=== PATIENT | female | born 1950 | race Caucasian/White ===

== ENCOUNTER 2019-02-08 20:22 | Inpatient (IN) | payer OTHER, BC ==
[2019-02-08 21:29] LABS: Arterial Blood Carboxyhemoglob 0.8 % (0-1.5); Blood Gas Oxyhemoglobin 87.7 % (94-97); Blood O2 Saturation 88.9 % (92-98.5)
[2019-02-08 22:23] LABS: Absolute Lymphocytes (CBC) 2.5 K/uL (0.7-4.9); Hematocrit 43.8 % (36.0-45.0); Lymphocytes % 19.1 % (15.3-44.8); MPV 7.4 fL (7.6-11.3)
[2019-02-08 22:38] LABS: Protime INR 1.08
[2019-02-08 22:41] LABS: Magnesium 1.8 mg/dL (1.8-2.4); Potassium 3.8 mmol/L (3.5-5.1); Troponin (Emerg Dept Use Only) 0.29 ng/mL (0.0-0.045)
[2019-02-08] MEDS ORDERED: ASPIRIN 81 MG CHEWABLE TABLET ONE (23:02)
[2019-02-08] MEDS ORDERED: ENOXAPARIN 100 MG/ML SYR SQ ONE (23:03)
--- NOTE | 2019-02-08 23:17 | EDPHYS ---
Physician Documentation [facility] Name: Selene Oneal Age: 68 yrs Sex: Female : 1950 Arrival Date: 02/08/2019 Time: 20:26 Bed 26 Private MD: ALIREZA Physician Ryan Pemberton HPI: 02/08 21:59 This 68 yrs old Female presents to ER via Ambulatory with complaints of snw Shortness Of Breath, Asthma Exacerbation. 21:59 The patient has shortness of breath at rest. Onset: The symptoms/episode began/occurred snw gradually, 4 month(s) ago, and became persistent. Duration: The symptoms are continuous, and are steadily getting worse. The patient's shortness of breath is aggravated by supine position. Associated signs and symptoms: Pertinent positives: shortness of breath. Severity of symptoms: At their worst the symptoms were moderate. The patient has experienced similar episodes in the past, chronically. sees Brand Sales Consultant, no home O2. Historical: - Allergies: 20:43 Clarithromycin; aj1 20:43 PENICILLINS; aj1 20:43 mycins; aj1 20:43 Doxycycline (stomach pain); aj1 - Home Meds: 20:43 Albuterol Inhl [Active]; Albuterol Nebulizer [Active]; aspirin 81 mg Oral chew 1 tab aj1 once daily [Active]; atenolol 25 mg Oral tab 1 tab once daily [Active]; Betamethasone Valerate Topical as needed [Active]; CoQ10 daily [Active]; duloxetine 30 mg oral cpDR 1 cap 2 times per day [Active]; famotidine 20 mg Oral tab 1 tab every 12 hours [Active]; fluticasone-salmeterol inhalation inhalation 2 times per day [Active]; gabapentin 100 mg oral cap twice daily [Active]; montelukast 10 mg oral tab 1 tab once daily [Active]; omalizumab subcutaneous subcutaneous every 4 wks [Active]; prednisone 20 mg Oral tab once daily [Active]; simvastatin 20 mg Oral tab 1 tab at bedtime [Active]; tizanidine 4 mg oral cap 1 cap as needed [Active]; Vitamin D3 oral oral daily [Active]; Zyrtec 10 mg Oral tab 1 tab once daily [Active]; - PMHx: 20:43 Bronchitis; fibrobyalgia; Hypertension; Sleep Apnea; Asthma; Osteoporosis; aj1 - Immunization history:: Flu vaccine is not up to date. - Social history:: Smoking status: Patient/guardian denies using tobacco, the patient reports quitting approximately 40 years ago. - Ebola Screening: : Patient denies travel to an Ebola-affected area in the 21 days before illness onset. ROS: 21:45 Constitutional: Negative for fever, chills, and weight loss, Eyes: Negative for injury, snw pain, redness, and discharge, ENT: Negative for injury, pain, and discharge, Neck: Negative for injury, pain, and swelling, Cardiovascular: Negative for chest pain, palpitations, and edema, Abdomen/GI: Negative for abdominal pain, nausea, vomiting, diarrhea, and constipation, Back: Negative for injury and pain, : Negative for injury, bleeding, discharge, and swelling, MS/Extremity: Negative for injury and deformity, Skin: Negative for injury, rash, and discoloration, Neuro: Negative for headache, weakness, numbness, tingling, and seizure, Psych: Negative for depression, anxiety, suicide ideation, homicidal ideation, and hallucinations. 21:45 Respiratory: Positive for shortness of breath, at rest. Exam: 21:45 Constitutional: This is a well developed, well nourished patient who is awake, alert, snw and in no acute distress. Head/Face: Normocephalic, atraumatic. Eyes: Pupils equal round and reactive to light, extra-ocular motions intact. Lids and lashes normal. Conjunctiva and sclera are non-icteric and not injected. Cornea within normal limits. Periorbital areas with no swelling, redness, or edema. ENT: Nares patent. No nasal discharge, no septal abnormalities noted. Tympanic membranes are normal and external auditory canals are clear. Oropharynx with no redness, swelling, or masses, exudates, or evidence of obstruction, uvula midline. Mucous membranes moist. Neck: Trachea midline, no thyromegaly or masses palpated, and no cervical lymphadenopathy. Supple, full range of motion without nuchal rigidity, or vertebral point tenderness. No Meningismus. Chest/axilla: Normal chest wall appearance and motion. Nontender with no deformity. No lesions are appreciated. Cardiovascular: Regular rate and rhythm with a normal S1 and S2. No gallops, murmurs, or rubs. Normal PMI, no JVD. No pulse deficits. Respiratory: Lungs have equal breath sounds bilaterally, clear to auscultation and percussion. No rales, rhonchi or wheezes noted. No increased work of breathing, no retractions or nasal flaring. Abdomen/GI: Soft, non-tender, with normal bowel sounds. No distension or tympany. No guarding or rebound. No evidence of tenderness throughout. Back: No spinal tenderness. No costovertebral tenderness. Full range of motion. Skin: Warm, dry with normal turgor. Normal color with no rashes, no lesions, and no evidence of cellulitis. MS/ Extremity: Pulses equal, no cyanosis. Neurovascular intact. Full, normal range of motion. Neuro: Awake and alert, GCS 15, oriented to person, place, time, and situation. Cranial nerves II-XII grossly intact. Motor strength 5/5 in all extremities. Sensory grossly intact. Cerebellar exam normal. Normal gait. Psych: Awake, alert, with orientation to person, place and time. Behavior, mood, and affect are within normal limits. Vital Signs: 20:43 BP 122 / 81; Pulse 85; Resp 20; Temp 97.5(TE); Pulse Ox 96% on R/A; Weight 86.18 kg aj1 (R); Height 5 ft. 5 in. (165.10 cm) (R); Pain 0/10; 21:30 BP 120 / 79; Pulse 85; Resp 19; Pulse Ox 97% on R/A; rv 22:30 BP 96 / 71; Pulse 85; Resp 18; Pulse Ox 95% on R/A; rv 23:00 BP 112 / 82; Pulse 84; Resp 16; Pulse Ox 97% on R/A; rv 23:45 BP 139 / 102; Pulse 82; Resp 15; Pulse Ox 99% on 2 lpm NC; rv 20:43 Body Mass Index 31.62 (86.18 kg, 165.10 cm) aj MDM: 21:09 Patient medically screened. snw 23:12 Data reviewed: vital signs, nurses notes. Data interpreted: Pulse oximetry: on room air snw is 96 %. Interpretation: normal. Counseling: I had a detailed discussion with the patient and/or guardian regarding: the historical points, exam findings, and any diagnostic results supporting the discharge/admit diagnosis, the presence of at least one elevated blood pressure reading (>120/80) during this emergency department visit, lab results, radiology results, the need for further work-up and treatment in the hospital. Physician consultation: Doug Hernandez DO was called at 23:14, was contacted at 23:14, regarding admission, to the telemetry unit. 02/08 21:04 Order name: ABG snw 02/08 21:33 Order name: Basic Metabolic Panel; Complete Time: 22:48 snw 02/08 21:33 Order name: CBC with Diff; Complete Time: 22:26 snw 02/08 21:33 Order name: Magnesium; Complete Time: 22:48 snw 02/08 21:33 Order name: NT PRO-BNP; Complete Time: 22:48 snw 02/08 21:33 Order name: PT-INR; Complete Time: 22:55 snw 02/08 20:47 Order name: Chest Pa And Lat (2 Views) XRAY aj1 02/08 21:33 Order name: Troponin (emerg Dept Use Only); Complete Time: 22:48 snw 02/08 21:33 Order name: EKG; Complete Time: 21:34 snw 02/08 21:33 Order name: Cardiac monitoring; Complete Time: 22:58 snw 02/08 21:33 Order name: EKG - Nurse/Tech; Complete Time: 22:58 w 02/08 21:33 Order name: DD; Complete Time: 22:55 snw 02/08 21:33 Order name: IV Saline Lock; Complete Time: 22:08 w 02/08 21:33 Order name: Labs collected and sent; Complete Time: 22:08 snw 02/08 21:33 Order name: O2 Per Protocol; Complete Time: 22:58 snw 02/08 21:33 Order name: O2 Sat Monitoring; Complete Time: 22:58 snw Administered Medications: 23:12 Drug: Lovenox 1 mg/kg Route: Sub-Q; Site: right lower abdomen; rv 23:55 Follow up: Response: No adverse reaction rv 23:13 Drug: Aspirin Chewable Tablet 324 mg Route: PO; rv 23:55 Follow up: Response: No adverse reaction rv Disposition: 02/08/19 23:16 Hospitalization ordered by Doug Hernandez for Inpatient Admission. Preliminary diagnosis are Hypoxemia, renal insufficiency. - Bed requested for Telemetry/MedSurg (Inpatient). - Status is Inpatient Admission. rv - Condition is Stable. - Problem is an acute exacerbation. - Symptoms have worsened. UTI on Admission? No Addendum: 02/11/2019 07:41 Co-signature as Attending Physician, Ryan Pemberton MD I agree with the assessment and c montero plan of care. Signatures: Dispatcher [employer] Isis Reed RN RN aj1 Emma Shabazz RN Ryan Wilson MD MD cha Therrien, Shelly, CMO & PRESIDENT-C CMO & PRESIDENT-Csnw Moody Adams, RN RN rv Corrections: (The following items were deleted from the chart) 02/08 23:37 23:16 Hospitalization Ordered by Doug Hernandez DO for Inpatient Admission. Preliminary diagnosis is Hypoxemia; renal insufficiency. Bed requested for Telemetry/MedSurg (Inpatient). Status is Inpatient Admission. Condition is Stable. Problem is an acute exacerbation. Symptoms have worsened. UTI on Admission? No. snw 23:58 23:37 02/08/2019 23:16 Hospitalization Ordered by Doug Hernandez DO for Inpatient rv Admission. Preliminary diagnosis is Hypoxemia; renal insufficiency. Bed requested for Telemetry/MedSurg (Inpatient). Status is Inpatient Admission. Condition is Stable. Problem is an acute exacerbation. Symptoms have worsened. UTI on Admission? No. mw
--- NOTE | 2019-02-08 23:17 | ER ---
Nurse's Notes [facility] Name: Selene Oneal Age: 68 yrs Sex: Female : 1950 Arrival Date: 02/08/2019 Time: 20:26 Bed 26 Private MD: Diagnosis: Hypoxemia;renal insufficiency Presentation: 02/08 20:30 Presenting complaint: Patient states: Cough, shortness of breath for the past 2 months. aj1 States that she checked her oxygen this morning and her O2 sat was 84%. O2 sat is currently 97% on room air. Denies fever. Transition of care: patient was not received from another setting of care. Onset of symptoms was 2018. Risk Assessment: Do you want to hurt yourself or someone else? Patient reports no desire to harm self or others. Initial Sepsis Screen: Does the patient meet any 2 criteria? No. Patient's initial sepsis screen is negative. Does the patient have a suspected source of infection? No. Patient's initial sepsis screen is negative. Care prior to arrival: None. 20:30 Method Of Arrival: Ambulatory aj1 20:30 Acuity: RUT 3 aj1 Triage Assessment: 20:43 General: Appears in no apparent distress. comfortable, Behavior is calm, cooperative, aj1 appropriate for age. Pain: Denies pain. Neuro: Level of Consciousness is awake, alert, obeys commands, Oriented to person, place, time, situation. Cardiovascular: Patient's skin is warm and dry. Respiratory: Reports shortness of breath Airway is patent Respiratory effort is even, unlabored, Respiratory pattern is regular, symmetrical, Onset: The symptoms/episode began/occurred 2 months ago, the patient has mild shortness of breath. Historical: - Allergies: 20:43 Clarithromycin; aj1 20:43 PENICILLINS; aj1 20:43 mycins; aj1 20:43 Doxycycline (stomach pain); aj1 - Home Meds: 20:43 Albuterol Inhl [Active]; Albuterol Nebulizer [Active]; aspirin 81 mg Oral chew 1 tab aj1 once daily [Active]; atenolol 25 mg Oral tab 1 tab once daily [Active]; Betamethasone Valerate Topical as needed [Active]; CoQ10 daily [Active]; duloxetine 30 mg oral cpDR 1 cap 2 times per day [Active]; famotidine 20 mg Oral tab 1 tab every 12 hours [Active]; fluticasone-salmeterol inhalation inhalation 2 times per day [Active]; gabapentin 100 mg oral cap twice daily [Active]; montelukast 10 mg oral tab 1 tab once daily [Active]; omalizumab subcutaneous subcutaneous every 4 wks [Active]; prednisone 20 mg Oral tab once daily [Active]; simvastatin 20 mg Oral tab 1 tab at bedtime [Active]; tizanidine 4 mg oral cap 1 cap as needed [Active]; Vitamin D3 oral oral daily [Active]; Zyrtec 10 mg Oral tab 1 tab once daily [Active]; - PMHx: 20:43 Bronchitis; fibrobyalgia; Hypertension; Sleep Apnea; Asthma; Osteoporosis; aj1 - Immunization history:: Flu vaccine is not up to date. - Social history:: Smoking status: Patient/guardian denies using tobacco, the patient reports quitting approximately 40 years ago. - Ebola Screening: : Patient denies travel to an Ebola-affected area in the 21 days before illness onset. Screenin:38 Abuse screen: Denies threats or abuse. Denies injuries from another. Nutritional rv screening: No deficits noted. Tuberculosis screening: No symptoms or risk factors identified. Fall Risk None identified. Assessment: 21:24 General: Appears in no apparent distress. comfortable, Behavior is calm, cooperative. rv Pain: Denies pain. Neuro: Level of Consciousness is awake, alert, obeys commands, Oriented to person, place, time, situation. 22:37 Cardiovascular: Rhythm is regular. Respiratory: Airway is patent Breath sounds are rv coarse in left posterior upper lobe and left posterior lower lobe. GI: No signs and/or symptoms were reported involving the gastrointestinal system. : No signs and/or symptoms were reported regarding the genitourinary system. EENT: No signs and/or symptoms were reported regarding the EENT system. Derm: Skin is intact. Musculoskeletal: No signs and/or symptoms reported regarding the musculoskeletal system. 22:54 Reassessment: Laboratory staff Lui called and relayed critical result of D-Dimer cc3 which is 4330, SURFACE GRINDING MACHINE HAND Simona informed. Vital Signs: 20:43 BP 122 / 81; Pulse 85; Resp 20; Temp 97.5(TE); Pulse Ox 96% on R/A; Weight 86.18 kg aj1 (R); Height 5 ft. 5 in. (165.10 cm) (R); Pain 0/10; 21:30 BP 120 / 79; Pulse 85; Resp 19; Pulse Ox 97% on R/A; rv 22:30 BP 96 / 71; Pulse 85; Resp 18; Pulse Ox 95% on R/A; rv 23:00 BP 112 / 82; Pulse 84; Resp 16; Pulse Ox 97% on R/A; rv 23:45 BP 139 / 102; Pulse 82; Resp 15; Pulse Ox 99% on 2 lpm NC; rv 20:43 Body Mass Index 31.62 (86.18 kg, 165.10 cm) aj1 ED Course: 20:26 Patient arrived in ED. ds1 20:37 Triage completed. aj1 20:43 Arm band placed on Patient placed in waiting room, Patient notified of wait time. aj1 20:58 Moody Adams RN is Primary Nurse. rv 21:04 Simoan Limon FNP-C is PHCP. snw 21:04 Ryan Pemberton MD is Attending Physician. snw 21:12 Chest Pa And Lat (2 Views) XRAY In Process Unspecified. EDMS 22:07 Missed attempt(s): 22 gauge in right antecubital area. lt1 22:07 Inserted saline lock: 22 gauge in left antecubital area, using aseptic technique. lt1 22:37 Patient has correct armband on for positive identification. Call light in reach. Side rv rails up X 1. Adult w/ patient. court recording monitor on. Pulse ox on. NIBP on. 23:15 Doug Hernandez DO is Hospitalizing Provider. snw 23:55 No provider procedures requiring assistance completed. Patient admitted, IV remains in rv place. Administered Medications: 23:12 Drug: Lovenox 1 mg/kg Route: Sub-Q; Site: right lower abdomen; rv 23:55 Follow up: Response: No adverse reaction rv 23:13 Drug: Aspirin Chewable Tablet 324 mg Route: PO; rv 23:55 Follow up: Response: No adverse reaction rv Outcome: 23:16 Decision to Hospitalize by Provider. snw 23:57 Admitted to Med/surg accompanied by nurse, via wheelchair, room 215, with oxygen, with rv chart, Report called to dave yu 23:57 Condition: stable 23:57 Discharge instructions given to patient, Instructed on the need for admit, Demonstrated understanding of instructions. 23:58 Patient left the ED. rv Signatures: Dispatcher [employer] Isis Reed RN RN aj1 Simona Limon, LEAD PROGRAMMER ANALYST-C LEAD PROGRAMMER ANALYST-Csnw Janet Mcnulty ds1 Moody Adams RN RN rv Niru Reynolds cc3 Kylee Conroy 1
--- NOTE | 2019-02-08 23:48 | P.HP ---
Certification for Inpatient Patient admitted to: Inpatient With expected LOS: >2 Midnights Patient will require the following post-hospital care: Home Health Services Practitioner: I am a practitioner with admitting privileges, knowledge of patient current condition, hospital course, and medical plan of care. Services: Services provided to patient in accordance with Admission requirements found in Title 42 Section 412.3 of the Code of Federal Regulations Patient History Date of Service: 02/08/19 Primary Care Provider: Dr. Segura([facility]); Cardiology-Dr. Acuña; Pulm- Dr. Joel Reason for admission: Shortness of breath History of Present Illness: 68-year-old female presented to the emergency room with shortness of breath. Patient with history of asthma, obstructive sleep apnea, hypertension, prior tobacco use, fibromyalgia, hyperlipidemia and seasonal allergies. Patient has been reporting shortness of breath for the past several weeks. This is been getting worse. Apparently had seen her gravity prospecting supervisor about a week ago. She was given doxycycline for bronchitis. She has taking prednisone often on over the past several weeks. Her shortness of breath has not improved. She has reported shortness of breath with exertion with mild chest pain. She reports a cough and wheezing. She denies any fever, chills. Today she noted that her oxygen saturations were in the low 80 percentile. She was able to use her 's saturation monitored to evaluate. Patient came to the ER for further evaluation. In the ER patient appeared stable. On lab ABG showed a pH of 7.47 with a pCO2 of 30 and a PO2 of 56. Vital signs were stable. White count 13.1, hemoglobin 14.2. Sodium 144, potassium 3.8. BUN of 25, creatinine 1.9 with a GFR of 26. Glucose 143. Troponin was elevated at 0.24 BNP elevated at 7800, D-dimer was elevated at 4330. Chest x-ray unremarkable. Patient was given oxygen with improvement. Patient admitted for further evaluation and treatment. When I saw the patient ER, she appeared stable. She did not appear in any respiratory distress. Patient sees pulmonology and Cardiology at [facility] in [place]. Patient may have underlying chronic kidney disease but she is no suree. She has had no prior cardiac evaluation or poor heart attack. She was told that she may have underlying pulmonary hypertension. Allergies clarithromycin Allergy (Unverified 05/24/17 17:17) Unknown Penicillins Allergy (Unverified 05/24/17 17:17) Unknown mycins Allergy (Uncoded 05/24/17 17:17) Unknown Home medications list reviewed: Yes - Past Medical/Surgical History Diabetic: No -: Hypertension -: Asthma -: Fibromyalgia -: Prior tobacco use -: Seasonal allergies -: Hyperlipidemia -: Foot surgery Psychosocial/ Personal History: Patient is . Lives at home. - Family History Father -: Lung disease (COPD) - Social History Smoking Status: Former smoker Counseled patient to stop smoking for: less than 10 minutes Smoking therapy provided: Yes Patient receptive to therapy: Yes Alcohol use: No CD- Drugs: No Caffeine use: Yes Place of Residence: Home Review of Systems General: As per HPI Eyes: Unremarkable ENT: Nose Congestion, As per HPI Respiratory: Shortness of Breath, SOB with Excertion, As per HPI Cardiovascular: Chest Pain, As per HPI Gastrointestinal: Unremarkable Genitourinary: Unremarkable Musculoskeletal: Unremarkable Integumentary: Unremarkable Neurological: Unremarkable Lymphatics: Unremarkable Physical Examination - Physical Exam General: Alert, In no apparent distress, Oriented x3, Cooperative HEENT: Atraumatic, Normocephalic, PERRLA, Mucous membr. moist/pink Neck: Supple, No Thyromegaly Respiratory: Clear to auscultation bilaterally, Normal air movement Cardiovascular: Normal pulses, Regular rate/rhythm Gastrointestinal: Normal bowel sounds, Soft and benign, Non-distended, No ascites, No tenderness, No masses, No rebound, No guarding Musculoskeletal: No contractures, No erythema, No tenderness, No warmth Integumentary: No tenderness/swelling, No erythema, No warmth, No cyanosis Neurological: Normal speech, Normal strength at 5/5 x4 extr, Normal tone, Normal affect - Studies Laboratory Data (last 24 hrs) 02/08/19 22:05: PT 12.7 H, INR 1.08 02/08/19 22:05: WBC 13.1 H, Hgb 14.7, Hct 43.8, Plt Count 271 02/08/19 22:05: Sodium 144, Potassium 3.8, BUN 25 H, Creatinine 1.90 H, Glucose 143 H, Magnesium 1.8 Assessment and Plan - Plan Impression: Shortness of breath with chest pain likely related to asthma exacerbation with hypoxia Elevated troponin suspect underlying CAD Hypertension Hyperlipidemia Chronic kidney disease, stage IV Fibromyalgia Obstructive sleep apnea Obesity Plan: Shortness of breath with chest pain likely related to asthma exacerbation with hypoxia: Patient be admitted for further evaluation and treatment. Shortness of breath and chest pain may be related to asthma exacerbation versus cardiac etiology. Will provide oxygen to maintain sats above 93%. Will provide asthma medication as well. Continue prednisone 20 mg 1 pill twice daily. Will consult pulmonology to further evaluate. Will need to consider V/Q scan to evaluate for possible underlying embolism. Will obtain venous Doppler of the lower extremities to rule out DVT. Patient with elevated troponin. Cardiac workup will follow. Cardiology consulted. Will obtain echocardiogram to further assess. Patient will be kept NPO after midnight in the event that the patient will require cardiac evaluation. Patient will likely require oxygen at discharge. Will obtain procalcitonin to rule out infectious cause. Will also obtain blood and sputum culture. Daytime hospitalist team will continue her care. Anticipate discharge in the next 48-72 hr pending workup in improvement. Elevated troponin suspect underlying CAD: Cardiology to further assess. Continue to monitor cardiac enzymes and telemetry. Will continue aspirin. Patient given Lovenox in the emergency room. Will continue with DVT prophylaxis for now all. Await further recommendation from Cardiology. Will keep the patient NPO for possible cardiac evaluation. Hypertension: Patient normally takes atenolol. Will provide metoprolol instead. Hyperlipidemia: Will continue with Lipitor. Chronic kidney disease, stage IV: Patient likely has underlying chronic renal disease. She reports that her PCP had mentioned that she has stage IV disease. Will obtain renal ultrasound to further assess. Nephrology consulted for further recommendation. Fibromyalgia: Will obtain and restart home medication. Obstructive sleep apnea: Will continue CPAP at night. Obesity: Will measure BMI. Address lifestyle modification education. Discharge Plan: Home Plan to discharge in: 72 Hours - Advance Directives Does patient have a Living Will: No Does patient have a Durable POA for Healthcare: No - Code Status/Comfort Care Code Status Assessed: Yes (Patient is full code) Time Spent Managing Pts Care (In Minutes): 55
[2019-02-09] MEDS ORDERED: GABAPENTIN 100 MG CAP PO PRN (00:18)
[2019-02-09] MEDS ORDERED: ONDANSETRON 4 MG/2 ML VIAL IV PRN (00:18)
[2019-02-09] MEDS ORDERED: ACETAMINOPHEN 500 MG TAB PO PRN (00:18)
[2019-02-09 01:59] LABS: Urine Appearance CLEAR; Urine Bilirubin NEGATIVE (NEG); Urine Blood NEGATIVE (NEG); Urine Color YELLOW; Urine Glucose NEGATIVE (NEG); Urine Protein NEGATIVE (NEG); Urine Specific Gravity 1.025 (1.005-1.030); Urine Urobilinogen 0.2 mg/dL (0.2-1.0); Urine pH 5.5 (5.0-7.0)
[2019-02-09 02:02] LABS: Urine Microscopic Reflex ORDER UMIC
[2019-02-09 03:33] LABS: Calcium Oxalate Crystals- Ur MANY (NONE SEEN); Urine Bacteria <20 /HPF (<20); Urine Culture Reflex Order REFLEXED; Urine RBC NONE SEEN /HPF (NONE SEEN)
[2019-02-09] MEDS: PANTOPRAZOLE 40MG TABLET PO SCH (05:15)
[2019-02-09] MEDS: METOPROLOL TAR 25 MG TAB PO SCH ×2 (05:15→18:42)
[2019-02-09 06:06] LABS: Absolute Lymphocytes (CBC) 1.3 K/uL (0.7-4.9); Basophils % 0.8 % (0-1.3); Hematocrit 41.1 % (36.0-45.0); Lymphocytes % 14.8 % (15.3-44.8); MPV 7.6 fL (7.6-11.3); RBC Red Blood Cell Count 4.62 M/uL (3.86-4.86)
[2019-02-09] MEDS: IPRATROPIUM BROM 0.5MG/2.5ML NEB PRN (06:20)
[2019-02-09] MEDS: ARFORMOTEROL TARTRATE 15 MCG/2 ML VIAL.NEB NEB SCH ×2 (06:20→19:09)
[2019-02-09] MEDS: ALBUTEROL 2.5 MG/3 ML NEB SOL NEB PRN (06:20)
[2019-02-09 06:32] LABS: CKMB Creatine Kinase MB 2.2 ng/mL (0.3-3.6); Magnesium 1.9 mg/dL (1.8-2.4); Potassium 4.3 mmol/L (3.5-5.1); Thyroid Stimulating Hormone 0.45 uIU/mL (0.360-3.740); Troponin I 0.19 ng/mL (0.0-0.045)
--- NOTE | 2019-02-09 06:44 | RAD REPORT ---
EXAM DESCRIPTION: RAD - Chest Pa And Lat (2 Views) - 02/08/2019 9:14 pm CLINICAL HISTORY: SOB COMPARISON: March 2015 TECHNIQUE: PA and lateral views of the chest were obtained. FINDINGS: The lungs are clear. Interstitial pattern matches the comparison. Heart size is normal an d central vasculature is within normal limits. No pleural effusion or pneumothorax seen. No acute b bruce finding noted. No aortic abnormality. IMPRESSION: No acute cardiopulmonary process. No significant interval change.
--- NOTE | 2019-02-09 07:24 | EKG ---
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
--- NOTE | 2019-02-09 08:21 | RAD REPORT ---
EXAM DESCRIPTION: US - Extrem Venous W Compress David - 02/09/2019 8:08 am CLINICAL HISTORY: Leg pain and swelling, abnormal D-dimer COMPARISON: None. TECHNIQUE: Real-time sonographic evaluation of the bilateral lower extremity common femoral, superfi cial femoral, popliteal and posterior tibial veins was performed. FINDINGS: Normal compressibility, flow augmentation, phasic flow and spontaneous flow are identified in the left and right lower extremity common femoral, superficial femoral, popliteal and posterior t ibial veins. No intraluminal filling defects seen. IMPRESSION: No DVT in either lower extremity.
--- NOTE | 2019-02-09 08:22 | RAD REPORT ---
EXAM DESCRIPTION: US - Renal Ultrasound-Complete - 02/09/2019 8:08 am CLINICAL HISTORY: Abnormal renal function COMPARISON: None. FINDINGS: The right kidney measures 9.4 x 4.4 x 5.6 cm. The left kidney measures 10.2 x 4.9 x 4.6 c m. Renal cortical thickness and echogenicity are normal. No hydronephrosis or suspicious renal mass. Contracted urinary bladder shows no suspicious finding. IMPRESSION: No hydronephrosis or suspicious renal mass. No other significant findings.
[2019-02-09] MEDS ORDERED: predniSONE 20 MG TAB PO SCH (09:00)
[2019-02-09] MEDS ORDERED: ENOXAPARIN 40 MG/0.4 ML SQ SCH (09:00)
[2019-02-09] MEDS ORDERED: ASPIRIN 81 MG CHEWABLE TABLET PO SCH (09:00)
[2019-02-09] MEDS ORDERED: ENOXAPARIN 60 MG/0.6 ML SQ ONE (11:30)
[2019-02-09] MEDS ORDERED: NA CHLORIDE 0.9% 250 ML IV ONE (11:41)
[2019-02-09] MEDS ORDERED: NA CHLORIDE 0.9% 1,000 ML IV SCH (12:00)
--- NOTE | 2019-02-09 12:01 | P.CNS ---
Date of Consult: 02/09/19 Primary Care Provider: Dr. Segura([facility]); Cardiology-Dr. Acuña; Pulm- Dr. Joel Chief Complaint: Respiratory failure History of Present Illness: Patient is a pleasant 68-year-old lady who was obstructive airways disease presumed asthma has never smoked compliant with her inhalers having problems for the past year she used to mobile lawn using a tractor past 2 months patient has become worse having more shortness of breath cough congestion and describes it as a bronchitis compliant with it inhalers no relief admitted with hypoxemia chest x-rays clear apparently she also fell 2 weeks ago also has some pleuritic chest pain no prior history of coronary artery disease denies any chest pain on exertion patient is compliant with her Advair all her primary care doctor was at our [facility] patient also states that her condition became acutely worse on Friday apparently she had a transient blacked out and appeared in the emergency Allergies clarithromycin Allergy (Verified 02/09/19 00:16) Unknown doxycycline Allergy (Verified 02/09/19 01:07) Nausea/Vomiting Penicillins Allergy (Verified 02/09/19 00:16) Unknown mycins Allergy (Uncoded 02/09/19 00:16) Unknown Home Medications: Albuterol Neb [Proventil 0.083% Neb Soln] 2.5 mg NEB QID PRN 02/09/19 Albuterol Sulfate [Albuterol Sulfate Hfa] 2 puff IN TID PRN 02/09/19 Aspirin 81 mg PO DAILY 02/09/19 Atenolol [Tenormin*] 25 mg PO DAILY 02/09/19 Betamethasone Dipropionate 1 zina TOP BID PRN 02/09/19 Cetirizine HCl [Zyrtec] 10 mg PO DAILY 02/09/19 Cholecalciferol (Vitamin D3) [Vitamin D3] 2,000 unit PO DAILY 02/09/19 Duloxetine HCl 20 mg PO DAILY 02/09/19 Epinephrine [Epipen] 0.3 ml IM PRN 02/09/19 Famotidine 20 mg PO BID 02/09/19 Fluticasone/Salmeterol [Advair Hfa 230-21 Mcg Inhaler] 2 puff IH BID 02/09/19 Gabapentin 100 mg PO BID 02/09/19 Montelukast [Singulair] 10 mg PO DAILY 02/09/19 Omalizumab [Xolair] 300 mg SQ SEECOM 02/09/19 Simvastatin 20 mg PO BEDTIME 02/09/19 Tizanidine [Zanaflex*] 4 mg PO Q8HP PRN 02/09/19 Ubidecarenone [Co Q-10] 100 mg PO DAILY 02/09/19 predniSONE [Prednisone] 20 mg PO DAILY 02/09/19 - Past Medical/Surgical History Diabetic: No -: Hypertension -: Asthma -: Fibromyalgia -: Prior tobacco use -: Seasonal allergies -: Hyperlipidemia -: Foot surgery Psychosocial/ Personal History: Patient is . Lives at home. - Family History Father Medical History: Lung disease (COPD) - Social History Alcohol use: No CD- Drugs: No Caffeine use: Yes Place of Residence: Home Review of Systems 10-point ROS is otherwise unremarkable Physical Examination Temp Pulse Resp BP Pulse Ox 97 F 83 20 126/78 94 02/09/19 08:00 02/09/19 08:00 02/09/19 08:00 02/09/19 08:00 02/09/19 08:00 General: Alert, In no apparent distress, Oriented x3 HEENT: Atraumatic Neck: Supple Respiratory: Clear to auscultation bilaterally, Diminished Cardiovascular: No edema, Regular rate/rhythm, Normal S1 S2 Gastrointestinal: Normal bowel sounds, Soft and benign Musculoskeletal: No clubbing, No swelling Laboratory Data (last 24 hrs) 02/08/19 22:05: PT 12.7 H, INR 1.08 02/08/19 22:05: WBC 13.1 H, Hgb 14.7, Hct 43.8, Plt Count 271 02/08/19 22:05: Sodium 144, Potassium 3.8, BUN 25 H, Creatinine 1.90 H, Glucose 143 H, Magnesium 1.8 - Problems (1) Asthma exacerbation Current Visit: Yes Status: Acute Plan: Patient is 68 years of age with poorly controlled asthma on Advair admitted with worsening asthma no clinical evidence of sepsis she was in respiratory failure hypoxemia respiratory alkalosis chest x-ray hyperinflated apparently she had an acute deterioration since Friday patient's D-dimer is significantly elevated she is hypoxic agree with CT pulmonary angiogram if negative then the patient can be discharged home on Advair and prednisone 2D echocardiogram Qualifiers: Asthma severity: severe
--- NOTE | 2019-02-09 12:16 | ECHO ---
HEIGHT: 5 ft 5 in WEIGHT: 191 lb 14.4 oz DATE OF STUDY: 02/09/[address]: Doug Hernandez DO 2-DIMENSIONAL: YES M.MODE: YES DOPPLER: YES COLOR FLOW: YES TDS: NO PORTABLE: NO DEFINITY: NO BUBBLE STUDY: NO DIAGNOSIS: SHORTNESS OF BREATH, ELEVATED TROPONIN, PULMONARY HYPERTENSION CARDIAC HISTORY: CATHERIZATION: NO SURGERY: NO PROSTHETIC VALVE: NO PACEMAKER: NO MEASUREMENTS (cm) DIASTOLIC (NORMALS) SYSTOLIC (NORMALS) IVSd 1.1 (0.6-1.2) LA Diam (1.9-4.0) LVEF 73% LVIDd 3.5 (3.5-5.7) LVIDs 2.1 (2.0-3.5) %FS 41% LVPWd 1.0 (0.6-1.2) Ao Diam 2.9 (2.0-3.7) 2 DIMENSIONAL ASSESSMENT: RIGHT ATRIUM: DILATED LEFT ATRIUM: NORMAL RIGHT VENTRICLE: DILATED LEFT VENTRICLE: NORMAL TRICUSPID VALVE: NORMAL MITRAL VALVE: NORMAL PULMONIC VALVE: NORMAL AORTIC VALVE: NORMAL PERICARDIAL EFFUSION: NONE AORTIC ROOT: NORMAL LEFT VENTRICULAR WALL MOTION: PARADOXICAL SEPTAL MOTION SEEN IN RIGHT VENTRICLE PRESSURE OVERLOAD. DOPPLER/COLOR FLOW: MODERATE TRICUSPID REGURGITATION. SEVERE PULMONARY HYPERTENSION ESTIMATED RIGHT VENTRICULAR SYSTOLIC PRESSURE 64mmHg. COMMENTS: NORMAL LEFT VENTRICULAR EJECTION FRACTION WITH PARADOXICAL SEPTAL MOTION. DILATED RIGHT ATRIUM AND VENTRICLE. SEVERE PULMONARY HYPERTENSION. TECHNOLOGIST: FILIPE LARIOS
--- NOTE | 2019-02-09 12:44 | CON ---
Identification: Mrs. Fragoso is 68. Chief Complaint: Shortness of breath, near syncope. History Of Present Illness: Mrs. Fragoso has been having a lot of trouble with shortness of breath. She has attributed to asthma. Seen a lung specialist who knows her. They have tried some antibiot ics that did not seem to help. One of them may have made it worse making her throw up. Sometime she describes her shortness of breath as an elephant sitting on her chest. She describes it various way s. She does admit to having dyspnea on exertion, and some tightness and pressure and elephant feelin gs. Since she has been here in the hospital, her troponins are abnormal and I have recommended a car diac catheterization to her. 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 Her EKG shows a septal MT. She has underlying lung condition. She has d yslipidemia. She does not have diabetes. She takes blood pressure medicines. Outpatient Medications: Tizanidine, simvastatin, prednisone, omalizumab, montelukast, gabapentin, fl uticasone with salmeterol, famotidine, EpiPen p.r.n., duloxetine, betamethasone, atenolol, aspirin, a lbuterol, cetirizine. Allergies: SHE REPORTS DRUG ALLERGIES TO CLARITHROMYCIN, DOXYCYCLINE, PENICILLIN, AND ALL OF THE MYC IN DRUGS. Physical Examination: Vital Signs: She is 5 feet 5 inches tall, 191 pounds, body mass index 31. General: Obese, alert, oriented, pleasant, not in distress. Not having chest pain or shortness of b reath during the exam. Lungs: Do not reveal crackles or wheeze. Heart: Within normal limits. Abdomen: Soft. Extremities: Mild edema. Distal pulses palpable. Diagnostic Data: Her EKG shows a septal MT and her troponins are abnormal. Recommendations: So again I have recommended cardiac cath and the plan right now is to find an accep table place for her to do a cardiac cath with her usual screen printing press operator. MARLO/JAYSHREE Voice ID: [id number] Report ID: [id number]
--- NOTE | 2019-02-09 12:45 | RAD REPORT ---
EXAM DESCRIPTION: CT - Chest For Pe Angio - 02/09/2019 12:32 pm CLINICAL HISTORY: SOB, elevated D dimer, r/out PEtwo-view chest February 08 COMPARISON: Chest Pa And Lat (2 Views) dated 02/08/2019 TECHNIQUE: Dynamically enhanced 3 mm thick images of the chest were obtained during administration o f approximately 150mL Isovue 370 IV contrast. Coronal and oblique MIP reconstruction images were gene rated and reviewed. Exam utilizes a protocol to evaluate the pulmonary arterial tree. All CT scans are performed using dose optimization technique as appropriate and may include automated exposure control or mA/KV adjustment according to patient size. FINDINGS: Large pulmonary embolus is present at the branch point of the left pulmonary artery into t he left upper and left lower lobe pulmonary arteries. Embolic disease extends into the left upper lob e are branches and into multiple segmental branches in the left lower lobe. Large pulmonary embolus fills the branch point of the right pulmonary artery into the right upper lob e, right middle lobe and right lower lobe branches. Segmental and subsegmental branch emboli present in the right lower lobe. There is a saddle embolus present with a bridging thrombus across the midlin e. No pulmonary hemorrhage is present. Atelectasis changes are present. Right atrial enlargement is present. Right ventricle is within normal range. No pericardial thickenin g or effusion. The aorta as imaged shows no acute or suspicious finding. No infiltrate or mass in the lung parenchyma. No pleural effusion or pleural thickening. No mediastinal or hilar suspicious masses. No chest wall masses or abnormal axillary lymphadenopathy. Ordering physician was notified by telephone approximately 12:35 p.m.. IMPRESSION: Large pulmonary emboli are present at the branch points of the right and left pulmonary arteries into the lobar branches. There are additional segmental and subsegmental branch emboli. Saddle embolus is present as well. No pulmonary hemorrhage.
[2019-02-09 13:49] LABS: CKMB Creatine Kinase MB 1.8 ng/mL (0.3-3.6); Troponin I 0.14 ng/mL (0.0-0.045)
--- NOTE | 2019-02-09 15:58 | CON ---
Date of Consultation: 02/09/2019 Reason For Consultation: Elevated BUN and creatinine, fluid management. History Of Present Illness: This is a pleasant 68-year-old female with significant past medical history of bronchial asthma, GERD, hyperlipidemia, polymyalgia rheumatica. Patient according to her, has been documented for chronic kidney disease, even though reviewing the record from her primary care showing creatinine back in September with creatinine of 1, GFR of 58 to 60. Patient denied taking any nonsteroidal. She has urine hesitancy. No abdominal pain. The patient came to the hospital complaining from nausea and vomiting with shortness of breath and chest tightness. Primary workup showed elevation in BUN and creatinine. For that reason, we have been consulted. Creatinine upon admission was 1.9. GFR down to 26. The patient was started on IV hydration. Creatinine down to 1.2. GFR of 44. Past Medical History: 1. Bronchial asthma. 2. GERD. 3. Hyperlipidemia. 4. Polymyalgia rheumatica. 5. Hypertension. Social History: Ex-smoker. Denied alcohol. Denied drug abuse. Allergies: CLARITHROMYCIN, DOXYCYCLINE AND PENICILLIN. Past Surgical History: Noncontributory. Family History: Positive for hypertension. Review of Systems: Head and Neck: No red eye. No ear pain. GI: No nausea. No vomiting. : Has nocturia. Lens Hardener: No vaginal discharge. Respiratory: Has shortness of breath, has cough. Cardiovascular: No joint pain. Endocrine: No polydipsia. Skin: No rash. Neuro: Has neuropathy, has polymyalgia rheumatica. Musculoskeletal: Has occasional joint pain. No swelling. Physical Examination: Vital Signs: When I saw the patient, blood pressure 126/78, pulse of 83, afebrile. Patient had good urine output. Chest: Clear to auscultation. Heart: S1, S2. Regular. Abdomen: Soft, nontender. No renal bruit. Extremities: No edema. Neurological: Alert and oriented x3. Nonfocal. Reviewing the record back in September 2018 creatinine 0.8 to 1, GFR 63 to 58. Upon admission, sodium 144, potassium 3.8, bicarb 24, BUN 25, creatinine 1.9, GFR 26 , magnesium 1.8, calcium 9.4. BNP 7812. Troponin 0.2. WBC 8.8, H and H 13.9/ 41.1, platelets of 234. Urinalysis; specific gravity of 1.025. +1 leuko esterase, negative for protein. Renal ultrasound 9.4/10.8, no hydronephrosis. Chest x-ray, no cardiomegaly. Physical Examination: Vital Signs: Blood pressure 126/78, pulse of 83, afebrile. Chest: Clear to auscultation. Heart: S1, S2 regular. Abdomen: Soft, nontender. No renal bruit. Extremities: No edema. Neurological: Alert and oriented. Nonfocal. No tremor. Current Medications: The patient on include Tylenol breathing treatment, atorvastatin, Lovenox, gabapentin, metoprolol, pantoprazole. Home Medications: Includes vitamin D, simvastatin, Zanaflex, gabapentin, Pepcid, atenolol breathing treatment. Assessment And Plan: 1. Acute kidney injury secondary to cardiorenal/prerenal poor perfusion, acute tubular necrosis, on the recovery, normal sized kidney, nonproteinuric. I am going to go ahead and continue current treatment. Hold IV fluid for the time being and we will follow up. 2. Hypertension, controlled, optimal, keep avoiding any ROMAINE inhibitor or ARB for the time being. 3. Chronic obstructive pulmonary disease exacerbation/bronchial asthma exacerbation as by primary. 4. Elevation in troponin as by Cardiology. ROSE/JAYSHREE Voice ID: [id number] Report ID: [id number] MTDD
--- NOTE | 2019-02-09 17:11 | P.PN ---
Date of Service: 02/09/19 Patient has massive pulmonary embolism although her vital signs are stable hypoxic blood pressure is also stable of discuss with the patient she is a candidate for thrombolytics therapy discussed with the patient regarding the side effect of bleeding intercranial versus GI patient fully understand the risk and willing to proceed with thrombolytics therapy plan to give her t-PA around 10:00 p.m. today
[2019-02-09 17:42] VITALS: BMI 32.3
[2019-02-09 18:11] LABS: Urine Protein/Creatinine Ratio 0.1 ratio (<0.15)
[2019-02-09] MEDS ORDERED: ALTEPLASE 100 MG/100 ML VIAL IV SCH ×2 (19:00→22:00)
--- NOTE | 2019-02-09 20:05 | PN ---
Date of Progress Note: 02/09/2019 Subjective: Patient seen and examined, chart reviewed, and case discussed with RN, Dr. Contreras, Dr. Watkins, and the patient's primary subassembler, Dr. Cheung with [facility]. Patient does report some shortness of breath and chest tightness. Medications: List reviewed. Code Status: Full. Physical Examination: Vital Signs: Temperature 97, heart rate 83, blood pressure 126/78, respirations 20, O2 94% on BiPAP 30% FiO2. General: Awake, alert, oriented x3. Elderly female, in some mild respiratory distress, obese, ill-appearing. CV: S1 and S2. Regular rate and rhythm. Peripheral pulses present. Respiratory: Moving air well bilaterally. No wheezing. Gastrointestinal: Abdomen is soft, nontender, nondistended. Positive bowel sounds. No guarding or rigidity. Extremities: No clubbing, cyanosis, or edema. Neurologic: Cranial nerves 2 through 12 intact grossly. No focal neurological deficit. Speech is normal. Skin: No rashes. Normal skin turgor. Laboratory Data: Sodium 143, potassium 4.3, chloride 113, CO2 24, BUN 23, creatinine 1.22, glucose 164, calcium 8.7, magnesium 1.9. Troponin 0.29, 0.19, 0.14. Triglycerides 123, cholesterol 139, LDL 62, HDL 52. Procalcitonin less than 0.05. TSH 0.45. WBC 8.8, H and H of 13.9 and 41.1, platelets 234, neutrophils 81%. Blood cultures and sputum cultures pending. Imaging Studies: CT angio chest shows large pulmonary emboli at the branch points of the right and left pulmonary arteries into the lobar branches. Additional segmental and subsegmental branch emboli. Saddle embolus is present as well. No pulmonary hemorrhage. Echocardiogram shows EF of 73%, paradoxical septal motion, dilated right atrium and ventricle, severe pulmonary hypertension. Paradoxical septal motion in the right ventricle. Extremity venous ultrasound shows no DVT. Renal ultrasound shows no hydronephrosis or suspicious renal mass. Assessment And Plan: A 68-year-old female with: 1. Acute respiratory distress. Patient was requiring supplemental secondary to acute pulmonary embolism and asthma exacerbation. Appreciate Pulmonology input. Patient uses CPAP at night for sleep apnea. 2. Acute pulmonary embolism. Patient has saddle embolism. We will switch over to therapeutic Lovenox. We will discuss with Pulmonology for need for thrombolytics and transfer to ICU. 3. Elevated troponin level, possible non-ST segment elevation myocardial infarction or acute coronary syndrome, likely related to pulmonary embolism. Continue with chest pain guidelines and therapeutic Lovenox. Case discussed with Dr. Contreras. Her EKG does show new septal infarct compared to EKG from May at [facility]. Previous records reviewed. 4. Acute asthma exacerbation. We will continue with nebulizer treatments and steroids. Patient will need adjustments to her inhalers upon discharge. 5. Essential hypertension, stable. 6. Hyperlipidemia. Continue Lipitor. 7. Chronic kidney disease stage 3. Patient is unaware of previous history of chronic kidney disease. Previous records indicate normal kidney function. Nephrology has been consulted. Currently, creatinine is normalized. We will continue with IV fluids, as the patient has received contrast. 8. Fibromyalgia, stable. 9. Obstructive sleep apnea. Continue CPAP at night. 10. Obesity, BMI of 31. DVT prophylaxis addressed. /JAYSHREE Voice ID: [id number] Report ID: [id number] [id number]
[2019-02-09 20:08] LABS: Protime INR 1.03
[2019-02-09] MEDS: ATORVASTATIN 10 MG TAB PO SCH (20:09)
[2019-02-09] MEDS: MONTELUKAST 10 MG TAB PO SCH (20:09)
[2019-02-09] MEDS: DULOXETINE 30 MG CAP PO SCH (20:09)
[2019-02-09] MEDS ORDERED: ENOXAPARIN 100 MG/ML SYR SQ SCH (21:00)
[2019-02-09] MEDS ORDERED: NA CHLORIDE 0.9% 100 ML ONE (21:47)
[2019-02-10 05:13] LABS: Absolute Lymphocytes (CBC) 3.7 K/uL (0.7-4.9); Basophils % 0.6 % (0-1.3); Hematocrit 40.2 % (36.0-45.0); Lymphocytes % 28.1 % (15.3-44.8); MPV 7.7 fL (7.6-11.3); RBC Red Blood Cell Count 4.47 M/uL (3.86-4.86)
[2019-02-10 05:29] LABS: Magnesium 1.8 mg/dL (1.8-2.4); Potassium 3.6 mmol/L (3.5-5.1)
[2019-02-10] MEDS ORDERED: POTASSIUM CL SA 10 MEQ TAB PO ONE (05:36)
[2019-02-10] MEDS ORDERED: MAGNESIUM SULFATE 1 gm IVPB 1 GM/100 ML BAG IV ONE ×2 (05:36→17:04)
[2019-02-10] MEDS: METOPROLOL TAR 25 MG TAB PO SCH ×2 (06:00→16:42)
[2019-02-10] MEDS: PANTOPRAZOLE 40MG TABLET PO SCH (06:34)
[2019-02-10] MEDS: ARFORMOTEROL TARTRATE 15 MCG/2 ML VIAL.NEB NEB SCH ×2 (08:00→20:25)
--- NOTE | 2019-02-10 08:11 | P.PN ---
Subjective Date of Service: 02/10/19 Primary Care Provider[facility] Cardiology-Dr. Acuña; Pulm- Dr. Joel Chief Complaint: Pulmonary embolism Subjective: Improving (Patient is doing well no new complaints status post t-PA) Review of Systems Unremarkable Physical Examination - Vital Signs Temperature: 97.5 F Blood Pressure: 134/86 Pulse: 55 Respirations: 16 Pulse Ox (%): 100 - Physical Exam General: Alert, Oriented x3 Neck: Supple Respiratory: Clear to auscultation bilaterally Cardiovascular: No edema, Regular rate/rhythm Assessment & Plan - Problems (Diagnosis) (1) Asthma exacerbation Current Visit: Yes Status: Acute Plan: Patient is 68 years of age with poorly controlled asthma on Advair admitted with worsening asthma no clinical evidence of sepsis she was in respiratory failure hypoxemia respiratory alkalosis chest x-ray hyperinflated apparently she had an acute deterioration since Friday patient's D-dimer is significantly elevated she is hypoxic agree with CT pulmonary angiogram if negative then the patient can be discharged home on Advair and prednisone 2D echocardiogram Qualifiers: Asthma severity: severe (2) Pulmonary embolism Current Visit: Yes Status: Acute Plan: Patient admitted with massive PE with right ventricular dilatation status post t -PA doing well [facility] discharge tomorrow on Xarelto or Eliquis as per recommendations follow up with 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
[2019-02-10] MEDS: ENOXAPARIN 100 MG/ML SYR SQ SCH ×2 (08:34→20:51)
--- NOTE | 2019-02-10 12:48 | PN ---
Date of Progress Note: 02/10/2019 Subjective: Patient is seen and examined. Chart reviewed and case discussed with RN and Dr. Ruben hanson. Patient states her breathing is better. Patient was given tPA last night for saddle embolism. Medications: List reviewed. Physical Examination: Vital Signs: Temperature 97.5, heart rate 55, blood pressure 134/86, respirations 16, O2 at 100% on 2 L via nasal cannula. General: Awake, alert and oriented x3. Elderly female, obese, not in any acute distress. CV: S1 and S2. Regular rate and rhythm. Peripheral pulses present. Respiratory: Moving air well bilaterally. No wheezing or stridor. No use of accessory muscles. Gas trointestinal: Abdomen is soft, nontender, nondistended. Positive bowel sounds. No guarding or rig idity. Extremities: No clubbing, cyanosis, or edema. Neurologic: Nonfocal. Cranial nerves 2 through 12 intact grossly. Speech is normal. Laboratory Data: Sodium 147, potassium 3.6, chloride 104, CO2 of 24, BUN 23, creatinine 1.09, glucos e 103, calcium 8.2, magnesium 1.8. WBC 13.2, H and H 13.5 and 40.2, platelets 213. Blood culture sh owed no growth to date. Urine culture, mixed benny. Sputum culture showing normal upper respiratory benny. Assessment And Plan: This 68-year-old female with: 1.Acute respiratory distress. The patient is still on 2 L via nasal cannula, likely secondary to PE and asthma exacerbation. The patient uses CPAP at night. 2.Acute pulmonary embolism with saddle embolism, status post tPA last night or transfer out of ICU. We will continue with Lovenox. We will switch to oral anticoagulant and discharge in a.m. 3.Elevated troponin level, possible acute coronary syndrome, likely related to pulmonary embolism. Appreciate Cardiology input. The patient did have some EKG changes from previous. No acute chest pa in. 4.Acute asthma exacerbation. We will continue with nebulizer treatments and steroids. 5.Essential hypertension, stable. 6.Mixed hyperlipidemia. Continue Lipitor. 7.Chronic kidney disease stage 3. Kidney function is normal. We will continue to monitor. Continu e IV fluids. Nephrology on board. 8.Fibromyalgia, stable. 9.Obstructive sleep apnea. Continue CPAP at night. 10.Obesity, BMI 31. Plan: Likely discharge in a.m. for lifelong anticoagulation. /JAYSHREE Voice ID: [id number] Report ID: [id number]
[2019-02-10] MEDS: CETIRIZINE HCL 5 MG TABLET PO SCH (15:11)
[2019-02-10] MEDS: IPRATROPIUM BROM 0.5MG/2.5ML NEB PRN (20:25)
[2019-02-10] MEDS: ALBUTEROL 2.5 MG/3 ML NEB SOL NEB PRN (20:25)
[2019-02-10] MEDS: MONTELUKAST 10 MG TAB PO SCH (20:52)
[2019-02-10] MEDS: DULOXETINE 30 MG CAP PO SCH (20:53)
[2019-02-10] MEDS: ATORVASTATIN 10 MG TAB PO SCH (20:53)
--- NOTE | 2019-02-10 22:57 | PN ---
Date of Progress Note: 02/10/2019 Subjective: The patient was admitted with acute kidney injury. The patient is feeling much better. The patient developed PE status post tPA, status post contrast yesterday. Physical Examination: Vital Signs: Blood pressure 139/69, pulse of 75. Chest: Clear to auscultation. Heart: S1, S2, regular. Abdomen: Soft, nontender. Extremities: No edema. Laboratory Data: H and H 13.5/40.2. Sodium 147, potassium 3.6, bicarb 24, BUN 23, creatinine 1, GFR of 50, calcium 8.2, magnesium 1.8. Current Medications: Include: Atorvastatin, Lovenox, gabapentin, Zofran, pantoprazole, IV fluid. Assessment And Plan: 1.Acute kidney injury secondary to prerenal, recovered, resolved. Patient just received contrast ye sterday. We will follow up kidney function in the next 24 hours for post contrast of 48 hours, and w e will follow up. 2.Hypokalemia, hypomagnesemia; we will supplement. 3.Hypertension, controlled, optimal. 4.Pulmonary embolism as by primary. ROSE/JAYSHREE Voice ID: [id number] Report ID: [id number]
[2019-02-11 04:28] LABS: Absolute Lymphocytes (CBC) 3.5 K/uL (0.7-4.9); MPV 7.6 fL (7.6-11.3); RBC Red Blood Cell Count 4.39 M/uL (3.86-4.86)
[2019-02-11 04:39] LABS: Magnesium 1.8 mg/dL (1.8-2.4); Potassium 4.3 mmol/L (3.5-5.1)
[2019-02-11] MEDS: PANTOPRAZOLE 40MG TABLET PO SCH (05:58)
[2019-02-11] MEDS ORDERED: MAGNESIUM SULFATE 1 gm IVPB 1 GM/100 ML BAG IV ONE (06:00)
[2019-02-11] MEDS: METOPROLOL TAR 25 MG TAB PO SCH (06:05)
[2019-02-11] MEDS: CETIRIZINE HCL 5 MG TABLET PO SCH (07:53)
[2019-02-11] MEDS: ENOXAPARIN 100 MG/ML SYR SQ SCH (07:53)
[2019-02-11] MEDS: IPRATROPIUM BROM 0.5MG/2.5ML NEB PRN (08:13)
[2019-02-11] MEDS: ALBUTEROL 2.5 MG/3 ML NEB SOL NEB PRN (08:13)
[2019-02-11] MEDS: ARFORMOTEROL TARTRATE 15 MCG/2 ML VIAL.NEB NEB SCH (08:13)
[2019-02-11 08:56] VITALS: BP 142/79; TEMP 97.6
[2019-02-11 09:00] VITALS: O2SAT 98
[2019-02-11] MEDS ORDERED: HOME MED 1 EA UNK (Cetirizine Hcl [Zyrtec] 10 MG) PO SCH (09:00)
--- NOTE | 2019-02-11 12:17 | P.PN ---
Subjective Date of Service: 02/11/19 Primary Care Provider: Dr. Segura([facility]); Cardiology-Dr. Acuña; Pulm- Dr. Joel Chief Complaint: Pulmonary embolism Subjective: Improving (Patient is doing well no new complaints) Review of Systems Unremarkable Physical Examination - Vital Signs Temperature: 97.6 F Blood Pressure: 142/79 Pulse: 53 Respirations: 15 Pulse Ox (%): 98 - Physical Exam General: Alert, Oriented x3 Respiratory: Clear to auscultation bilaterally Cardiovascular: No edema, Normal pulses Assessment & Plan - Problems (Diagnosis) (1) Asthma exacerbation Current Visit: Yes Status: Acute Plan: Continue with Advair Qualifiers: Asthma severity: severe (2) Pulmonary embolism Current Visit: Yes Status: Acute Plan: Patient admitted with massive pulmonary embolism status post t-PA discharge on Xarelto 15 mg twice a day for 3 weeks then 20 mg once a day patient will need lifelong anticoagulation therapy as informed patient to follow up with the torch straightener consider angulation workup and about 3 months vital signs stable oxygenation satisfactory Qualifiers: Acute cor pulmonale presence: with acute cor pulmonale
--- NOTE | 2019-02-12 19:01 | DS ---
Date of Discharge: 02/11/2019 Consultants: 1. Dr. Watkins with Pulmonology. 2. Dr. Contreras with Cardiology. 3. Dr. Millard. Procedures: TPA therapy. Admitting Diagnoses: 1. Shortness of breath. 2. Acute asthma exacerbation. 3. Hypoxia. 4. Elevated troponin level. 5. Essential hypertension. 6. Mixed hyperlipidemia. 7. Chronic kidney disease stage 4. 8. Pleuritic chest pain. 9. Fibromyalgia. 10. Obstructive sleep apnea, on CPAP. 11. Obesity, BMI 32. Discharge Diagnoses: 1. Acute respiratory distress with hypoxia, improved, secondary to pulmonary embolus. 2. Acute kidney injury, resolved. 3. Acute pulmonary embolism with saddle embolism, status post tPA. 4. Elevated troponin level likely due to pulmonary embolus. 5. Pleuritic chest pain secondary to pulmonary embolus. 6. Acute asthma exacerbation, resolved. 7. Essential hypertension, stable. 8. Mixed hyperlipidemia, on statin. 9. Per patient, no history of chronic kidney disease despite previous records. 10. Fibromyalgia, stable. 11. Obstructive sleep apnea, on CPAP. 12. Obesity, BMI 31. Hospital Course: The patient is a 68-year-old female with past medical history of asthma, sleep apnea, hypertension, history of tobacco use, hyperlipidemia, comes in with shortness of breath for several weeks. The patient was on doxycycline for bronchitis and prednisone. No improvement. Upon workup, she was found to have elevated D-dimer and elevated troponin level. The patient was admitted for further workup. She was seen by Cardiology and Pulmonology. Her blood cultures remained negative as did her urine and sputum cultures. Her kidney function was also elevated, however, improved with IV fluids. There was questionable history of chronic kidney disease from the records, however, per the patient, this was news to her. Doppler sonogram was done, which was negative for any DVT. Renal ultrasound was also done, which showed no hydronephrosis or renal mass. CT angio was done, which showed saddle embolus and significant pulmonary emboli. The patient was started on therapeutic Lovenox. She was transferred to the ICU and Dr. Watkins with Pulmonology administered tPA. Echocardiogram showed severe pulmonary hypertension with right ventricular systolic pressure of 64 mmHg. The patient's primary electronics technician apprentice, Dr. Acuña was contacted. EKG from previous was also reviewed from her previous records. Cardiology did not recommend any further intervention at this time. The patient to follow up with her primary electronics technician apprentice at [facility] including Hematology for hypercoagulable workup. The patient likely has some genetic disorder predisposing her to clots. The patient's sister also has DVTs in the lower extremity, and per the patient, her sister did not respond to Coumadin. The patient was counseled regarding Xarelto , monitor for signs of bleeding. The patient will be on 15 mg twice a day for 3 weeks, then switch over to 20 mg daily for life. The patient was also seen by Nephrology. Kidney function had corrected. The patient was then cleared for discharge from it architecture consultant's standpoint. She was saturating well on room air. She was no longer requiring supplemental oxygen. She was then cleared for discharge, sent home in a stable condition. Followup: Follow up with primary care physician in 2 to 3 days; follow up with pre sales technical consultant, Dr. Watkins in 2 weeks; return to ER for worsening condition; follow up with primary electronics technician apprentice and forensic sergeant at [facility] in 2 weeks. Diet: Heart healthy. Activity: As tolerated. Physical Examination: General: Awake, alert, oriented, elderly female, obese. CV: S1, S2. Respiratory: Moving air well bilaterally. Abdomen: Soft, nontender, nondistended. Positive bowel sounds. Extremities: No clubbing, cyanosis, edema. Neurologic: Nonfocal. Total time spent discharging patient was 32 minutes. IDRIS Voice ID: [id number] Report ID: [id number] JOSELYN
--- NOTE | 2019-02-12 19:03 | PN ---
Date of Progress Note: 02/11/2019 Subjective: Patient was admitted with acute kidney injury, found to have PE. Patient started on ant icoagulation after thrombolysis. Physical Examination: Vital Signs: When I saw the patient, blood pressure 142/79, pulse of 53, afebrile. Chest: Clear to auscultation. Heart: S1, S2. Regular. Abdomen: Soft, nontender. Extremities: No edema. Current Medications: Include atorvastatin, Lovenox, gabapentin, Zofran, pantoprazole. Laboratory Data: H and H 13.6/39. Sodium of 145, potassium 4.3, bicarb 24, BUN 16, creatinine 0.9, magnesium 1.8, calcium 8.3. Renal ultrasound; normal size kidney 9.4 x 10.2. Assessment And Plan: 1.Acute kidney injury secondary to prerenal, recovered, resolved. 2.Hypertension, controlled optimal. Continue current medication. 3.Hypomagnesemia. We will supplement. 4.Pulmonary embolism. Continue current treatment. Follow up with the primary. Patient cleared from the Renal standpoint for discharge planning. Follow up in the office in 2 to 3 weeks. GARDENIA Voice ID: [id number] Report ID: [id number]
== END 2019-02-11 12:24 | disposition home health service (06) | DRG 176 ==
LOC: ER 20:22 → ERHOLD 23:31 → 2ND 23:53 → 3RD-ICU 02-09 17:00 → 4TH 02-10 12:35
PROVIDERS: ADMIT Family Medicine; ATTEND Family Medicine
PROC: 5A09357 Assistance with Respiratory Ventilation, Less than 24 Consecutive Hours, Continuous Positive Airway Pressure (ICD-10-PCS; principal; 2019-02-09)
DX: I26.92 Saddle embolus of pulmonary artery without acute cor pulmonale (principal); J45.901 Unspecified asthma with (acute) exacerbation; N17.9 Acute kidney failure, unspecified; R06.03 Acute respiratory distress; R09.02 Hypoxemia; M79.7 Fibromyalgia; G47.33 Obstructive sleep apnea (adult) (pediatric); E66.9 Obesity, unspecified; Z68.32 Body mass index [BMI] 32.0-32.9, adult; E78.2 Mixed hyperlipidemia; Z87.891 Personal history of nicotine dependence; E87.6 Hypokalemia; R79.89 Other specified abnormal findings of blood chemistry; Z88.0 Allergy status to penicillin
CPT/HCPCS: 36415; 71046; 71275; 76770; 80048; 80061; 81003; 81015; 82550; 82553; 82570; 82805; 83735; 83880; 84145; 84156; 84439; 84443; 84484; 85025; 85379; 85610; 85730; 87040; 87070; 87086; 87088; 87205; 93005; 93306; 93970; 94640; 94660; 96372; 99285; J1650; J2997; J3475; J7030; J7512; J7605; Q9967

== ENCOUNTER 2021-01-17 17:23 | Emergency (ER) | payer OTHER, BC ==
--- OUTSIDE RECORDS SUMMARY | 2021-01-17 17:25 | XMS REPORT | Continuity of Care Document ---
:1950 Author Organization [facility] t Address [address] [place] [address] Care Team Providers Name Role Phone INJ Attending Clinician Unavailable ABIMAEL, E Attending Clinician Unavailable Payers Payer Name Policy Type Policy Number Effective Date Expiration Date S juwan MEDICARE-PART B 5 [id number] 2014 00:00:00 BCBS 2 [id number] 2017 00:00:00 Problems This patient has no known problems. Allergies, Adverse Reactions, Alerts This patient has no known allergies or adverse reactions. Medications This patient has no known medications. Procedures This patient has no known procedures. Encounters Start End Encounter Admission Attending Care Care Encounter Source Date/Time Date/Time Type Type Clinicians Facility Department ID 2021-02-08 2021-02-08 Outpatient INJOSCAR [id number] Oscar 13:45:00 13:45:00 HERNESTO healy 2021-01-22 2021-01-22 Outpatient ABIMAELOSCAR [id number] Oscar 14:40:00 14:40:00 EKTA gil 2021-01-11 2021-01-11 Outpatient INJOSCAR [id number] Oscar 14:30:00 14:30:00 HERNESTO healy 2020-12-14 2020-12-14 Outpatient INJOSCAR [id number] Oscar 13:30:00 13:30:00 HERNESTO healy 2020-11-28 2020-11-28 Outpatient ABIMAELOSCAR [id number] Oscar 00:00:00 00:00:00 EKTA gil 2020-11-16 2020-11-16 Outpatient INJ, OSCAR MOORE [id number] Oscar 14:15:00 14:15:00 HERNESTO healy Results This patient has no known results.
--- NOTE | 2021-01-17 19:47 | RAD REPORT ---
EXAM DESCRIPTION: RAD - Wrist Right 3 View - 01/17/2021 7:25 pm CLINICAL HISTORY: PAIN COMPARISON: <Comparisons> FINDINGS: Impacted distal radial fracture involving the metaphysis. No definite intra-articular exte nsion. No other fractures seen. Slight dorsal tilt of the distal radius. There is a longitudinal comp onent with displaced fragment posteriorly. IMPRESSION: Impacted distal radial fracture.
--- NOTE | 2021-01-17 20:44 | ER ---
Nurse's Notes [facility] Name: Selene Oneal Age: 70 yrs Sex: Female : 1950 Arrival Date: 01/17/2021 Time: 17:24 Bed DX3 Private MD: Tiffani Tabor Diagnosis: Fracture of shaft of radius-Impacted distal radius fracture Presentation: 01/17 17:35 Chief complaint: Patient states: i was walking in the back yard and of course the grass tw2 was real high. so of course i stepped in a hole and fell. i landed on my RIGHT wrist about 45 minutes ago. i hit my left knee but it doesn't bother me. i felt my RIGHT wrist make a cracking noise. Coronavirus screen: At this time, the client does not indicate any symptoms associated with coronavirus-19. Ebola Screen: Patient denies travel to an Ebola-affected area in the 21 days before illness onset. Initial Sepsis Screen: Does the patient meet any 2 criteria? No. Patient's initial sepsis screen is negative. Does the patient have a suspected source of infection? No. Patient's initial sepsis screen is negative. Risk Assessment: Do you want to hurt yourself or someone else? Patient reports no desire to harm self or others. Onset of symptoms was January 17, 2021. 17:35 Method Of Arrival: Ambulatory tw2 17:41 Acuity: RUT 4 tw2 Triage Assessment: 17:41 General: Appears in no apparent distress. Behavior is calm, cooperative, appropriate tw2 for age. Pain: Complains of pain in RIGHT wrist. Musculoskeletal: Swelling present in right wrist. Injury Description: from fall. Historical: - Allergies: 17:37 Doxycycline (stomach pain); tw2 17:37 mycins; tw2 17:37 PENICILLINS; tw2 17:37 Clarithromycin; tw2 - Home Meds: 17:37 Zyrtec 10 mg Oral tab 1 tab once daily [Active]; Vitamin D3 Oral daily [Active]; tw2 tizanidine 4 mg Oral cap 1 cap as needed [Active]; simvastatin 20 mg Oral tab 1 tab at bedtime [Active]; prednisone 20 mg Oral tab once daily [Active]; omalizumab subcutaneous every 4 wks [Active]; montelukast 10 mg Oral tab 1 tab once daily [Active]; gabapentin 100 mg Oral cap 1 cap as needed [Active]; fluticasone-salmeterol inhalation 2 times per day [Active]; famotidine 20 mg Oral tab 1 tab every 12 hours [Active]; duloxetine 30 mg Oral cpDR 1 cap 2 times per day [Active]; coq10 daily [Active]; Betamethasone Valerate Topical as needed [Active]; valsartan 40 mg oral tab 2 tabs once daily [Active]; Albuterol Inhl [Active]; Lovenox Sub-Q [Active]; - PMHx: 17:37 Asthma; Bronchitis; fibrobyalgia; Hypertension; Osteoporosis; Sleep Apnea; tw2 - Immunization history:: Client reports receiving the 2nd dose of the Covid vaccine. - Social history:: Smoking status: Patient denies any tobacco usage or history of. Smoking status: Patient/guardian denies using tobacco, the patient reports quitting approximately 30 years ago. - Family history:: not pertinent. - Hospitalizations: : No recent hospitalization is reported. Screenin:22 Abuse screen: Denies threats or abuse. Denies injuries from another. Nutritional kg screening: No deficits noted. Tuberculosis screening: No symptoms or risk factors identified. Fall Risk Fall in past 12 months (25 points). No IV (0 pts). Ambulatory Aid- None/Bed Rest/Nurse Assist (0 pts). Gait- Normal/Bed Rest/Wheelchair (0 pts) Mental Status- Oriented to own ability (0 pts). Total Gruber Fall Scale indicates No Risk (0-24 pts). Assessment: 21:22 Pain: Complains of pain in right arm. Musculoskeletal: Swelling. kg Vital Signs: 17:41 BP 107 / 62; Pulse 78; Resp 17; Temp 98(TE); Pulse Ox 99% on R/A; tw2 21:22 BP 142 / 73; Pulse 69; Resp 20; Pulse Ox 97% on R/A; kg ED Course: 17:24 Patient arrived in ED. as 17:24 Tiffani Tabor MD is Private Physician. as 17:34 Arm band placed on. tw2 17:42 Triage completed. tw2 19:25 Wrist Right 3 View XRAY In Process Unspecified. EDMS 19:35 Chris Gonzalez MD is Attending Physician. rn 20:18 Tootie Jo, RN is Primary Nurse. kg 20:42 Byron Oakes MD is Referral Physician. rn 20:57 Orthoglass splint: Sugar tong splint applied on right arm. Sling applied to right arm. oe 21:23 Patient has correct armband on for positive identification. kg 21:23 No provider procedures requiring assistance completed. Patient did not have IV access kg during this emergency room visit. Administered Medications: No medications were administered Outcome: 20:43 Discharge ordered by MD. rn 21:23 Discharged to home ambulatory. kg 21:23 Condition: good 21:23 Discharge instructions given to patient, Instructed on discharge instructions, follow up and referral plans. Demonstrated understanding of instructions, follow-up care, splint care. 21:23 Patient left the ED. kg Signatures: Dispatcher [employer] EDMS Juanita Stevens Roman, MD MD rn Wise, Tara, RN RN tw2 Stevo Kramer oe Tootie Jo, RN RN kg
--- NOTE | 2021-01-17 20:44 | EDPHYS ---
Physician Documentation [facility] Name: Selene Oneal Age: 70 yrs Sex: Female : 1950 Arrival Date: 01/17/2021 Time: 17:24 Bed DX3 Private MD: Tiffani Tabor ED Physician Chris Gonzalez HPI: 01/17 20:09 This 70 yrs old Female presents to ER via Ambulatory with complaints of Wrist rn Injury. 20:09 The patient or guardian reports injury, pain. The complaints affect the right wrist rn diffusely. Context: The problem was sustained at home, resulted from a fall. Onset: The symptoms/episode began/occurred just prior to arrival. Modifying factors: The symptoms are alleviated by nothing, the symptoms are aggravated by movement. Associated signs and symptoms: Pertinent negatives: cyanosis distally, decreased sensation distally, numbness distally, tingling distally. The patient has not experienced similar symptoms in the past. The patient has not recently seen a physician. Patient reports accidental fall and backyard, fell and injured right wrist. No other injuries.. Historical: - Allergies: 17:37 Doxycycline (stomach pain); tw2 17:37 mycins; tw2 17:37 PENICILLINS; tw2 17:37 Clarithromycin; tw2 - Home Meds: 17:37 Zyrtec 10 mg Oral tab 1 tab once daily [Active]; Vitamin D3 Oral daily [Active]; tw2 tizanidine 4 mg Oral cap 1 cap as needed [Active]; simvastatin 20 mg Oral tab 1 tab at bedtime [Active]; prednisone 20 mg Oral tab once daily [Active]; omalizumab subcutaneous every 4 wks [Active]; montelukast 10 mg Oral tab 1 tab once daily [Active]; gabapentin 100 mg Oral cap 1 cap as needed [Active]; fluticasone-salmeterol inhalation 2 times per day [Active]; famotidine 20 mg Oral tab 1 tab every 12 hours [Active]; duloxetine 30 mg Oral cpDR 1 cap 2 times per day [Active]; coq10 daily [Active]; Betamethasone Valerate Topical as needed [Active]; valsartan 40 mg oral tab 2 tabs once daily [Active]; Albuterol Inhl [Active]; Lovenox Sub-Q [Active]; - PMHx: 17:37 Asthma; Bronchitis; fibrobyalgia; Hypertension; Osteoporosis; Sleep Apnea; tw2 - Immunization history:: Client reports receiving the 2nd dose of the Covid vaccine. - Social history:: Smoking status: Patient denies any tobacco usage or history of. Smoking status: Patient/guardian denies using tobacco, the patient reports quitting approximately 30 years ago. - Family history:: not pertinent. - Hospitalizations: : No recent hospitalization is reported. ROS: 20:09 Constitutional: Negative for fever, chills, and weight loss, MS/Extremity: Positive for rn injury and pain to right wrist Skin: Negative for injury, rash, and discoloration, Neuro: Negative for weakness, numbness, tingling Exam: 20:09 Constitutional: This is a well developed, well nourished patient who is awake, alert, rn and in no acute distress. Skin: Warm, dry with normal turgor. Normal color with no rashes, no lesions, and no evidence of cellulitis. MS/ Extremity: Pulses equal, no cyanosis. Neurovascular intact. Mild swelling over distal radius, no open wounds or punctures. Decent range of motion with minimal pain. No cyanosis. Forearm compartments nice and soft. Vital Signs: 17:41 BP 107 / 62; Pulse 78; Resp 17; Temp 98(TE); Pulse Ox 99% on R/A; tw2 21:22 BP 142 / 73; Pulse 69; Resp 20; Pulse Ox 97% on R/A; kg Procedures: 20:41 Splinting: Splint applied to right arm using Orthoglass splint, applied by myself. rn Examined by me, post splint application: neurovascular intact, 2+ distal pulses palpable, brisk capillary refill noted, Patient tolerated well. MDM: 19:35 Patient medically screened. rn 20:41 Differential diagnosis: closed fracture, contusion. Data reviewed: vital signs, nurses rn notes, radiologic studies, plain films, and as a result, I will discharge patient. Test interpretation: by ED physician or midlevel provider: plain radiologic studies, X-ray right wrist shows impacted distal radius fracture. Counseling: I had a detailed discussion with the patient and/or guardian regarding: the historical points, exam findings, and any diagnostic results supporting the discharge/admit diagnosis, radiology results, the need for outpatient follow up, to return to the emergency department if symptoms worsen or persist or if there are any questions or concerns that arise at home. Response to treatment: the patient's symptoms have mildly improved after treatment, and as a result, I will discharge patient. Special discussion: I discussed with the patient/guardian in detail that at this point there is no indication for admission to the hospital. It is understood, however, that if the symptoms persist or worsen the patient needs to return immediately for re-evaluation. Based on the history and exam findings, there is no indication for further emergent testing or inpatient evaluation. I discussed with the patient/guardian the need to see the orthopedic surgeon for further evaluation of the symptoms. 01/17 18:24 Order name: Wrist Right 3 View XRAY; Complete Time: 19:53 em1 01/17 19:54 Order name: Splint - Sugar Tong - Forearm: right wrist; Complete Time: 21:22 rn Administered Medications: No medications were administered Disposition Summary: 01/17/21 20:43 Discharge Ordered Location: Home rn Problem: new rn Symptoms: have improved rn Condition: Stable rn Diagnosis - Fracture of shaft of radius - Impacted distal radius fracture rn Followup: rn - With: Byron Oakes MD - When: 5 - 6 days - Reason: Recheck today's complaints, Re-evaluation by your physician Discharge Instructions: - Discharge Summary Sheet rn - Wrist Fracture Treated With Immobilization rn - Wrist Splint, Adult rn Forms: - Medication Reconciliation Form rn - Thank You Letter rn - Antibiotic international broadcast music librarian - Prescription Opioid Use rn Signatures: Dispatcher [employer] Chris Lay MD MD rn Wise, Tara, RN RN tw2
[2021-01-17 21:34] VITALS: TEMP 98
[2021-01-17 21:35] VITALS: BP 142/73; O2SAT 97
== END 2021-01-17 21:23 | disposition home or self-care (01) ==
LOC: ER 17:23
PROC: 0PSHXZZ Reposition Right Radius, External Approach (ICD-10-PCS; principal; 2021-01-17)
DX: S52.301A Unspecified fracture of shaft of right radius, initial encounter for closed fracture (principal); S52.501A Unspecified fracture of the lower end of right radius, initial encounter for closed fracture; W01.0XXA Fall on same level from slipping, tripping and stumbling without subsequent striking against object, initial encounter; Y93.89 Activity, other specified; Y92.017 Garden or yard in single-family (private) house as the place of occurrence of the external cause; Z88.0 Allergy status to penicillin; Z88.3 Allergy status to other anti-infective agents; I10 Essential (primary) hypertension; J45.909 Unspecified asthma, uncomplicated; J40 Bronchitis, not specified as acute or chronic; M81.0 Age-related osteoporosis without current pathological fracture; G47.30 Sleep apnea, unspecified
CPT/HCPCS: 99283

== ENCOUNTER 2024-05-29 11:04 | Emergency (ER) | payer OTHER, BC ==
--- OUTSIDE RECORDS SUMMARY | 2024-05-29 11:10 | XMS REPORT | Continuity of Care Document ---
Author Name Unknown Address [address] [facility] [address] [place] [address] [facility] Address [address] [facility] [address] [place] [address] Care Team Providers Care Family Practice Nurse Practitioner Name Role Phone iSlvia Kaminski Primary Care Physician [phone] SILVIA TORRE Attending Clinician Unavailable Tiffani Tabor Attending Clinician Unavailable JENNY AMADOR Attending Clinician Unavailable MD VICKY Attending Clinician UnavailMarissa Fragoso Attending Clinician [phone] KONG SIDDIQUI Attending Clinician Unavail able KONG SIDDIQUI Attending Clinician Unavail Kong Lane MD Attending Clinician [phone] BENITEZ NEWTON Attending Clinician Unavailable LAMONTE REYNA Attending Clinician Unavailable ANJEL SHELTON Attending Clinician Unava ilHERNESTO Vásquez Attending Clinician Unavailable BENITEZ SHETH Attending Clinician Unav keren RAMIREZ Attending Clinician Unavailable NIKITA JACOBO Attending Clinician UnavailNikita Valle MD Attending Clinician [phone] Edson Poe MD Attending Clinician [phone] EDSON POE Attending Clinician Unavailable FLOOR, LAB HEM-ONC 2ND Attending Clinician Unava ilLamonte Senior MD R Attending Clinician LAB47 Attending Clinician Unavailable EKTA VARGHESE Attending Clinician Unavailable HERNESTO OLSON Attending Clinic tricia Unavailable Payers Payer Name Policy Type Policy Number Effective Date Expirati on Date Source MEDICARE-PART B 5 [id number] 2014 00:00:00 BCBS 2 [id number] 2017 00:00:00 Problems Condition Name Condition Details Condition Category Status Onset Date Resolution Date Last Treatment Date Treating Clinician Comments Source Screen for colon cancer Screen for colon cancer Disease Active 01-11 00:00: 00 Lavonne John Acute respirator y failure with hypoxia Acute respirator y failure with hypoxia Disease Active 2018-05 00:00: 00 Lavonne John Obesity (BMI 30-39.9) Obesity (BMI 30-39.9) Disease Active 01-28 00:00: 00 Lavonne John Polycythem ia Polycythem ia Disease Active 07-02 00:00: 00 Lavonne John Stage 3 chronic kidney disease Stage 3 chronic kidney disease Disease Active 2017-05 00:00: 00 Lavonne John Prediabete s Prediabete s Disease Active 2017-05 00:00: 00 Lavonne John Diverticul osis of large intestine without hemorrhage Diverticul osis of large intestine without hemorrhage Disease Active 2017-05 00:00: 00 Lavonne John Multiple thyroid nodules Multiple thyroid nodules Disease Active 2017-05 00:00: 00 Lavonne John DDD (degenerat reynaldo disc disease), cervical DDD (degenerat reynaldo disc disease), cervical Disease Active 2017-05 00:00: 00 Lavonne John Chronic pansinusit is Chronic pansinusit is Disease Active 2017-05 00:00: 00 Lavonne John Pulmonary arterial hypertensi on Pulmonary arterial hypertensi on Disease Active 12-30 00:00: 00 Lavonne John Essential hypertensi on, benign Essential hypertensi on, benign Disease Active 2010-05 00:00: 00 Lavonne John Mixed hyperlipid emia Mixed hyperlipid emia Disease Active 2010-05 00:00: 00 Lavonne John JOHNNIE (obstructi ve sleep apnea) JOHNNIE (obstructi ve sleep apnea) Disease Active 07-09 00:00: 00 Overview: Formattin g of this note might be different from the original. HMSD Wt. 192 lbs. AHI 4.0 RDI 7.6 REM AHI 18.3 REM RDI 20 O2 78% CPAP 6 cm. AHI 0 RDI 0.6 O2 94%. TXC 2016 - Wt. 193 lbs. AHI 18.8 O2 79%. Lavonne Guadarramabreannasalty Fibromyalg ia Fibromyalg ia Disease Active 2009-05 0 00:00: 00 Lavonne Dora Rheumatism , unspecifie d and fibrositis Rheumatism , unspecifie d and fibrositis Disease Active 2008-05 00:00: 00 Overview: Formattin g of this note might be different from the original. ICD-10 Lavonne Guadarramaeric GERD (gastroeso phageal reflux disease) GERD (gastroeso phageal reflux disease) Disease Active 12-19 00:00: 00 Lavonne John Osteoporos is Osteoporos is Disease Active Lavonne John Seasonal allergies Seasonal allergies Disease Active Lavonne John Ex-cigaret te smoker Ex-cigaret te smoker Disease Active Overview: Formattin g of this note might be different from the original. 20 pack yr smoking. Lavonne John Asthma Asthma Disease Active Lavonne John Allergies, Adverse Reactions, Alerts Allergy Name Allergy Type Status Severity Reaction(s) Onset Date Inactive Date Treating Clinician Comments Source Doxycycl ine Propensi ty to adverse reaction s to drug Active 05-26 00:00: 00 Abdominal painAsthm a Lavonne John Doxycycl ine Propensi ty to adverse reaction s Active Nausea and/or Vomiting 05-26 00:00: 00 Abdominal pain Asthma [facility] DOXYCYCL INE DRUG INGREDI Active N/V 05-26 00:00: 00 [facility] Clindamy xochitl Propensi ty to adverse reaction s Active Other - See comments 09-07 00:00: 00 GI issues [facility] CLINDAMY XOCHITL DRUG INGREDI Active Other-Cmnt 09-07 00:00: 00 [facility] Erythrom ycin Propensi ty to adverse reaction s Active Rash 10-29 00:00: 00 [facility] ERYTHROM YCIN DRUG Active Rash 10-29 00:00: 00 [facility] Penicill ins Drug Allergy Active Rash 08-25 00:00: 00 Lavonne John Penicill ins Drug Allergy Active Rash 08-25 00:00: 00 [facility] PENICILL INS Drug Class Active High Rash 08-25 00:00: 00 [facility] Social History Social Habit Start Date Stop Date Quantity Comments Source History of tobacco use Cigarette Smoker [facility] Sexual orientation General acute hospital History of Social function 2024-03-19 00:00:00 2024-03-19 00:00:00 [facility] Tobacco use and exposure 2024-01-20 00:00:00 2024-01-20 00:00:00 Smokeless tobacco non-user [facility] Alcohol intake 2021-08-13 00:00:00 2021-08-13 00:00:00 Current non-drinker of alcohol (finding) Lavonne John Tobacco Comment 2007-10-30 00:00:00 2007-10-30 00:00:00 quit 1979 Lavonne John Sex assigned at 1950 00:00:00 1950 00:00:00 [facility] Smoking Status Start Date Stop Date Source Ex-smoker 2024-01-20 00:00:00 2024-01-20 00:00:00 [facility] Medications Ordered Medication Name Filled Medication Name Start Date Stop Date Current Medication? Ordering Clinician Indication Dosage Frequency Signature (SIG) Comments Components Source donepeziL (ARICEPT) 5 mg tablet 2023-05 00:00: 00 Yes [id number] 5mg Take 1 tablet by mouth at bedtime. [facility] acetaminoph en-codeine 300-15 mg tablet 01-19 12:19: 05 Yes 1{tbl} Take 1 tablet by mouth as needed. [facility] albuterol 2.5 mg /3 mL (0.083 %) nebulizer solution 01-19 12:19: 05 Yes [facility] albuterol 90 mcg/actuati on inhaler 01-19 12:19: 05 Yes [facility] ALPRAZolam 0.5 mg tablet 01-19 12:19: 05 Yes TAKE 1 TABLET BY MOUTH TWICE DAILY NEEDED [facility] fluconazole 100 mg tablet 01-19 12:19: 05 Yes 100mg Take 1 tablet by mouth in the morning. [facility] Fluticasone Propionate (FLOVENT DISKUS) 250 mcg/actuati on inhalation disk 01-19 12:19: 05 Yes INHALE 1 PUFF BY MOUTH TWICE DAILY [facility] NEXLIZET 180-10 mg Tab 01-18 00:00: 00 Yes Take 1 tablet every day by oral route. [facility] Cetirizine HCl (ZYRTEC) 10 MG OR TABS 08-13 14:59: 38 Yes 1 TABLET DAILY Lavonne John Cholecalcif josephine (VITAMIN D3) 2000 UNIT OR CAPS 08-13 14:59: 38 Yes 1{capsu le} Take 1 capsule by mouth daily Lavonne John Coenzyme Q10 (COQ10 OR) 08-13 14:59: 38 Yes Take by mouth 1 daily Lavonne John Cetirizine HCl (ZYRTEC) 10 MG OR TABS 07-19 13:42: 07 Yes 1 TABLET DAILY Lavonne John Cholecalcif josephine (VITAMIN D3) 2000 UNIT OR CAPS 07-19 13:42: 07 Yes 1{capsu le} Take 1 capsule by mouth daily Lavonne Astudilloold Coenzyme Q10 (COQ10 OR) 07-19 13:42: 07 Yes Take by mouth 1 daily Lavonne John predniSONE 20 MG oral tablet 07-19 00:00: 00 Yes 2 tab a day for 5 days followed by 1 a day for 5 days. Lavonne John Cetirizine HCl (ZYRTEC) 10 MG OR TABS 07-10 14:45: 42 Yes 1 TABLET DAILY Lavonne John Cholecalcif josephine (VITAMIN D3) 2000 UNIT OR CAPS 07-10 14:45: 42 Yes 1{capsu le} Take 1 capsule by mouth daily Lavonne John Coenzyme Q10 (COQ10 OR) 3 14:45: 42 Yes Take by mouth 1 daily Lavonne John Ondansetron (ZOFRAN) 4 MG oral TABLET DISPERSIBLE 2-11 00:00: 00 Yes Lavonne John Duloxetine HCl [address] Particles 1-05 00:00: 00 Yes TAKE 1 CAPSULE BY MOUTH 1 ONCE DAILY Lavonne John Acetaminoph en-Codeine #3 300-30 MG oral Tablet 2020-05 2 00:00: 00 Yes 1{tbl} Take 1 tablet by mouth every 4 to 6 hours as needed for pain Lavonne John Valsartan 80 MG oral Tablet 2020-05 00:00: 00 Yes 80mg Take 1 tablet (80 mg total) by mouth daily Lavonne John EPINEPHrine 0.3 MG/0.3 ML IJ SOAJ 2020-05 0 00:00: 00 Yes .3mg Inject 0.3 mL (0.3 mg total) as directed as needed for anaphylaxi s 1 time only Lavonne John Cetirizine HCl (ZYRTEC) 10 MG OR TABS 02-08 13:28: 17 Yes 1 TABLET DAILY Lavonne John Cholecalcif josephine (VITAMIN D3) 2000 UNIT OR CAPS 02-08 13:28: 17 Yes 1{capsu le} Take 1 capsule by mouth daily Lavonne John Coenzyme Q10 (COQ10 OR) 02-08 13:28: 17 Yes Take by mouth 1 daily Lavonne John Simvastatin 20 MG oral Tablet 7- 00:00: 00 Yes TAKE 1 TABLET AT BEDTIME Lavonne John Omalizumab (XOLAIR) subcutaneou s injection 300 mg 3 20:45: 00 Yes [id number] 300mg Lavonne John Fluticasone -Salmeterol (Advair HFA) 230-21 MCG/ACT inhalation Aerosol 07-17 00:00: 00 Yes 2{puff} Inhale 2 puffs into the lungs 2 times daily Lavonne John Montelukast (SINGULAIR) 10 MG oral Tablet tablet 07-17 00:00: 00 Yes 10mg Take 1 tablet (10 mg total) by mouth daily Lavonne John Albuterol HFA (PROAIR HFA) 108 (90 Base) MCG/ACT IN AERS 07-17 00:00: 00 Yes 2 puffs as needed up to 3 times daily Lavonne John Albuterol (PROVENTIL) (2.5 MG/3ML) 0.083% inhalation Inhalant Solution 07-17 00:00: 00 Yes 2.5mg Q.25D Take 2.5 mg by nebulizati on 4 times daily as needed for wheezing Lavonne John Omalizumab (Xolair) 150 MG subcutaneou s subcutaneou s injection 07-17 00:00: 00 Yes [id number] 375mg Inject 375 mg into the skin every 14 days Lavonne John Enoxaparin (Lovenox) 100 MG/ML subcutaneou s Solution 2019-05 00:00: 00 Yes 90mg Inject 0.9 mL (90 mg total) into the skin 2 times daily Lavonne John Valsartan 80 MG oral Tab 2019-05 1-18 00:00: 00 Yes 80mg Take 1 tablet (80 mg total) by mouth daily Lavonne John Tizanidine HCl 4 MG oral Tab 2019-05 0 00:00: 00 Yes [id number] 4mg [id number] 3D Take 1 tablet (4 mg total) by mouth every 8 hours as needed for muscle spasms Lavonne John predniSONE 20 MG oral tablet 2019-05 0-09 00:00: 00 Yes PATIENT WILL TAKE 1 TABLET A DAY FOR 5 DAYS FOR A FLARE UP OF HER ASTHMA. Lavonne John Duloxetine HCl [address] Particles 2 00:00: 00 Yes TAKE 1 CAPSULE BY MOUTH EVERY DAY Lavonne John Respiratory Therapy Supplies (ONE FLOW SPIROMETER) does not apply Device 07-27 00:00: 00 Yes Incentive Spirometer . Use as directed by physician. Lavonne John Nystatin (NYSTATIN) [id number] UNIT/ML mouth/throa t Suspension 2017-05 00:00: 00 02-08 00:00 :00 No [id number] Take 5 mL by mouth 4 times daily Lavonne John Nystatin [id number] UNIT/GM apply externally Ointment 2017-05 00:00: 00 Yes [id number] Apply BID to affected areas beneath breasts x 3-4 weeks for yeast/sushil us Lavonne John Betamethaso ne Dipropionat e 0.05 % apply externally Lotion 2017-05 00:00: 00 Yes [id number] Apply BID to rash of scalp prn. Not for face, armpits, groin or breasts Lavonne John Famotidine (PEPCID) 20 MG oral Tab 12-30 00:00: 00 Yes 20mg Take 1 tablet by mouth 2 times daily Lavonne John Respiratory Therapy Supplies (NEBULIZER/ TUBING/MOUT HPIECE) does not apply Kit 02-07 00:00: 00 Yes Please supply patient with a new nebulizer machine, tubing and mouth piece kit. Patient needs refills on the tubing and mouth piece. Lavonne John Immunizations Ordered Immunization Name Filled Immunization Name Date Status Comments Source Influenza, adjuvanted, trivalent, PF (FLUAD) 2024-03-19 00:00:00 Completed Covid-19 Vaccine (Moderna), Mrna-lnp, Richard Protein, Pf, 100 Mcg/0.5ml,IM 2021-02-08 00:00:00 Completed Lavonne John Covid-19 Vaccine Moderna (Spikevax), Mrna-lnp, Richard Protein, Pf 2021-02-08 00:00:00 Completed Lavonne John Covid-19 Vaccine Moderna (Spikevax), Mrna-lnp, Richard Protein, Pf 2021-02-08 00:00:00 Completed Lavonne John Covid-19 Vaccine Moderna (Spikevax), Mrna-lnp, Richard Protein, Pf 2021-02-08 00:00:00 Completed Lavonne John Influenza Virus Vaccine, Quadrivalent, High Dose, Age 65 And Up 2021-01-11 00:00:00 Completed Lavonne Sebreannaold Influenza Virus Vaccine, Quadrivalent, High Dose, Age 65 And Up 2021-01-11 00:00:00 Completed Lavonne Sebreannaold Influenza Virus Vaccine, Quadrivalent, High Dose, Age 65 And Up 2021-01-11 00:00:00 Completed Lavonne Sebreannaold Influenza Virus Vaccine, Quadrivalent, High Dose, Age 65 And Up 2021-01-11 00:00:00 Completed Lavonne John Covid-19 Vaccine (Moderna), Mrna-lnp, Richard Protein, Pf, 100 Mcg/0.5ml,IM 2020-07-10 00:00:00 Completed Lavonne John Covid-19 Vaccine Moderna (Spikevax), Mrna-lnp, Richard Protein, Pf 2020-07-10 00:00:00 Completed Lavonne John Covid-19 Vaccine Moderna (Spikevax), Mrna-lnp, Richard Protein, Pf 2020-07-10 00:00:00 Completed Lavonne John Covid-19 Vaccine Moderna (Spikevax), Mrna-lnp, Richard Protein, Pf 2020-07-10 00:00:00 Completed Lavonne John Covid-19 Vaccine (Moderna), Mrna-lnp, Richard Protein, Pf, 100 Mcg/0.5ml,IM 2020-05-26 00:00:00 Completed Lavonne John Covid-19 Vaccine Moderna (Spikevax), Mrna-lnp, Richard Protein, Pf 2020-05-26 00:00:00 Completed Lavonne Astudilloold Covid-19 Vaccine Moderna (Spikevax), Mrna-lnp, Richard Protein, Pf 2020-05-26 00:00:00 Completed Lavonne Astudilloold Covid-19 Vaccine Moderna (Spikevax), Mrna-lnp, Richard Protein, Pf 2020-05-26 00:00:00 Completed Lavonne Astudilloold Xolair 2020-05-25 00:00:00 Completed Lavonne Astudilloold Xolair 2020-05-25 00:00:00 Completed Lavonne Guadarramaybold Xolair 2020-05-25 00:00:00 Completed Lavonne Guadarramaybold Xolair 2020-05-25 00:00:00 Completed Lavonne Seybold Xolair 2020-04-27 00:00:00 Completed Lavonne Seybold Xolair 2020-04-27 00:00:00 Completed Lavonne Guadarramaybold Xolair 2020-04-27 00:00:00 Completed Lavonne Guadarramaybold Xolair 2020-04-27 00:00:00 Completed Lavonne Seybold Xolair 2020-03-30 00:00:00 Completed Lavonne Guadarramaybold Xolair 2020-03-30 00:00:00 Completed Lavonne Guadarramaybold Xolair 2020-03-30 00:00:00 Completed Lavonne Guadarramaybold Xolair 2020-03-30 00:00:00 Completed Lavonne Guadarramaybold Xolair 2020-02-22 00:00:00 Completed Lavonne Guadarramaybold Xolair 2020-02-22 00:00:00 Completed Lavonne Guadarramaybold Xolair 2020-02-22 00:00:00 Completed Lavonne Guadarramaybold Xolair 2020-02-22 00:00:00 Completed Lavonne Astudilloold Influenza Virus Vaccine, Quad, Egg Free 2020-01-25 00:00:00 Completed Lavonne Guadarramaybold Xolair 2020-01-25 00:00:00 Completed Lavonne Astudilloold Influenza Virus Vaccine, Quad, Egg Free 2020-01-25 00:00:00 Completed Lavonne Guadarramaybold Xolair 2020-01-25 00:00:00 Completed Lavonne Guadarramaybold Influenza Virus Vaccine, Quad, Egg Free 2020-01-25 00:00:00 Completed Lavonne Guadarramaybold Xolair 2020-01-25 00:00:00 Completed Lavonne Guadarramaybold Influenza Virus Vaccine, Quad, Egg Free 2020-01-25 00:00:00 Completed Lavonne Guadarramaybold Xolair 2020-01-25 00:00:00 Completed Lavonne Guadarramaybold Xolair 2019-12-30 00:00:00 Completed Lavonne Guadarramaybold Xolair 2019-12-30 00:00:00 Completed Lavonne Guadarramaybold Xolair 2019-12-30 00:00:00 Completed Lavonne Seybold Xolair 2019-12-30 00:00:00 Completed Lavonne Seybold Xolair 2019-11-29 00:00:00 Completed Lavonne Seybold Xolair 2019-11-29 00:00:00 Completed Lavonne Seybold Xolair 2019-11-29 00:00:00 Completed Lavonne Seybold Xolair 2019-11-29 00:00:00 Completed Lavonne Seybold Xolair 2019-10-27 00:00:00 Completed Lavonne Seybold Xolair 2019-10-27 00:00:00 Completed Lavonne Seybold Xolair 2019-10-27 00:00:00 Completed Lavonne Seybold Xolair 2019-10-27 00:00:00 Completed Lavonne Seybold Xolair 2019-09-28 00:00:00 Completed Lavonne Seybold Xolair 2019-09-28 00:00:00 Completed Lavonne Seybold Xolair 2019-09-28 00:00:00 Completed Lavonne Seybold Xolair 2019-09-28 00:00:00 Completed Lavonne Seybold Xolair 2019-08-31 00:00:00 Completed Lavonne Seybold Xolair 2019-08-31 00:00:00 Completed Lavonne Seybold Xolair 2019-08-31 00:00:00 Completed Lavonne Seybold Xolair 2019-08-31 00:00:00 Completed Lavonne Seybold Xolair 2019-08-03 00:00:00 Completed Lavonne Seybold Xolair 2019-08-03 00:00:00 Completed Lavonne Seybold Xolair 2019-08-03 00:00:00 Completed Lavonne Seybold Xolair 2019-08-03 00:00:00 Completed Lavonne Seybold Xolair 2019-07-06 00:00:00 Completed Lavonne Seybold Xolair 2019-07-06 00:00:00 Completed Lavonne Seybold Xolair 2019-07-06 00:00:00 Completed Lavonne Seybold Xolair 2019-07-06 00:00:00 Completed Lavonne Seybold Xolair 2019-06-11 00:00:00 Completed Lavonne Seybold Xolair 2019-06-11 00:00:00 Completed Lavonne Seybold Xolair 2019-06-11 00:00:00 Completed Lavonne Seybold Xolair 2019-06-11 00:00:00 Completed Lavonne Seybold Xolair 2019-05-11 00:00:00 Completed Lavonne Seybold Xolair 2019-05-11 00:00:00 Completed Lavonne Guadarramaybold Xolair 2019-05-11 00:00:00 Completed Lavonne Seybold Xolair 2019-05-11 00:00:00 Completed Lavonne Seybold Xolair 2019-04-13 00:00:00 Completed Lavonne Seybold Xolair 2019-04-13 00:00:00 Completed Lavonne Seybold Xolair 2019-04-13 00:00:00 Completed Lavonne Seybold Xolair 2019-04-13 00:00:00 Completed Lavonne ybold Xolair 2019-03-16 00:00:00 Completed Lavonne ybold Xolair 2019-03-16 00:00:00 Completed Lavonne Seybold Xolair 2019-03-16 00:00:00 Completed Lavonne Seybold Xolair 2019-03-16 00:00:00 Completed Lavonne Seybold Influenza Virus Vaccine, High Dose, Age 65 And Up 2019-03-03 00:00:00 Completed Lavonne Seybold Influenza Virus Vaccine, High Dose, Age 65 And Up 2019-03-03 00:00:00 Completed Lavonne ybold Influenza Virus Vaccine, High Dose, Age 65 And Up 2019-03-03 00:00:00 Completed Lavonne Seybold Influenza Virus Vaccine, High Dose, Age 65 And Up 2019-03-03 00:00:00 Completed Lavonne Seybold Xolair 2019-02-16 00:00:00 Completed Lavonne Seybold Xolair 2019-02-16 00:00:00 Completed Lavonne Seybold Xolair 2019-02-16 00:00:00 Completed Lavonne Seybold Xolair 2019-02-16 00:00:00 Completed Lavonne Seybold Xolair 2019-01-19 00:00:00 Completed Lavonne Seybold Xolair 2019-01-19 00:00:00 Completed Lavonne Seybold Xolair 2019-01-19 00:00:00 Completed Lavonne Seybold Xolair 2019-01-19 00:00:00 Completed Lavonne Seybold Xolair 2018-12-14 00:00:00 Completed Lavonne Seybold Xolair 2018-12-14 00:00:00 Completed Lavonne Seybold Xolair 2018-12-14 00:00:00 Completed Lavonne Seybold Xolair 2018-12-14 00:00:00 Completed Lavonne Seybold Xolair 2018-11-16 00:00:00 Completed Lavonne Seybold Xolair 2018-11-16 00:00:00 Completed Lavonne Seybold Xolair 2018-11-16 00:00:00 Completed Lavonne Seybold Xolair 2018-11-16 00:00:00 Completed Lavonne Seybold Xolair 2018-10-16 00:00:00 Completed Lavonne Seybold Xolair 2018-10-16 00:00:00 Completed Lavonne Seybold Xolair 2018-10-16 00:00:00 Completed Lavonne Seybold Xolair 2018-10-16 00:00:00 Completed Lavonne Seybold Xolair 2018-09-21 00:00:00 Completed Lavonne Seybold Xolair 2018-09-21 00:00:00 Completed Lavonne Seybold Xolair 2018-09-21 00:00:00 Completed Lavonne Seybold Xolair 2018-09-21 00:00:00 Completed Lavonne Seybold Xolair 2018-08-24 00:00:00 Completed Lavonne Seybold Xolair 2018-08-24 00:00:00 Completed Lavonne Seybold Xolair 2018-08-24 00:00:00 Completed Lavonne Seybold Xolair 2018-08-24 00:00:00 Completed Lavonne Seybold Xolair 2018-07-27 00:00:00 Completed Lavonne Seybold Xolair 2018-07-27 00:00:00 Completed Lavonne Seybold Xolair 2018-07-27 00:00:00 Completed Lavonne Seybold Xolair 2018-07-27 00:00:00 Completed Lavonne Seybold Xolair 2018-06-29 00:00:00 Completed Lavonne Seybold Xolair 2018-06-29 00:00:00 Completed Lavonne Seybold Xolair 2018-06-29 00:00:00 Completed Lavonne Seybold Xolair 2018-06-29 00:00:00 Completed Lavonne Seybold Xolair 2018-06-02 00:00:00 Completed Lavonne Seybold Xolair 2018-06-02 00:00:00 Completed Lavonne Seybold Xolair 2018-06-02 00:00:00 Completed Lavonne Seybold Xolair 2018-06-02 00:00:00 Completed Lavonne Seybold Xolair 2018-04-28 00:00:00 Completed Lavonne Seybold Pneumococcal Vaccine, Polysaccharide 2018-04-28 00:00:00 Completed Lavonne Seybold Xolair 2018-04-28 00:00:00 Completed Lavonne Seybold Pneumococcal Vaccine, Polysaccharide 2018-04-28 00:00:00 Completed Lavonne Seybold Xolair 2018-04-28 00:00:00 Completed Lavonne Seybold Pneumococcal Vaccine, Polysaccharide 2018-04-28 00:00:00 Completed Lavonne Seybold Xolair 2018-04-28 00:00:00 Completed Lavonne Seybold Pneumococcal Vaccine, Polysaccharide 2018-04-28 00:00:00 Completed Lavonne Seybold Xolair 2018-03-26 00:00:00 Completed Lavonne Guadarramaybold Xolair 2018-03-26 00:00:00 Completed Lavonne Seybold Xolair 2018-03-26 00:00:00 Completed Lavonne Seybold Xolair 2018-03-26 00:00:00 Completed Lavonne Seybold Xolair 2018-02-24 00:00:00 Completed Lavonne Seybold Xolair 2018-02-24 00:00:00 Completed Lavonne Seybold Xolair 2018-02-24 00:00:00 Completed Lavonne Seybold Xolair 2018-02-24 00:00:00 Completed Lavonne Astudilloold Influenza Virus Vaccine, High Dose, Age 65 And Up 2018-01-29 00:00:00 Completed Lavonne Guadarramaybold Xolair 2018-01-29 00:00:00 Completed Lavonne ybold Influenza Virus Vaccine, High Dose, Age 65 And Up 2018-01-29 00:00:00 Completed Lavonne ybold Xolair 2018-01-29 00:00:00 Completed Lavonne ybold Influenza Virus Vaccine, High Dose, Age 65 And Up 2018-01-29 00:00:00 Completed Lavonne ybold Xolair 2018-01-29 00:00:00 Completed Lavonne breannaold Influenza Virus Vaccine, High Dose, Age 65 And Up 2018-01-29 00:00:00 Completed Lavonne Seybold Xolair 2018-01-29 00:00:00 Completed Lavonne ybold Xolair 2017-12-16 00:00:00 Completed Lavonne ybold Xolair 2017-12-16 00:00:00 Completed Lavonne ybold Xolair 2017-12-16 00:00:00 Completed Lavonne ybold Xolair 2017-12-16 00:00:00 Completed Lavonne Guadarramaybold Xolair 2017-11-18 00:00:00 Completed Lavonne ybold Xolair 2017-11-18 00:00:00 Completed Lavonne ybold Xolair 2017-11-18 00:00:00 Completed Lavonne ybold Xolair 2017-11-18 00:00:00 Completed Lavonne ybold Xolair 2017-10-24 00:00:00 Completed Lavonne ybold Xolair 2017-10-24 00:00:00 Completed Lavonne Guadarramaybold Xolair 2017-10-24 00:00:00 Completed Lavonne Guadarramaybold Xolair 2017-10-24 00:00:00 Completed Lavonne Seybold Xolair 2017-09-23 00:00:00 Completed Lavonne Seybold Xolair 2017-09-23 00:00:00 Completed Lavonne Guadarramaybold Xolair 2017-09-23 00:00:00 Completed Lavonne Seybold Xolair 2017-09-23 00:00:00 Completed Lavonne Seybold Xolair 2017-08-26 00:00:00 Completed Lavonne Seybold Xolair 2017-08-26 00:00:00 Completed Lavonne Seybold Xolair 2017-08-26 00:00:00 Completed Lavonne Seybold Xolair 2017-08-26 00:00:00 Completed Lavonne Seybold Xolair 2017-07-28 00:00:00 Completed Lavonne Seybold Xolair 2017-07-28 00:00:00 Completed Lavonne Seybold Xolair 2017-07-28 00:00:00 Completed Lavonne Seybold Xolair 2017-07-28 00:00:00 Completed Lavonne Seybold Xolair 2017-06-30 00:00:00 Completed Lavonne Seybold Xolair 2017-06-30 00:00:00 Completed Lavonne Seybold Xolair 2017-06-30 00:00:00 Completed Lavonne Seybold Xolair 2017-06-30 00:00:00 Completed Lavonne Seybold Xolair 2017-05-19 00:00:00 Completed Lavonne Seybold Xolair 2017-05-19 00:00:00 Completed Lavonne Seybold Xolair 2017-05-19 00:00:00 Completed Lavonne Seybold Xolair 2017-05-19 00:00:00 Completed Lavonne Seybold Xolair 2017-04-21 00:00:00 Completed Lavonne Seybold Xolair 2017-04-21 00:00:00 Completed Lavonne Seybold Xolair 2017-04-21 00:00:00 Completed Lavonne Seybold Xolair 2017-04-21 00:00:00 Completed Lavonne Seybold Xolair 2017-03-24 00:00:00 Completed Lavonne Seybold Xolair 2017-03-24 00:00:00 Completed Lavonne Seybold Xolair 2017-03-24 00:00:00 Completed Lavonne Seybold Xolair 2017-03-24 00:00:00 Completed Lavonne Seybold Xolair 2017-02-20 00:00:00 Completed Lavonne Seybold Xolair 2017-02-20 00:00:00 Completed Lavonne Seybold Xolair 2017-02-20 00:00:00 Completed Lavonne Seybold Xolair 2017-02-20 00:00:00 Completed Lavonne Seybold Xolair 2017-01-20 00:00:00 Completed Lavonne Seybold Xolair 2017-01-20 00:00:00 Completed Lavonne ybold Xolair 2017-01-20 00:00:00 Completed Lavonne Seybold Xolair 2017-01-20 00:00:00 Completed Lavonne breannaold Influenza Virus Vaccine, High Dose, Age 65 And Up 2016-12-30 00:00:00 Completed Lavonne ybold Influenza Virus Vaccine, High Dose, Age 65 And Up 2016-12-30 00:00:00 Completed Lavonne ybold Influenza Virus Vaccine, High Dose, Age 65 And Up 2016-12-30 00:00:00 Completed Lavonne ybold Influenza Virus Vaccine, High Dose, Age 65 And Up 2016-12-30 00:00:00 Completed Lavonne ybold Xolair 2016-12-11 00:00:00 Completed Lavonne Seybold Xolair 2016-12-11 00:00:00 Completed Lavonne Seybold Xolair 2016-12-11 00:00:00 Completed Lavonne Seybold Xolair 2016-12-11 00:00:00 Completed Lavonne Seybold Xolair 2016-11-13 00:00:00 Completed Lavonne Seybold Xolair 2016-11-13 00:00:00 Completed Lavonne Seybold Xolair 2016-11-13 00:00:00 Completed Lavonne Seybold Xolair 2016-11-13 00:00:00 Completed Lavonne Seybold Xolair 2016-10-17 00:00:00 Completed Lavonne Seybold Xolair 2016-10-17 00:00:00 Completed Lavonne Seybold Xolair 2016-10-17 00:00:00 Completed Lavonne Seybold Xolair 2016-10-17 00:00:00 Completed Lavonne Seybold Xolair 2016-09-18 00:00:00 Completed Lavonne Guadarramaybold Xolair 2016-09-18 00:00:00 Completed Lavonne Seybold Xolair 2016-09-18 00:00:00 Completed Lavonne Seybold Xolair 2016-09-18 00:00:00 Completed Lavonne Seybold Xolair 2016-08-22 00:00:00 Completed Lavonne Seybold Xolair 2016-08-22 00:00:00 Completed Lavonne Seybold Xolair 2016-08-22 00:00:00 Completed Lavonne Guadarramaybold Xolair 2016-08-22 00:00:00 Completed Lavonne Seybold Xolair 2016-07-24 00:00:00 Completed Lavonne Guadarramaybold Xolair 2016-07-24 00:00:00 Completed Lavonne Seybold Xolair 2016-07-24 00:00:00 Completed Lavonne Seybold Xolair 2016-07-24 00:00:00 Completed Lavonne Seybold Xolair 2016-01-31 00:00:00 Completed Lavonne Seybold Xolair 2016-01-31 00:00:00 Completed Lavonne Seybold Xolair 2016-01-31 00:00:00 Completed Lavonne Seybold Xolair 2016-01-31 00:00:00 Completed Lavonne ybold Influenza Virus Vaccine, High Dose, Age 65 And Up 2016-01-18 00:00:00 Completed Lavonne ybold Influenza Virus Vaccine, High Dose, Age 65 And Up 2016-01-18 00:00:00 Completed Lavonne Seybold Influenza Virus Vaccine, High Dose, Age 65 And Up 2016-01-18 00:00:00 Completed Lavonne ybold Influenza Virus Vaccine, High Dose, Age 65 And Up 2016-01-18 00:00:00 Completed Lavonne Seybold Xolair 2016-01-03 00:00:00 Completed Lavonne ybold Xolair 2016-01-03 00:00:00 Completed Lavonne ybold Xolair 2016-01-03 00:00:00 Completed Lavonne ybold Xolair 2016-01-03 00:00:00 Completed Lavonne ybold Xolair 2015-11-22 00:00:00 Completed Lavonne ybold Xolair 2015-11-22 00:00:00 Completed Lavonne ybold Xolair 2015-11-22 00:00:00 Completed Lavonne ybold Xolair 2015-11-22 00:00:00 Completed Lavonne ybold Influenza Virus Vaccine, High Dose, Age 65 And Up 2015-01-12 00:00:00 Completed Lavonne John Pneumococcal Vaccine, Conjugate 13 2015-01-12 00:00:00 Completed Lavonne Seybold Influenza Virus Vaccine, High Dose, Age 65 And Up 2015-01-12 00:00:00 Completed Lavnone Seybold Pneumococcal Vaccine, Conjugate 13 2015-01-12 00:00:00 Completed Lavonne Seybold Influenza Virus Vaccine, High Dose, Age 65 And Up 2015-01-12 00:00:00 Completed Lavonne Seybold Pneumococcal Vaccine, Conjugate 13 2015-01-12 00:00:00 Completed Lavonne Seybold Influenza Virus Vaccine, High Dose, Age 65 And Up 2015-01-12 00:00:00 Completed Lavonne Seybold Pneumococcal Vaccine, Conjugate 2015-01-12 00:00:00 Completed Lavonne Seybold Xolair 2014-06-20 00:00:00 Completed Lavonne Seybold Xolair 2014-06-20 00:00:00 Completed Lavonne Seybold Xolair 2014-06-20 00:00:00 Completed Lavonne Seybold Xolair 2014-06-20 00:00:00 Completed Lavonne Seybold Xolair 2014-06-06 00:00:00 Completed Lavonne Seybold Xolair 2014-06-06 00:00:00 Completed Lavonne Seybold Xolair 2014-06-06 00:00:00 Completed Lavonne Seybold Xolair 2014-06-06 00:00:00 Completed Lavonne Seybold Xolair 2014-05-23 00:00:00 Completed Lavonne Seybold Xolair 2014-05-23 00:00:00 Completed Lavonne Seybold Xolair 2014-05-23 00:00:00 Completed Lavonne Seybold Xolair 2014-05-23 00:00:00 Completed Lavonne Seybold Xolair 2014-05-10 00:00:00 Completed Lavonne Seybold Xolair 2014-05-10 00:00:00 Completed Lavonne Seybold Xolair 2014-05-10 00:00:00 Completed Lavonne Seybold Xolair 2014-05-10 00:00:00 Completed Lavonne Seybold Xolair 2014-04-19 00:00:00 Completed Lavonne Seybold Xolair 2014-04-19 00:00:00 Completed Lavonne Seybold Xolair 2014-04-19 00:00:00 Completed Lavonne Seybold Xolair 2014-04-19 00:00:00 Completed Lavonne Seybold Xolair 2014-03-22 00:00:00 Completed Lavonne Seybold Xolair 2014-03-22 00:00:00 Completed Lavonne Seybold Xolair 2014-03-22 00:00:00 Completed Lavonne Seybold Xolair 2014-03-22 00:00:00 Completed Lavonne Seybold Xolair 2014-03-08 00:00:00 Completed Lavonne Seybold Xolair 2014-03-08 00:00:00 Completed Lavonne Seybold Xolair 2014-03-08 00:00:00 Completed Lavonne Seybold Xolair 2014-03-08 00:00:00 Completed Lavonne Seybold Xolair 2014-02-22 00:00:00 Completed Lavonne Seybold Xolair 2014-02-22 00:00:00 Completed Lavonne Seybold Xolair 2014-02-22 00:00:00 Completed Lavonne Seybold Xolair 2014-02-22 00:00:00 Completed Lavonne Seybold Xolair 2014-02-07 00:00:00 Completed Lavonne Seybold Influenza Virus Vaccine, age 6 months and up 2014-02-07 00:00:00 Completed Lavonne Seybold Xolair 2014-02-07 00:00:00 Completed Lavonne Seybold Influenza Virus Vaccine, age 6 months and up 2014-02-07 00:00:00 Completed Lavonne Seybold Xolair 2014-02-07 00:00:00 Completed Lavonne Seybold Influenza Virus Vaccine, age 6 months and up 2014-02-07 00:00:00 Completed Lavonne Seybold Xolair 2014-02-07 00:00:00 Completed Lavonne Seybold Influenza Virus Vaccine, age 6 months and up 2014-02-07 00:00:00 Completed Lavonne Seybold Xolair 2014-01-24 00:00:00 Completed Lavonne Seybold Xolair 2014-01-24 00:00:00 Completed Lavonne Seybold Xolair 2014-01-24 00:00:00 Completed Lavonne Seybold Xolair 2014-01-24 00:00:00 Completed Lavonne Seybold Xolair 2014-01-11 00:00:00 Completed Lavonne Seybold Xolair 2014-01-11 00:00:00 Completed Lavonne Seybold Xolair 2014-01-11 00:00:00 Completed Lavonne Seybold Xolair 2014-01-11 00:00:00 Completed Lavonne Seybold Xolair 2013-12-27 00:00:00 Completed Lavonne Seybold Xolair 2013-12-27 00:00:00 Completed Lavonne Seybold Xolair 2013-12-27 00:00:00 Completed Lavonne Seybold Xolair 2013-12-27 00:00:00 Completed Lavonne Seybold Xolair 2013-12-13 00:00:00 Completed Lavonne Seybold Xolair 2013-12-13 00:00:00 Completed Lavonne Seybold Xolair 2013-12-13 00:00:00 Completed Lavonne Seybold Xolair 2013-12-13 00:00:00 Completed Lavonne Seybold Xolair 2013-11-24 00:00:00 Completed Lavonne Seybold Xolair 2013-11-24 00:00:00 Completed Lavonne Seybold Xolair 2013-11-24 00:00:00 Completed Lavonne Seybold Xolair 2013-11-24 00:00:00 Completed Lavonne Seybold Xolair 2013-11-04 00:00:00 Completed Lavonne Seybold Xolair 2013-11-04 00:00:00 Completed Lavonne Seybold Xolair 2013-11-04 00:00:00 Completed Lavonne Seybold Xolair 2013-11-04 00:00:00 Completed Lavonne Seybold Xolair 2013-10-21 00:00:00 Completed Lavonne Seybold Xolair 2013-10-21 00:00:00 Completed Lavonne Seybold Xolair 2013-10-21 00:00:00 Completed Lavonne Seybold Xolair 2013-10-21 00:00:00 Completed Lavonne Seybold Xolair 2013-10-07 00:00:00 Completed Lavonne Seybold Xolair 2013-10-07 00:00:00 Completed Lavonne Seybold Xolair 2013-10-07 00:00:00 Completed Lavonne Seybold Xolair 2013-10-07 00:00:00 Completed Lavonne ybold Xolair 2013-09-23 00:00:00 Completed Lavonne Seybold Xolair 2013-09-23 00:00:00 Completed Lavonne ybold Xolair 2013-09-23 00:00:00 Completed Lavonne ybold Xolair 2013-09-23 00:00:00 Completed Lavonne Seybold Xolair 2013-09-09 00:00:00 Completed Lavonne Seybold Xolair 2013-09-09 00:00:00 Completed Lavonne Seybold Xolair 2013-09-09 00:00:00 Completed Lavonne Seybold Xolair 2013-09-09 00:00:00 Completed Lavonne ybold Xolair 2013-08-24 00:00:00 Completed Lavonne ybold Xolair 2013-08-24 00:00:00 Completed Lavonne ybold Xolair 2013-08-24 00:00:00 Completed Lavonne Seybold Xolair 2013-08-24 00:00:00 Completed Lavonne Seybold Xolair 2013-08-06 00:00:00 Completed Lavonne Seybold Xolair 2013-08-06 00:00:00 Completed Lavonne Seybold Xolair 2013-08-06 00:00:00 Completed Lavonne Seybold Xolair 2013-08-06 00:00:00 Completed Lavonne Seybold Xolair 2013-07-27 00:00:00 Completed Lavonne Seybold Xolair 2013-07-27 00:00:00 Completed Lavonne Seybold Xolair 2013-07-27 00:00:00 Completed Lavonne Seybold Xolair 2013-07-27 00:00:00 Completed Lavonne Seybold Xolair 2013-07-09 00:00:00 Completed Lavonne Seybold Xolair 2013-07-09 00:00:00 Completed Lavonne Seybold Xolair 2013-07-09 00:00:00 Completed Lavonne Guadarramaybold Xolair 2013-07-09 00:00:00 Completed Lavonne Seybold Xolair 2013-06-25 00:00:00 Completed Lavonne Seybold Xolair 2013-06-25 00:00:00 Completed Lavonne Seybold Xolair 2013-06-25 00:00:00 Completed Lavonne Seybold Xolair 2013-06-25 00:00:00 Completed Lavonne Seybold Xolair 2013-06-11 00:00:00 Completed Lavonne Seybold Xolair 2013-06-11 00:00:00 Completed Lavonne Seybold Xolair 2013-06-11 00:00:00 Completed Lavonne Seybold Xolair 2013-06-11 00:00:00 Completed Lavonne Seybold Xolair 2013-05-26 00:00:00 Completed Lavonne Seybold Xolair 2013-05-26 00:00:00 Completed Lavonne Seybold Xolair 2013-05-26 00:00:00 Completed Lavonne Seybold Xolair 2013-05-26 00:00:00 Completed Lavonne Seybold Xolair 2013-05-14 00:00:00 Completed Lavonne Seybold Xolair 2013-05-14 00:00:00 Completed Lavonne Seybold Xolair 2013-05-14 00:00:00 Completed Lavonne Seybold Xolair 2013-05-14 00:00:00 Completed Lavonne Seybold Xolair 2013-04-22 00:00:00 Completed Lavonne Seybold Xolair 2013-04-22 00:00:00 Completed Lavonne Seybold Xolair 2013-04-22 00:00:00 Completed Lavonne Seybold Xolair 2013-04-22 00:00:00 Completed Lavonne Seybold Xolair 2013-04-07 00:00:00 Completed Lavonne Seybold Xolair 2013-04-07 00:00:00 Completed Lavonne Seybold Xolair 2013-04-07 00:00:00 Completed Lavonne Seybold Xolair 2013-04-07 00:00:00 Completed Lavonne Seybold Xolair 2013-03-24 00:00:00 Completed Lavonne Seybold Xolair 2013-03-24 00:00:00 Completed Lavonne Seybold Xolair 2013-03-24 00:00:00 Completed Lavonne Seybold Xolair 2013-03-24 00:00:00 Completed Lavonne Seybold Xolair 2013-03-10 00:00:00 Completed Lavonne Seybold Xolair 2013-03-10 00:00:00 Completed Lavonne Seybold Xolair 2013-03-10 00:00:00 Completed Lavonne Seybold Xolair 2013-03-10 00:00:00 Completed Lavonne Seybold Xolair 2013-02-24 00:00:00 Completed Lavonne Seybold Xolair 2013-02-24 00:00:00 Completed Lavonne Seybold Xolair 2013-02-24 00:00:00 Completed Lavonne Seybold Xolair 2013-02-24 00:00:00 Completed Lavonne Seybold Xolair 2013-02-10 00:00:00 Completed Lavonne Seybold Influenza Virus Vaccine, age 6 months and up 2013-02-10 00:00:00 Completed Lavonne Seybold Xolair 2013-02-10 00:00:00 Completed Lavonne Seybold Influenza Virus Vaccine, age 6 months and up 2013-02-10 00:00:00 Completed Lavonne Seybold Xolair 2013-02-10 00:00:00 Completed Lavonne Seybold Influenza Virus Vaccine, age 6 months and up 2013-02-10 00:00:00 Completed Lavonne Seybold Xolair 2013-02-10 00:00:00 Completed Lavonne Seybold Influenza Virus Vaccine, age 6 months and up 2013-02-10 00:00:00 Completed Lavonne Seybold Xolair 2013-01-26 00:00:00 Completed Alvonne Seybold Xolair 2013-01-26 00:00:00 Completed Lavonne Seybold Xolair 2013-01-26 00:00:00 Completed Lavonne Seybold Xolair 2013-01-26 00:00:00 Completed Lavonne Seybold Xolair 2013-01-12 00:00:00 Completed Lavonne Seybold Xolair 2013-01-12 00:00:00 Completed Lavonne Seybold Xolair 2013-01-12 00:00:00 Completed Lavonne Seybold Xolair 2013-01-12 00:00:00 Completed Lavonne Seybold Xolair 2012-12-30 00:00:00 Completed Lavonne Seybold Shingles SQ (Zostavax) 2012-12-11 1 00:00:00 Completed Lavonne Seybold Xolair 2012-12-30 00:00:00 Completed Lavonne Seybold Shingles SQ (Zostavax) 2012-12-11 1 00:00:00 Completed Lavonne Seybold Xolair 2012-12-30 00:00:00 Completed Lavonne Seybold Shingles SQ (Zostavax) 2012-12-11 00:00:00 Completed Lavonne Seybold Xolair 2012-12-30 00:00:00 Completed Lavonne Seybold Shingles SQ (Zostavax) 2012-12-11 00:00:00 Completed Lavonne Seybold Xolair 2012-12-16 00:00:00 Completed Lavonne Seybold Xolair 2012-12-16 00:00:00 Completed Lavonne Seybold Xolair 2012-12-16 00:00:00 Completed Lavonne Seybold Xolair 2012-12-16 00:00:00 Completed Lavonne Seybold Xolair 2012-12-02 00:00:00 Completed Lavonne Seybold Xolair 2012-12-02 00:00:00 Completed Lavonne Seybold Xolair 2012-12-02 00:00:00 Completed Lavonne Seybold Xolair 2012-12-02 00:00:00 Completed Lavonne Seybold Xolair 2012-11-18 00:00:00 Completed Lavonne Seybold Xolair 2012-11-18 00:00:00 Completed Lavonne Seybold Xolair 2012-11-18 00:00:00 Completed Lavonne Seybold Xolair 2012-11-18 00:00:00 Completed Lavonne Seybold Xolair 2012-11-04 00:00:00 Completed Lavonne Seybold Xolair 2012-11-04 00:00:00 Completed Lavonne Seybold Xolair 2012-11-04 00:00:00 Completed Lavonne Seybold Xolair 2012-11-04 00:00:00 Completed Lavonne Seybold Xolair 2012-10-21 00:00:00 Completed Lavonne Seybold Xolair 2012-10-21 00:00:00 Completed Lavonne Seybold Xolair 2012-10-21 00:00:00 Completed Lavonne Seybold Xolair 2012-10-21 00:00:00 Completed Lavonne Seybold Xolair 2012-10-07 00:00:00 Completed Lavonne Seybold Xolair 2012-10-07 00:00:00 Completed Lavonne Seybold Xolair 2012-10-07 00:00:00 Completed Lavonne Seybold Xolair 2012-10-07 00:00:00 Completed Lavonne Seybold Xolair 2012-09-23 00:00:00 Completed Lavonne Seybold Xolair 2012-09-23 00:00:00 Completed Lavonne Seybold Xolair 2012-09-23 00:00:00 Completed Lavonne Seybold Xolair 2012-09-23 00:00:00 Completed Lavonne Seybold Xolair 2012-09-09 00:00:00 Completed Lavonne Seybold Xolair 2012-09-09 00:00:00 Completed Lavonne Seybold Xolair 2012-09-09 00:00:00 Completed Lavonne Seybold Xolair 2012-09-09 00:00:00 Completed Lavonne Seybold Xolair 2012-08-26 00:00:00 Completed Lavonne Seybold Xolair 2012-08-26 00:00:00 Completed Lavonne Seybold Xolair 2012-08-26 00:00:00 Completed Lavonne Seybold Xolair 2012-08-26 00:00:00 Completed Lavonne Seybold Xolair 2012-08-12 00:00:00 Completed Lavonne Seybold Xolair 2012-08-12 00:00:00 Completed Lavonne Seybold Xolair 2012-08-12 00:00:00 Completed Lavonne Seybold Xolair 2012-08-12 00:00:00 Completed Lavonne Seybold Xolair 2012-07-29 00:00:00 Completed Lavonne Seybold Xolair 2012-07-29 00:00:00 Completed Lavonne Seybold Xolair 2012-07-29 00:00:00 Completed Lavonne Seybold Xolair 2012-07-29 00:00:00 Completed Lavonne Seybold Xolair 2012-07-15 00:00:00 Completed Lavonne Seybold Xolair 2012-07-15 00:00:00 Completed Lavonne Seybold Xolair 2012-07-15 00:00:00 Completed Lavonne Seybold Xolair 2012-07-15 00:00:00 Completed Lavonne Seybold Xolair 2012-07-01 00:00:00 Completed Lavonne Seybold Xolair 2012-07-01 00:00:00 Completed Lavonne Seybold Xolair 2012-07-01 00:00:00 Completed Lavonne Seybold Xolair 2012-07-01 00:00:00 Completed Lavonne Seybold Xolair 2012-06-17 00:00:00 Completed Lavonne Seybold Xolair 2012-06-17 00:00:00 Completed Lavonne Seybold Xolair 2012-06-17 00:00:00 Completed Lavonne Seybold Xolair 2012-06-17 00:00:00 Completed Lavonne Seybold Xolair 2012-06-04 00:00:00 Completed Lavonne Seybold Xolair 2012-06-04 00:00:00 Completed Lavonne Seybold Xolair 2012-06-04 00:00:00 Completed Lavonne Seybold Xolair 2012-06-04 00:00:00 Completed Lavonne Seybold Pneumococcal Vaccine, Polysaccharide 2010-01-30 00:00:00 Completed Lavonne Seybold Pneumococcal Vaccine, Polysaccharide 2010-01-30 00:00:00 Completed Lavonne Seybold Pneumococcal Vaccine, Polysaccharide 2010-01-30 00:00:00 Completed Lavonne Seybold Pneumococcal Vaccine, Polysaccharide 2010-01-30 00:00:00 Completed Lavonne Seybold Influenza Virus Vaccine, age 6 months and up 2009-01-10 00:00:00 Completed Lavonne Seybold Influenza Virus Vaccine, age 6 months and up 2009-01-10 00:00:00 Completed Lavonne Seybold Influenza Virus Vaccine, age 6 months and up 2009-01-10 00:00:00 Completed Lavonne Seybold Influenza Virus Vaccine, age 6 months and up 2009-01-10 00:00:00 Completed Lavonne Seybold Tetanus Toxoid, Adsorbed 2005-01-28 00:00:00 Completed Lavonne Seybold Tetanus Toxoid, Adsorbed 2005-01-28 00:00:00 Completed Lavonne Seybold Tetanus Toxoid, Adsorbed 2005-01-28 00:00:00 Completed Lavonne Seybold Tetanus Toxoid, Adsorbed 2005-01-28 00:00:00 Completed Lavonne Guadarramaybold Vital Signs Vital Name Observation Time Observation Value Comments S ource Systolic blood pressure 2024-03-19 18:57:00 117 mm[Hg] [facility] Diastolic blood pressure 2024-03-19 18:57:00 79 mm[Hg] [facility] Heart rate 2024-03-19 18:57:00 101 /min [facility] Body height 2024-03-19 18:57:00 165.1 cm [facility] Body weight 2024-03-19 18:57:00 82.781 kg [facility] BMI 2024-03-19 18:57:00 30.37 kg/m2 [facility] Oxygen saturation in Arterial blood by Pulse oximetry 2024-03-19 18:57:00 96 /min [facility] Systolic blood pressure 2021-08-13 19:56:00 120 mm[Hg] Lavonne Seybo ld Diastolic blood pressure 2021-08-13 19:56:00 76 mm[Hg] Lavonne Seybo ld Heart rate 2021-08-13 19:56:00 68 /min Kelse y Seybold Respiratory rate 2021-08-13 19:56:00 16 /min Lavonne Seybold Body height 2021-08-13 19:56:00 165.1 cm Kaylyn ey Seybold Body weight 2021-08-13 19:56:00 77.111 kg Kaylyn ey Seybold BMI 2021-08-13 19:56:00 28.29 kg/m2 Kaylyn ey Seybold Systolic blood pressure 2021-07-19 19:36:00 124 mm[Hg] Lavonne Seybo ld Diastolic blood pressure 2021-07-19 19:36:00 80 mm[Hg] Lavonne Seybo ld Heart rate 2021-07-19 19:36:00 63 /min Kelse y Seybold Body temperature 2021-07-19 19:36:00 36.5 Margaret Lavonne Seybold Respiratory rate 2021-07-19 19:36:00 16 /min Lavonne Seybold Body height 2021-07-19 19:36:00 165.1 cm Kaylyn ey Seybold Body weight 2021-07-19 19:36:00 77.111 kg Kaylyn ey Seybold BMI 2021-07-19 19:36:00 28.29 kg/m2 Kaylyn ey Seybold Systolic blood pressure 2021-07-10 20:32:00 119 mm[Hg] Lavonne Seybo ld Diastolic blood pressure 2021-07-10 20:32:00 77 mm[Hg] Lavonne Seybo ld Heart rate 2021-07-10 20:32:00 82 /min Kelse y Seybold Body temperature 2021-07-10 20:32:00 36.44 Margaret Lavonne Seybold Respiratory rate 2021-07-10 20:32:00 16 /min Lavonne Seybold Body height 2021-07-10 20:32:00 165.1 cm Kaylyn ey Seybold Body weight 2021-07-10 20:32:00 76.975 kg Kaylyn ey Seybold BMI 2021-07-10 20:32:00 28.24 kg/m2 Kaylyn ey Seybold Oxygen saturation in Arterial blood by Pulse oximetry 2021-07-10 20:32:00 99 /min Lavonne Seybo ld Systolic blood pressure 2021-02-08 18:49:00 119 mm[Hg] Lavonne Seybo ld Diastolic blood pressure 2021-02-08 18:49:00 86 mm[Hg] Lavonne Seybo ld Heart rate 2021-02-08 18:49:00 83 /min Kelse y Seybold Body temperature 2021-02-08 18:49:00 36.39 Margaret Lavonne Seybold Respiratory rate 2021-02-08 18:49:00 18 /min Lavonne Seybold Body height 2021-02-08 18:49:00 165.1 cm Kaylyn ey Seybold Body weight 2021-02-08 18:49:00 82.101 kg Kaylyn galindo [facility] BMI 2021-02-08 18:49:00 30.12 kg/m2 Kaylyn galindo [facility] Oxygen saturation in Arterial blood by Pulse oximetry 2021-02-08 18:49:00 98 /min Lavonne Menon ld Procedures Procedure Date / Time Performed Performing Clinicia n Source FLU VACC(),65+YR ,0.5 ML,IM,ADJUVANTED,TIV( FLUAD) 2024-03-19 19:49:54 Kong Siddiqui [facility] MR ANGIOGRAM NECK WO CONTRAST 2024-01-28 20:18:31 Chen [facility] MR ANGIOGRAM HEAD WO CONTRAST 2024-01-28 20:01:54 Chen [facility] Encounters Start Date/Time End Date/Time Encounter Type Admission Type Attending [facility] Care Facility Care Department Encounter ID Source 2023-12-02 14:30:00 Inpatient EL D'MARTIN SILVIA [facility] [id number] [facility] 2023-11-24 14:30:00 Inpatient EL D'MARTIN, SILVIA [facility] [id number] [facility] 2023-11-17 14:30:00 Inpatient EL D'MARTIN, SILVIA [facility] [id number] [facility] 2023-01-21 11:30:00 Inpatient EL D'MARTIN SIL[facility]IA [facility] [id number] [facility] 2022-12-20 13:00:00 Inpatient EL D'MARTIN, SILVIA [facility] [id number] [facility] 2021-08-09 14:00:02 [id number] 2021-06-06 14:14:22 [facility] [id number] [facility] 2021-06-06 14:05:53 Outpatient Tabor, Na [facility] [id number] [facility] 2021-06-06 13:55:44 Outpatient Tiffani Tabor [facility] [id number] [facility] 2021-06-06 13:50:27 Outpatient Tiffani Tabor [facility] [id number] [facility] 2021-06-06 13:41:11 Outpatient Tiffani Tabor [facility] [id number] [facility] 2021-06-06 13:06:49 Outpatient Tiffani Tabor [facility] ST[facility] [id number] [facility] 2021-06-06 13:02:25 Outpatient Tiffani Tabor [facility] [id number] [facility] 2021-06-06 12:29:08 Outpatient Tiffani Tabor [facility] [id number] [facility] 2021-06-06 12:02:37 Outpatient Tiffani Tabor STMIRIAM[facility] [id number] [facility] 2021-06-06 11:36:04 Outpatient Tiffani Tabor [facility] ST[facility] [id number] [facility] 2024-05-25 15:24:00 2024-05-25 15:24:00 Outpatient JENNY LOPEZ [facility] [id number] [facility] 2024-05-21 12:04:00 2024-05-21 12:04:00 Outpatient JENNY LOPEZ [facility] [id number] [facility] 2024-03-23 00:00:00 2024-03-23 00:00:00 Outpatient MD LAVONNE AVILA [id number] Lavonne John 2024-03-19 13:00:00 2024-03-19 15:35:12 Office Visit Marissa Serrato [facility] [id number] [facility] 2024-01-28 14:00:00 2024-01-28 23:59:00 Outpatient KONG HARTMAN [facility] [id number] [facility] 2024-01-28 13:09:54 2024-01-28 23:59:00 Hospital Encounter Kong Siddiqui [facility] [id number] [facility] 2024-01-28 13:09:30 2024-01-28 23:59:00 Hospital Encounter ChenKong reyes [facility] [id number] [facility] 2024-01-16 15:41:00 2024-01-16 15:41:00 Outpatient SILVIA BENZ [facility] [id number] [facility] 2023-12-16 14:35:00 2023-12-16 14:35:00 Outpatient EL Alesia'SILVIA MARTIN [facility] [id number] [facility] 2023-11-10 16:31:00 2023-11-10 16:31:00 Outpatient EL SILVIA TORRE [facility] [id number] [facility] 2023-11-07 14:02:00 2023-11-07 14:02:00 Outpatient EL SILVIA TORRE [facility] [id number] [facility] 2023-09-01 16:14:00 2023-09-01 16:14:00 Outpatient BENITEZ RODRÍGUEZ [facility] [id number] [facility] 2023-07-25 14:14:00 2023-07-25 14:14:00 Outpatient BENITEZ RODRÍGUEZ [facility] [id number] [place] [facility] 2023-07-23 14:45:00 2023-07-23 14:45:00 Outpatient BENITEZ RODRÍGUEZ [facility] [id number] [place] donnie [facility] 2023-06-10 14:49:00 2023-06-10 14:49:00 Outpatient SILVIA BENZ [facility] [id number] [facility] 2023-04-07 14:20:00 2023-04-07 14:20:00 Outpatient SILVIA BENZ [facility] [id number] [facility] 2023-02-25 10:05:00 2023-02-25 10:05:00 Outpatient SILVIA BENZ [facility] [id number] [facility] 2022-12-09 10:46:00 2022-12-09 10:46:00 Outpatient SILVIA BENZ [facility] [id number] [place] [facility] 2022-11-25 12:56:00 2022-11-25 12:56:00 Outpatient SILVIA BENZ [facility] [id number] [place] [facility] 2022-10-01 11:47:00 2022-10-01 11:47:00 Outpatient BENITEZ RODRÍGUEZ [facility] [id number] [facility] 2022-09-19 16:19:00 2022-09-19 16:19:00 Outpatient BENITEZ RODRÍGUEZ [facility] [id number] [place] [facility] 2022-07-09 14:40:00 2022-07-09 14:40:00 Outpatient LAMONTE REYNA [facility] [id number] [facility] 2022-05-21 13:30:00 2022-05-21 13:30:00 Outpatient ANJEL SHELTON [facility] [id number] [facility] 2022-01-21 13:45:00 2022-01-21 13:45:00 Outpatient INJ, HERNESTO [facility] [id number] [facility] 2021-12-24 14:00:00 2021-12-24 14:00:00 Outpatient INJ, HERNESTO [facility] [id number] [facility] 2021-12-07 15:45:00 2021-12-07 15:45:00 Outpatient LAVONNE MOORE [id number] [facility] 2021-12-07 14:45:00 2021-12-07 14:45:00 Outpatient LAVONNE MOORE [id number] [facility] 2021-12-07 14:15:00 2021-12-07 14:15:00 Outpatient LAVONNE LAVONNE [id number] [facility] 2021-12-07 13:15:00 2021-12-07 13:15:00 Outpatient LAVONNE MOORE [id number] [facility] 2021-11-29 14:00:00 2021-11-29 14:00:00 Outpatient INJ, HERNESTO [facility] [id number] [facility] 2021-11-26 14:00:00 2021-11-26 14:00:00 Outpatient INJ, HERNESTO [facility] [id number] [facility] 2021-11-22 00:00:00 2021-11-22 00:00:00 Outpatient BENITEZ SHETH [id number] [facility] 2021-11-13 00:00:00 2021-11-13 00:00:00 Outpatient MD LAVONNE AVILA [id number] [facility] 2021-11-06 13:45:00 2021-11-06 13:45:00 Outpatient TRED47 [facility] [id number] [facility] 2021-11-05 14:00:00 2021-11-05 14:00:00 Outpatient TRED47 [facility] [id number] [facility] 2021-11-01 14:30:00 2021-11-01 14:30:00 Outpatient TRED47 LAVONNE ESCALONASEY [id number] [facility] 2021-11-01 14:00:00 2021-11-01 14:00:00 Outpatient INJ, HERNESTO MOORE LAVONNE [id number] [facility] 2021-11-01 13:25:00 2021-11-01 13:25:00 Outpatient DOMENICBENITEZ LAVONNE [id number] [facility] 2021-10-01 14:00:00 2021-10-01 14:00:00 Outpatient INJ, HERNESTO ESCALONALILI MOORE [id number] [facility] 2021-08-29 14:00:00 2021-08-29 14:00:00 [facility] [id number] [facility] 2021-08-14 00:00:00 2021-08-14 00:00:00 Outpatient CHRISTYNIKITA TINOCO [facility] [id number] [facility] 2021-08-13 15:15:00 2021-08-13 15:15:00 Outpatient LAVONNE LAVONNE [id number] [facility] 2021-08-13 14:50:00 2021-08-13 15:10:00 [facility] [id number] [facility] 2021-08-07 00:00:00 2021-08-07 00:00:00 Outpatient CHUCKIE NIKITA [facility] [id number] [facility] 2021-08-01 14:00:00 2021-08-01 14:00:00 Outpatient INJ, REBAKOLBY [facility] [id number] [facility] 2021-07-19 13:00:00 2021-07-19 13:30:00 Office Visit Edson Poe [id number] [facility] 2021-07-19 00:00:00 2021-07-19 00:00:00 Outpatient EDSON POE LAVONNE [id number] [facility] 2021-07-10 15:05:00 2021-07-10 15:05:00 Outpatient FLOOR, ALBIN MOORE [id number] [facility] 2021-07-10 14:40:00 2021-07-10 15:00:00 Office Visit Lamonte Reyna [facility] [id number] [facility] 2021-07-04 14:00:00 2021-07-04 14:00:00 Outpatient INJ, [place] [facility] [id number] [facility] 2021-06-06 14:00:00 2021-06-06 14:00:00 Outpatient INJ, [place] [facility] [id number] [facility] 2021-06-01 14:00:00 2021-06-01 14:00:00 Outpatient BOPPIDI, LAMONTE [facility] [id number] [facility] 2021-06-01 14:00:00 2021-06-01 14:00:00 Outpatient BOPPIDI, LAMONTE [facility] [id number] [facility] 2021-06-01 14:00:00 2021-06-01 14:00:00 Outpatient BOPPIDI, LAMONTE [facility] [id number] [facility] 2021-05-09 15:00:00 2021-05-09 15:00:00 Outpatient LAB47 [facility] MO[facility] [id number] [facility] 2021-05-09 14:30:00 2021-05-09 14:30:00 Outpatient INJ, [place] [facility] [id number] [facility] 2021-04-11 14:00:00 2021-04-11 14:00:00 Outpatient INJ, HERNESTO ESCALONALILI MOORE [id number] [facility] 2021-04-09 00:00:00 2021-04-09 00:00:00 Outpatient ABIMAELEKTA JIMENEZLILI MOORE [id number] [facility] 2021-03-27 00:00:00 2021-03-27 00:00:00 Outpatient LUI, EDSON ESCALONALILI MOORE [id number] [facility] 2021-03-08 13:45:00 2021-03-08 13:45:00 Outpatient INJ, HERNESTO ESCALONALILI MOORE [id number] [facility] 2021-03-05 14:00:00 2021-03-05 14:00:00 Outpatient ABIMAEL, EKTA [facility] [id number] [facility] 2021-02-23 00:00:00 2021-02-23 00:00:00 Outpatient LUI, EDSON [facility] [id number] [facility] 2021-02-16 18:30:00 2021-02-16 18:30:00 Outpatient LUI, EDSON MOORE LAVONNE [id number] [facility] 2021-02-16 00:00:00 2021-02-16 00:00:00 Outpatient LUI, EDSON MOORE LAVONNE [id number] [facility] 2021-02-16 00:00:00 2021-02-16 00:00:00 Outpatient LUI, EDSON ESCALONALILI MOORE [id number] [facility] 2021-02-15 00:00:00 2021-02-15 00:00:00 Outpatient LUI, EDSON ESCALONALILI MOORE [id number] [facility] 2021-02-08 13:50:00 2021-02-08 13:50:00 Outpatient COVID-MODER NA BOOSTER, HERNESTO [facility] [id number] [facility] 2021-02-08 13:18:40 2021-02-08 13:48:40 Office Visit Lui Edson ERIC [id number] [facility] 2021-02-08 13:45:00 2021-02-08 13:45:00 Outpatient INJ, HERNESTO MOORE [id number] [facility] 2021-02-08 00:00:00 2021-02-08 00:00:00 Outpatient EDSON POE [id number] [facility] 2021-02-07 00:00:00 2021-02-07 00:00:00 Outpatient EDSON POE [id number] [facility] 2021-01-22 14:40:00 2021-01-22 14:40:00 Outpatient ABIMAELEKTA [id number] [facility] 2021-01-11 14:30:00 2021-01-11 14:30:00 Outpatient INJ, HERNESTO MOORE [id number] [facility] 2020-12-14 13:30:00 2020-12-14 13:30:00 Outpatient INJ, HERNESTO MOORE [id number] [facility] 2020-11-28 00:00:00 2020-11-28 00:00:00 Outpatient EKTA VARGHESE [id number] [facility] 2020-11-16 14:15:00 2020-11-16 14:15:00 Outpatient INJ, HERNESTO MOORE [id number] [facility] Results Test Description Test Time Test Comments Results Resul t Comments Source MR ANGIOGRAM NECK WO CONTRAST 2024-01-11 8 20:37:29 MR ANGIOGRAPHY OF THE NECK WITH CONTRAST HISTORY: ?From outside [facility], had small vessel disease and occiptial lobstroke. C/O brain fog also COMPARISON: ?None TECHNIQUE: ?Post-contrast MRA of the neck was obtained. MIP images werereviewed. FINDINGS: Aortic arch and arch vessel origins: Classic 3 vessel aortic arch seen withwithout significant stenosis at major arch ostia. Common carotids: Patent without stenosis No significant stenosis seen at both carotid bulbs or cervical ICAs. The left vertebral artery appears patent without areas of significantstenosis. The right vertebral artery is faintly visualized along its courseprobably hypoplastic with a possibility of superimposed mild stenosis seenalong its course. [facility] MR ANGIOGRAM HEAD WO CONTRAST 2024-01-11 8 20:12:28 MR ANGIOGRAPHY OF THE I[place] of SMALL HISTORY: From outside [facility], had small vessel disease and occiptial lobstroke. C/O brain fog also TECHNIQUE: Time of flight MRA of the [place] of small was obtained withoutcontrast COMPARISON: ?None. FINDINGS: The PICA origin is visualized on the left side. An AICA/PICA variantsuspected on the right side. Dolichoectasia seen involving the basilarartery with mild indentation on the most distal medulla oblongata/uppercervic al cord. The basilar artery is normal in caliber no areas ofstenosis. The superior cerebellar arteries are unremarkable. The posteriorcerebral arteries are unremarkable. The distal cervical, petrous, cavernous and supraclinoid internal carotidarteries are unremarkable. The anterior and middle cerebral arteries areunremarkable. An anterior communicating artery is visualized. Medium-size area of encephalomalacia seen at the left VEHICLE DETAILER territory (leftoccipital-tempor al region). [facility]
--- NOTE | 2024-05-29 12:45 | RAD REPORT ---
EXAM: Chest Single View HISTORY: ABDOMINAL DISTENTION COMPARISON: 02/08/2019 FINDINGS: LUNGS/PLEURA: Linear scarring versus subsegmental atelectasis in the right upper lobe and left lung b ase. MEDIASTINUM: The mediastinal silhouette is within normal limits. CARDIAC: The cardiac silhouette is within normal limits. UPPER ABDOMEN: No significant abnormality. BONES: No acute abnormality. LINES/TUBES/OTHER: N/A IMPRESSION: No evidence of acute cardiopulmonary disease.
[2024-05-29] MEDS ORDERED: NA CHLORIDE 0.9% 500 ML ONE (13:54)
[2024-05-29 14:18] LABS: Absolute Basophils 0.1 K/uL (0-0.5); Absolute Eosinophils 0.1 K/uL (0-0.5); Absolute Lymphocytes (CBC) 2.6 K/uL (0.7-4.9); Absolute Monocytes 0.8 K/uL (0.1-1.3); Absolute Neutrophil 10.3 K/uL (1.8-8.0); Basophils % 0.7 % (0-1.3); Eosinophils % 0.4 % (0-4.4); Hematocrit 45.6 % (36.0-45.0); Hemoglobin 15.2 g/dL (12.0-15.0); Lymphocytes % 18.7 % (15.3-44.8); MCH 31.2 pg (27.0-35.0); MCHC 33.3 g/dL (32.0-36.0); MCV 93.5 fL (80-100); MPV 6.6 fL (7.6-11.3); Monocytes % 5.8 % (3.3-12.3); Neutrophils % 74.4 % (41.7-73.7); Platelets 431 thou/uL (152-406); RBC Red Blood Cell Count 4.88 M/uL (3.86-4.86); Red Cell Distribution Width 13.7 % (12.1-15.2)
[2024-05-29] MEDS ORDERED: LACTULOSE 20 GM/30 ML UCUP ONE (14:31)
[2024-05-29 14:35] LABS: Albumin 3.6 g/dL (3.4-5.0); Albumin/Globulin Ratio 0.9 (1.1-1.8); Anion Gap 10.3 mEq/L (5.0-15.0); Bilirubin Total 0.8 mg/dL (0.2-1.0); Globulin 4.1 g/dL (2.3-3.5); Magnesium 2.1 mg/dL (1.6-2.4); Potassium 3.3 mEq/L (3.5-5.1); Protein, Total 7.7 g/dL (6.4-8.2)
--- NOTE | 2024-05-29 15:11 | RAD REPORT ---
EXAMINATION: CT ABDOMEN AND PELVIS WITH CONTRAST CLINICAL INDICATION: Female, 74 years old.ABD PAIN TECHNIQUE: CT abdomen and pelvis was performed, after the administration of IV contrast, as [facility]. Axial, sagittal and coronal reconstructions were obtained. One or more of the following dose reduction techniques were used: Automated exposure control, adjustment of the mA and/o r kV according to patient size, and/or iterative reconstruction. Unless otherwise specified, incidental findings do not require dedicated imaging follow-up. [id number]. COMPARISON: No prior exam. FINDINGS: LOWER CHEST: No acute process identified.No significant pericardial effusion. UPPER GI: No significant abnormality. LIVER: Hepatic steatosis. Benign appearing and/or stable lesions are identified. No suspicious mass. GALLBLADDER/BILE DUCTS: Nonspecific distended gallbladder. No pericholecystic inflammatory changes.? PANCREAS: No mass, ductal dilation, or luma-pancreatic fluid. SPLEEN: Unremarkable. ADRENALS: No adrenal masses. KIDNEYS AND URETERS: No hydronephrosis.No suspicious renal mass.Nontracking stone lower pole left kid en measuring approximately 4 mm. ABDOMINAL AORTA AND OTHER VESSELS: Normal caliber aorta and IVC. PERITONEUM: No abnormal free fluid. No free air. LYMPH NODES: No pathologic lymphadenopathy. ABDOMINAL WALL: Unremarkable SMALL BOWEL/COLON: Distended colon. No bowel obstruction identified.Pseudopneumatosis along the ascen ding colon Mild diverticulosis without diverticulitis. Moderate semiformed stool and gas present at the ascending and transverse colon. URINARY BLADDER: Underdistended but grossly unremarkable. REPRODUCTIVE ORGANS: No pathologic process. MUSCULOSKELETAL: Mild T10 and inferior endplate deformity consistent with a remote compression fractu re ADDITIONAL FINDINGS: None. IMPRESSION: No acute or significant abnormalities seen in the abdomen or pelvis. Normal appendix. Additional inci dental findings as noted above.
[2024-05-29] MEDS ORDERED: BISACODYL E.C. 5 MG TAB PO ONE (16:23)
--- NOTE | 2024-05-29 16:24 | EDPHYS ---
Physician Documentation [facility] Name: eSlene Oneal Age: 74 yrs Sex: Female : 1950 Arrival Date: 05/29/2024 Time: 11:04 Bed 5 Private MD: ED Physician Ryan Pemberton HPI: 05/29 11:37 This 74 yrs old Unknown Female presents to ER via Ambulatory with complaints of cp Constipation - x5days with bloating. 11:37 The patient presents with abdominal distention that is diffuse. constipation. Onset: cp The symptoms/episode began/occurred 5 day(s) ago. Associated signs and symptoms: Pertinent positives: nausea, Pertinent negatives: blood in stools, chest pain, diarrhea, fever, shortness of breath, vomiting. The symptoms are described as constant. Severity of pain: in the emergency department the pain is unchanged despite home interventions. Historical: - Allergies: 11:34 Clarithromycin; ap3 11:34 Doxycycline (stomach pain); ap3 11:34 mycins; ap3 11:34 PENICILLINS; ap3 - PMHx: 11:34 Asthma; Bronchitis; fibrobyalgia; Hypertension; Osteoporosis; Sleep Apnea; ap3 - Immunization history:: Client reports having NOT received the Covid vaccine. Flu vaccine is up to date. - Infectious Disease History:: Denies. - Social history:: Smoking status: Patient/guardian denies using tobacco, the patient reports quitting approximately 50 years ago. ROS: 11:40 Constitutional: Negative for body aches, chills, fever, poor PO intake, cp 11:40 Eyes: Negative for injury, pain, redness, and discharge, cp 11:40 ENT: Negative for drainage from ear(s), ear pain, sore throat, difficulty swallowing, difficulty handling secretions, 11:40 Cardiovascular: Negative for chest pain, edema, palpitations, 11:40 Respiratory: Negative for cough, shortness of breath, wheezing, 11:40 Abdomen/GI: Positive for abdominal pain, abdominal distension, Negative for vomiting, diarrhea, constipation, black/tarry stool, rectal bleeding, 11:40 Back: Negative for pain at rest, pain with movement, 11:40 : Negative for urinary symptoms, 11:40 Neuro: Negative for altered mental status, 11:40 All other systems are negative, cp Exam: 11:45 Constitutional: The patient appears in no acute distress, alert, awake, cp non-diaphoretic, non-toxic, well developed, well nourished, uncomfortable, 11:45 Head/Face: Normocephalic, atraumatic. cp 11:45 Eyes: Periorbital structures: appear normal, Conjunctiva: normal, no exudate, no injection, Sclera: no appreciated abnormality, Lids and lashes: appear normal, bilaterally, 11:45 ENT: External ear(s): are unremarkable, Nose: is normal, Mouth: Lips: moist, Oral mucosa: moist, Posterior pharynx: Airway: no evidence of obstruction, patent, 11:45 Chest/axilla: Inspection: normal, 11:45 Cardiovascular: Rate: tachycardic, Rhythm: regular, Edema: is not appreciated, JVD: is not appreciated, 11:45 Respiratory: the patient does not display signs of respiratory distress, Respirations: normal, no use of accessory muscles, no retractions, labored breathing, is not present, Breath sounds: are clear throughout, no decreased breath sounds, no stridor, no wheezing, 11:45 Abdomen/GI: Inspection: distension, that is mild, Bowel sounds: active, all quadrants, Palpation: soft, in all quadrants, mild abdominal tenderness, in all quadrants, rebound tenderness, is not appreciated, 11:45 Back: CVA tenderness, is absent, 11:45 Skin: no rash present. 11:45 Neuro: Orientation: to person, place \T\ time. Mentation: is normal, Motor: moves all fours, strength is normal, 13:57 ECG was reviewed by the Attending Physician. cp Vital Signs: 11:30 BP 138 / 84; Pulse 121; Resp 17; Temp 98; Pulse Ox 92% on R/A; Weight 83.01 kg; Height ap3 5 ft. 5 in. ; Pain 3/10; 11:30 Pulse 117; Pulse Ox 95% on R/A; ap3 15:16 BP 133 / 79; Pulse 94; Resp 15; Pulse Ox 98% ; ko1 16:29 BP 138 / 80; Pulse 92; Resp 16; Pulse Ox 100% on R/A; ko1 11:30 Body Mass Index 30.45 (83.01 kg, 165.1 cm) ap3 11:30 Pain Scale: Adult ap3 MDM: 12:00 Differential diagnosis: constipation, bowel obstruction, diverticulitis, colitis. 12:32 Medical Screening Exam initiated juan carlos 16:23 Data reviewed: vital signs, nurses notes, lab test result(s), EKG, radiologic studies, cp CT scan, and as a result, I will discharge patient. 16:23 I considered the following discharge prescriptions or medication management in the emergency department Medications were administered in the Emergency Department. See MAR. Care significantly affected by the following chronic conditions: Hypertension. Counseling: I had a detailed discussion with the patient and/or guardian regarding the historical points, exam findings, and any diagnostic results supporting the discharge/admit diagnosis, lab results, radiology results, to return to the emergency department if symptoms worsen or persist or if there are any questions or concerns that arise at home. Response to treatment: the patient's symptoms have mildly improved after treatment, and as a result, I will discharge patient. Special discussion: Based on the patient's Hx, exam, and Dx evaluation, there is no indication for emergent surgery or inpatient Tx. It is understood by the patient/guardian that if the Sx's persist or worsen they need to return immediately for re-evaluation. 05/29 11:36 Order name: CBC with Diff; Complete Time: 15:06 05/29 15:07 Interpretation: Normal except: WBC 13.90; RBC 4.88; HGB 15.2; HCT 45.6; PLT 431; MPV cp 6.6; DILIP% 74.4; NEUT A 10.3. 05/29 11:36 Order name: CMP; Complete Time: 15:06 05/29 15:07 Interpretation: Normal except: K 3.3; GLUC 113; GFR 62; GLOB 4.1; A/G 0.9. 05/29 11:36 Order name: Lipase; Complete Time: 15:06 05/29 11:37 Order name: Magnesium; Complete Time: 15:06 05/29 11:37 Order name: XRAY Chest (1 view); Complete Time: 12:46 05/29 12:32 Order name: CT Abd/Pelvis - PO and IV Contrast; Complete Time: 15:14 05/29 11:36 Order name: EKG; Complete Time: 11:37 05/29 11:36 Order name: IV Saline Lock; Complete Time: 12:41 cp 05/29 11:36 Order name: Labs collected and sent; Complete Time: 12:41 cp 05/29 11:36 Order name: EKG - Nurse/Tech; Complete Time: 13:57 cp 05/29 12:54 Order name: Labs - recollect needed; Complete Time: 13:57 ap3 EC:57 Rate is 103 beats/min. Rhythm is regular. [place] interval is normal. QRS interval is cp normal. QT interval is normal. T waves are Inverted in lead aVR. Interpreted by me. Reviewed by me. Administered Medications: 13:57 Drug: NS 0.9% IV 500 ml 500 ml IV at 1 bolus once; to be given as a bolus over 60 ko1 minutes Volume: 500 ml; Route: IV; Rate: 1 bolus; Site: left forearm; 16:19 Follow up: Response: No adverse reaction; IV Status: Completed infusion; IV Intake: ko1 500ml 14:34 Drug: Lactulose PO 30 grams 45 ml PO once Volume: 45 ml; Route: PO; ko1 15:04 Follow up: Response: No adverse reaction ko1 16:25 Drug: Dulcolax PO Delayed Release Tablet 5 mg PO once Route: PO; ko1 Disposition Summary: 05/29/24 16:23 Discharge Ordered Notes: Location: Home cp Problem: new cp Symptoms: have improved cp Condition: Stable cp Diagnosis - Constipation, unspecified cp Followup: cp - With: Private Physician - When: 2 - 3 days - Reason: Worsening of condition Discharge Instructions: - Discharge Summary Sheet cp - Constipation, Adult cp Forms: - Medication Reconciliation Form cp - Antibiotic Education cp - Prescription Opioid Use cp - Patient Portal Instructions cp - Leadership Thank You Letter cp Prescriptions: - Golytely [id number] -5.86 gram Oral Recon Soln - administer 240 milliliter ORAL route every 1-2 hours until bowel movement; 2000 cp milliliter; Refills: 0, Product Selection Permitted Addendum: 06/02/2024 07:26 Co-signature as Attending Physician, Ryan Pemberton MD I agree with the assessment and c montero plan of care. Signatures: Dispatcher [employer] Ryan Nam MD MD cha Page, Corey, PA PA cp Korin Chin RN RN ap3 Vilma Cardenas RN RN ko1 Corrections: (The following items were deleted from the chart) 05/29 12:32 12:32 Abdomen Pelvis W Con+CT.RAD.BRZ ordered. EDMS EDMS
--- NOTE | 2024-05-29 16:24 | ER ---
Nurse's Notes [facility] Name: Selene Oneal Age: 74 yrs Sex: Female : 1950 Arrival Date: 05/29/2024 Time: 11:04 Bed 5 Private MD: Diagnosis: Constipation, unspecified Presentation: 05/29 11:30 Chief complaint: Patient states: she has been having difficulty having bowel movements ap3 for approx 5 days, without the help of suppositories. patient states that her PCP gave her an rx for constulose 10gm once/daily as needed to help, but it has been unsuccessful. patient reports that she is passing minimal gas. Coronavirus screen: At this time, the client does not indicate any symptoms associated with coronavirus-19. Ebola Screen: No symptoms or risks identified at this time. Initial Sepsis Screen: Does the patient meet any 2 criteria? HR > 90 bpm. Does the patient have a suspected source of infection? No. Patient's initial sepsis screen is negative. Risk Assessment: Do you want to hurt yourself or someone else? Patient reports no desire to harm self or others. Onset of symptoms was May 24, 2024. 11:30 Method Of Arrival: Ambulatory ap3 11:30 Acuity: RUT 3 ap3 Triage Assessment: 11:34 General: Appears in no apparent distress. Behavior is calm, cooperative, appropriate ap3 for age. Pain: Complains of pain in abdomen Pain at worst was 9 out of 10 on a pain scale. Pain began gradually. Neuro: Level of Consciousness is awake, alert, obeys commands, Oriented to person, place, time, situation, Appropriate for age. Cardiovascular: Patient's skin is warm and dry. Respiratory: Airway is patent Respiratory effort is even, unlabored, Respiratory pattern is regular, symmetrical. GI: Bowel sounds present X 4 quads. Reports lower abdominal pain, upper abdominal pain, constipation, gaseousness. Historical: - Allergies: 11:34 Clarithromycin; ap3 11:34 Doxycycline (stomach pain); ap3 11:34 mycins; ap3 11:34 PENICILLINS; ap3 - PMHx: 11:34 Asthma; Bronchitis; fibrobyalgia; Hypertension; Osteoporosis; Sleep Apnea; ap3 - Immunization history:: Client reports having NOT received the Covid vaccine. Flu vaccine is up to date. - Infectious Disease History:: Denies. - Social history:: Smoking status: Patient/guardian denies using tobacco, the patient reports quitting approximately 50 years ago. Screenin:37 Abuse screen: Denies threats or abuse. Nutritional screening: No deficits noted. ap3 Tuberculosis screening: No symptoms or risk factors identified. 16:29 [facility] ED Fall Risk Assessment (Adult) History of falling in the last 3 months, ko1 including since admission No falls in past 3 months (0 pts) Confusion or Disorientation No (0 pts) Intoxicated or Sedated No (0 pts) Impaired Gait No (0 pts) Mobility Assist Device Used No (0 pt) Altered Elimination No (0 pt) Score/Fall Risk Level 0 - 2 = Low Risk Oriented to surroundings, Maintained a safe environment, Educated pt \T\ family on fall prevention, incl call for assistance when getting out of bed, Assessed \T\ reinforced patient's understanding of fall precautions, Provided non-skid footwear, Hourly rounding (assess needs \T\ fall precautionary measures) done. Assessment: 13:00 General: Appears in no apparent distress. Behavior is calm, cooperative, appropriate ko1 for age. Pain: Denies pain. Neuro: No deficits noted. Cardiovascular: No deficits noted. Respiratory: No deficits noted. GI: Abd is soft X 4 quads Reports bloating, constipation. GI: Abdomen is round distended. GI: Bowel sounds present X 4 quads. : No deficits noted. EENT: No deficits noted. Derm: No deficits noted. Musculoskeletal: No deficits noted. Vital Signs: 11:30 BP 138 / 84; Pulse 121; Resp 17; Temp 98; Pulse Ox 92% on R/A; Weight 83.01 kg; Height ap3 5 ft. 5 in. ; Pain 3/10; 11:30 Pulse 117; Pulse Ox 95% on R/A; ap3 15:16 BP 133 / 79; Pulse 94; Resp 15; Pulse Ox 98% ; ko1 16:29 BP 138 / 80; Pulse 92; Resp 16; Pulse Ox 100% on R/A; ko1 11:30 Body Mass Index 30.45 (83.01 kg, 165.1 cm) ap3 11:30 Pain Scale: Adult ap3 ED Course: 11:13 Patient arrived in ED. ra3 11:14 Ryan Rojo PA is PHCP. cp 11:14 Ryan Pemberton MD is Attending Physician. cp 11:34 Triage completed. ap3 11:38 Arm band placed on right wrist. ap3 11:38 Allergy band placed. ap3 12:36 XRAY Chest (1 view) In Process Unspecified. EDMS 12:41 CBC with Diff Sent. em1 12:41 CMP Sent. em1 12:41 Lipase Sent. em1 12:41 Magnesium Sent. em1 12:41 Initial lab(s) drawn, by me, sent to lab. Inserted saline lock: 20 gauge in left wrist, em1 using aseptic technique. Blood collected. Flushed with 10 mL NS. 13:41 Radiology exam delayed due to lab results not completed at this time. mw3 13:46 Vilma Cardenas, RN is Primary Nurse. ko1 14:01 Lab(s) recollected, by me, sent to lab. em1 15:02 CT Abd/Pelvis - PO and IV Contrast In Process Unspecified. EDMS 16:29 Provided Education on: meds. ko1 16:29 No provider procedures requiring assistance completed. IV discontinued, intact, ko1 bleeding controlled, No redness/swelling at site. Pressure dressing applied. Administered Medications: 13:57 Drug: NS 0.9% IV 500 ml 500 ml IV at 1 bolus once; to be given as a bolus over 60 ko1 minutes Volume: 500 ml; Route: IV; Rate: 1 bolus; Site: left forearm; 16:19 Follow up: Response: No adverse reaction; IV Status: Completed infusion; IV Intake: ko1 500ml 14:34 Drug: Lactulose PO 30 grams 45 ml PO once Volume: 45 ml; Route: PO; ko1 15:04 Follow up: Response: No adverse reaction ko1 16:25 Drug: Dulcolax PO Delayed Release Tablet 5 mg PO once Route: PO; ko1 Medication: 16:29 VIS not applicable for this client. ko1 Intake: 16:19 IV: 500ml; Total: 500ml. ko1 Outcome: 16:23 Discharge ordered by . cp 16:29 Discharged to home ambulatory, with family, ko1 16:29 Condition: stable 16:29 Discharge instructions given to patient, family, Instructed on discharge instructions, follow up and referral plans. medication usage, Demonstrated understanding of instructions, follow-up care, medications, 16:30 Prescriptions given X 1, ko1 16:32 Patient left the ED. ld1 Signatures: Dispatcher [employer] EDMS Jax Stevens em1 Ryan Rojo PA PA cp Prokisch, Amanda, RN RN ap3 Sayda Witt mw3 Karla Ramos RN RN ld1 Vilma Cardenas RN RN ko1 Daphne Levy ra3 Corrections: (The following items were deleted from the chart) 16:29 13:00 BP 138 / 80; Pulse 92bpm; Resp 16bpm; Pulse Ox 100% RA; ko1 ko1
[2024-05-29 17:05] VITALS: TEMP 98
[2024-05-29 17:08] VITALS: BP 138/80; O2SAT 100
== END 2024-05-29 16:32 | disposition home or self-care (01) ==
LOC: ER 11:04
DX: K59.00 Constipation, unspecified (principal); I10 Essential (primary) hypertension; G47.30 Sleep apnea, unspecified; M81.0 Age-related osteoporosis without current pathological fracture; J45.909 Unspecified asthma, uncomplicated; M79.7 Fibromyalgia; Z88.0 Allergy status to penicillin; Z88.1 Allergy status to other antibiotic agents
CPT/HCPCS: 96361; 85025; 36415; 83735; 83690; 80053; 74177; 71045; 96360; 99284; Q9967; J7040

== ENCOUNTER 2024-06-03 13:06 | Emergency (ER) | payer OTHER, BC ==
--- OUTSIDE RECORDS SUMMARY | 2024-06-03 13:12 | XMS REPORT | Continuity of Care Document ---
Author Name Unknown Address [address] [facility] [address] [place] [address] [facility] Address [address] [facility] [address] [place] [address] Care Team Providers Care Laminator Name Role Phone Silvia Kaminski Primary Care Physician [phone] SILVIA TORRE Attending Clinician Unavailable Tiffani Tabor Attending Clinician Unavailable JENNY AMADOR Attending Clinician Unavailable MD VICKY Attending Clinician UnavailMarissa Fragoso Attending Clinician [phone] KONG SIDDIQUI Attending Clinician Unavail able KONG SIDDIQUI Attending Clinician Unavail Kong Lane MD Attending Clinician [phone] BENITEZ NEWTON Attending Clinician Unavailable LAMONTE REYNA Attending Clinician Unavailable ANJEL SHELTON Attending Clinician Unava ilHERNESTO Vásquez Attending Clinician Unavailable BENITEZ SHETH Attending Clinician Unav keren RAMIREZ Attending Clinician Unavailable NIKITA JACOBO Attending Clinician UnavailNikita Valle MD Attending Clinician [phone] Edson Poe MD Attending Clinician [phone] EDSON POE Attending Clinician Unavailable FLOOR, LAB HEM-ONC 2ND Attending Clinician Unava ilLamonte Senior MD R Attending Clinician LAB47 Attending Clinician Unavailable EKTA VARGHESE Attending Clinician Unavailable HERNESTO OLSON Attending Clinic tricia Unavailable Payers Payer Name Policy Type Policy Number Effective Date Expirati on Date Source MEDICARE-PART B 5 [id number] 2014 00:00:00 BCBS 2 [id number] 2017 00:00:00 Problems Condition Name Condition Details [...] cm. AHI 0 RDI 0.6 O2 94%. NCC 2016 - Wt. 193 lbs. AHI 18.8 [...] 05-26 00:00: 00 Abdominal pain Asthma [facility] DOXYCYCL INE DRUG INGREDI Active N/V 05-26 00:00: 00 [facility] Clindamy xochitl Propensi ty to adverse reaction s Active Other - See comments 09-07 00:00: 00 GI issues [facility] CLINDAMY XOCHITL DRUG INGREDI Active Other-Cmnt 09-07 00:00: 00 [facility] Erythrom ycin Propensi ty to adverse reaction s Active Rash 10-29 00:00: 00 [facility] ERYTHROM YCIN DRUG Active Rash 10-29 00:00: 00 [facility] Penicill ins Drug Allergy Active Rash 08-25 00:00: 00 Lavonne John Penicill ins Drug Allergy Active Rash 08-25 00:00: 00 [facility] PENICILL INS Drug Class Active High Rash 08-25 00:00: 00 [facility] Social History Social Habit Start Date Stop Date Quantity Comments Source History of tobacco use Cigarette Smoker [facility] Sexual orientation [facility] History of Social function 2024-03-19 00:00:00 2024-03-19 00:00:00 [facility] Tobacco use and exposure 2024-01-20 00:00:00 2024-01-20 00:00:00 Smokeless tobacco non-user [facility] Alcohol intake 2021-08-13 00:00:00 2021-08-13 00:00:00 Current non-drinker of alcohol (finding) Lavonne John Tobacco Comment 2007-10-30 00:00:00 2007-10-30 00:00:00 quit 1979 Lavonne John Sex assigned at 1950 00:00:00 1950 00:00:00 [facility] Smoking Status Start Date Stop Date Source Ex-smoker 2024-01-20 00:00:00 2024-01-20 00:00:00 [facility] Medications Ordered Medication Name Filled Medication Name Start Date Stop Date Current Medication? Ordering Clinician Indication Dosage Frequency Signature (SIG) Comments Components Source donepeziL (ARICEPT) 5 mg tablet 2023-05 00:00: 00 Yes [id number] 5mg Take 1 tablet by mouth at bedtime. [facility] acetaminoph en-codeine 300-15 mg tablet 01-19 12:19: 05 Yes 1{tbl} Take 1 tablet by mouth as needed. [facility] albuterol 2.5 mg /3 mL (0.083 %) nebulizer solution 01-19 12:19: 05 Yes [facility] albuterol 90 mcg/actuati on inhaler 01-19 12:19: 05 Yes [facility] ALPRAZolam 0.5 mg tablet 01-19 12:19: 05 Yes TAKE 1 TABLET BY MOUTH TWICE DAILY NEEDED [facility] fluconazole 100 mg tablet 01-19 12:19: 05 Yes 100mg Take 1 tablet by mouth in the morning. [facility] Fluticasone Propionate (FLOVENT DISKUS) 250 mcg/actuati on inhalation disk 01-19 12:19: 05 Yes INHALE 1 PUFF BY MOUTH TWICE DAILY [facility] NEXLIZET 180-10 mg Tab 01-18 00:00: 00 Yes Take 1 tablet every day by oral route. [facility] Cetirizine HCl (ZYRTEC) 10 MG OR [...] by 1 a day for 5 days. Lvaonne John Cetirizine HCl (ZYRTEC) 10 MG OR [...] injection 300 mg 3 20:45: 00 Yes [id number] 300mg Lavonne John Fluticasone -Salmeterol (Advair HFA) [...] subcutaneou s injection 07-17 00:00: 00 Yes [id number] 375mg Inject 375 mg into the skin [...] oral Tab 2019-05 0 00:00: 00 Yes [id number] 4mg [id number] 3D Take 1 tablet (4 mg total) [...] directed by physician. Lavonne John Nystatin (NYSTATIN) [id number] UNIT/ML mouth/throa t Suspension 2017-05 00:00: 00 02-08 00:00 :00 No [id number] Take 5 mL by mouth 4 times daily Lavonne John Nystatin [id number] UNIT/GM apply externally Ointment 2017-05 00:00: 00 Yes [id number] Apply BID to affected areas beneath breasts x 3-4 weeks for yeast/sushil us Lavonne John Betamethaso ne Dipropionat e 0.05 % apply externally Lotion 2017-05 00:00: 00 Yes [id number] Apply BID to rash of scalp prn. [...] Completed Lavonne Seybold Xolair 2019-08-31 00:00:00 Completed Lavonen Seybold Xolair 2019-08-31 00:00:00 Completed Lavonne Seybold [...] Age 65 And Up 2016-12-30 00:00:00 Completed Laovnne ybold Influenza Virus Vaccine, High Dose, Age [...] Completed Lavonne Seybold Xolair 2013-07-27 00:00:00 Completed Laovnne Seybold Xolair 2013-07-27 00:00:00 Completed Lavonne Seybold [...] Tetanus Toxoid, Adsorbed 2005-01-28 00:00:00 Completed Lavonne Guadarraamybold Vital Signs Vital Name Observation Time Observation Value Comments S ource Systolic blood pressure 2024-03-19 18:57:00 117 mm[Hg] [facility] Diastolic blood pressure 2024-03-19 18:57:00 79 mm[Hg] [facility] Heart rate 2024-03-19 18:57:00 101 /min General acute hospital Body height 2024-03-19 18:57:00 165.1 cm [facility] Body weight 2024-03-19 18:57:00 82.781 kg [facility] BMI 2024-03-19 18:57:00 30.37 kg/m2 [facility] Oxygen saturation in Arterial blood by Pulse oximetry 2024-03-19 18:57:00 96 /min [facility] Systolic blood pressure 2021-08-13 19:56:00 120 mm[Hg] [...] ,0.5 ML,IM,ADJUVANTED,TIV( FLUAD) 2024-03-19 19:49:54 Kong Siddiqui [facility] MR ANGIOGRAM NECK WO CONTRAST 2024-01-28 20:18:31 Chen [facility] MR ANGIOGRAM HEAD WO CONTRAST 2024-01-28 20:01:54 Chen [facility] Encounters Start Date/Time End Date/Time Encounter Type Admission Type Attending [facility] Care Facility Care Department Encounter ID Source 2023-12-02 14:30:00 Inpatient EL D'MARTIN SILVIA [facility] [id number] [facility] 2023-11-24 14:30:00 Inpatient EL D'MARTIN, SILVIA [facility] [id number] [facility] 2023-11-17 14:30:00 Inpatient EL D'MARTIN, SILVIA [facility] [id number] [facility] 2023-01-21 11:30:00 Inpatient EL D'MARTIN SILVIA [facility] [id number] [facility] 2022-12-20 13:00:00 Inpatient EL D'MARTIN, SILVIA [facility] [id number] [facility] 2021-08-09 14:00:02 [id number] 2021-06-06 14:14:22 Outpatient Tiffani Tabor [facility] [id number] [facility] 2021-06-06 14:05:53 Outpatient Tabor, Na [facility] [id number] [facility] 2021-06-06 13:55:44 Outpatient Tiffani Tabor [facility] ST[facility] [id number] [facility] 2021-06-06 13:50:27 Outpatient Tiffani Tabor STLML[facility] STL[facility]C [id number] [facility] 2021-06-06 13:41:11 Outpatient Tiffani Tabor STLMLC STLMLC [id number] [facility] 2021-06-06 13:06:49 Outpatient Tiffani Tabor STLMLC STLMLC [id number] [facility] 2021-06-06 13:02:25 Outpatient Tiffani Taobr STLMLC STLMLC [id number] [facility] 2021-06-06 12:29:08 Outpatient Tiffani Tabor STLMLC STLMLC [id number] [facility] 2021-06-06 12:02:37 Outpatient Tiffani Tabor STMIRIAMLC STLMLC [id number] [facility] 2021-06-06 11:36:04 Outpatient Tiffani Tabor STLMLC STLMLC [id number] [facility] 2024-05-25 15:24:00 2024-05-25 15:24:00 Outpatient JENNY LOPEZ [facility] [id number] [facility] 2024-05-21 12:04:00 2024-05-21 12:04:00 Outpatient JENNY LOPEZ [facility] [id number] [facility] 2024-03-23 00:00:00 2024-03-23 00:00:00 Outpatient MD LAVONNE AVILA [id number] Lavonne John 2024-03-19 13:00:00 2024-03-19 15:35:12 Office Visit Marissa Serrato [facility] [id number] [facility] 2024-01-28 14:00:00 2024-01-28 23:59:00 Outpatient KONG HARTMAN [facility] [id number] [facility] 2024-01-28 13:09:54 2024-01-28 23:59:00 Hospital Encounter Kong Siddiqui [facility] [id number] [id number] [facility] 2024-01-28 13:09:30 2024-01-28 23:59:00 Hospital Encounter ChenKong reyes [facility] [id number] [facility] 2024-01-16 15:41:00 2024-01-16 15:41:00 Outpatient SILVIA BENZ [facility] [id number] [facility] 2023-12-16 14:35:00 2023-12-16 14:35:00 Outpatient EL Alesia'SILVIA MARTIN [facility] [id number] [facility] 2023-11-10 16:31:00 2023-11-10 16:31:00 Outpatient EL SILVIA TORRE [facility] [id number] [facility] 2023-11-07 14:02:00 2023-11-07 14:02:00 Outpatient EL SILVIA TORRE [facility] [id number] [facility] 2023-09-01 16:14:00 2023-09-01 16:14:00 Outpatient BENITEZ RODRÍGUEZ [facility] [id number] [facility] 2023-07-25 14:14:00 2023-07-25 14:14:00 Outpatient BENITEZ RODRÍGUEZ [facility] [id number] [facility] 2023-07-23 14:45:00 2023-07-23 14:45:00 Outpatient BENITEZ RODRÍGUEZ [facility] [id number] [place] [facility] 2023-06-10 14:49:00 2023-06-10 14:49:00 Outpatient SILVIA BENZ [facility] [id number] [facility] 2023-04-07 14:20:00 2023-04-07 14:20:00 Outpatient SILVIA BENZ [facility] [id number] [facility] 2023-02-25 10:05:00 2023-02-25 10:05:00 Outpatient SILVIA BENZ [facility] [id number] [facility] 2022-12-09 10:46:00 2022-12-09 10:46:00 Outpatient SILVIA BENZ [facility] [id number] [facility] 2022-11-25 12:56:00 2022-11-25 12:56:00 Outpatient SILVIA BENZ [facility] [id number] [place] [facility] 2022-10-01 11:47:00 2022-10-01 11:47:00 Outpatient BENITEZ RODRÍGUEZ [facility] [id number] [facility] 2022-09-19 16:19:00 2022-09-19 16:19:00 Outpatient BENITEZ RODRÍGUEZ [facility] [id number] [place] [facility] 2022-07-09 14:40:00 2022-07-09 14:40:00 Outpatient LAMONTE REYNA LAVONNE MOORE [id number] [facility]onne [facility] 2022-05-21 13:30:00 2022-05-21 13:30:00 Outpatient ANJEL SHELTON LAVONNE MOORE [id number] [facility] 2022-01-21 13:45:00 2022-01-21 13:45:00 Outpatient INJ, HERNESTO LAVONNE MOORE [id number] [facility] 2021-12-24 14:00:00 2021-12-24 14:00:00 Outpatient INJ, HERNESTO LAVONNE MOORE [id number] [facility] 2021-12-07 15:45:00 2021-12-07 15:45:00 Outpatient LAVONNE MOORE [id number] Lavonne [facility] 2021-12-07 14:45:00 2021-12-07 14:45:00 Outpatient LAVONNE MOORE [id number] Lavonne [facility] 2021-12-07 14:15:00 2021-12-07 14:15:00 Outpatient LAVONNE LAVONNE [id number] [facility] 2021-12-07 13:15:00 2021-12-07 13:15:00 Outpatient LAVONNE MOORE [id number] [facility] 2021-11-29 14:00:00 2021-11-29 14:00:00 Outpatient INJ, HERNESTO LAVONNE MOORE [id number] [facility] 2021-11-26 14:00:00 2021-11-26 14:00:00 Outpatient INJ, HERNESTO LAVONNE MOORE [id number] [facility] 2021-11-22 00:00:00 2021-11-22 00:00:00 Outpatient BENITEZ SHETH [id number] [facility] 2021-11-13 00:00:00 2021-11-13 00:00:00 Outpatient MD LAVONNE AVILA [id number] [facility] 2021-11-06 13:45:00 2021-11-06 13:45:00 Outpatient TRED47 LAVONNE MOORE [id number] Lavonne [facility] 2021-11-05 14:00:00 2021-11-05 14:00:00 Outpatient TRED47 LAVONNE MOORE [id number] Lavonne [facility] 2021-11-01 14:30:00 2021-11-01 14:30:00 Outpatient TRED47 LAVONNE ESCALONASEY [id number] Lavonne [facility] 2021-11-01 14:00:00 2021-11-01 14:00:00 Outpatient INJ, HERNESTO MOORE LAVONNE [id number] Lavonne [facility] 2021-11-01 13:25:00 2021-11-01 13:25:00 Outpatient DOMENICBENITEZ LAVONNE [id number] Lavonne [facility] 2021-10-01 14:00:00 2021-10-01 14:00:00 Outpatient INJ, HERNESTO ESCALONALILI MOORE [id number] Lavonne [facility] 2021-08-29 14:00:00 2021-08-29 14:00:00 [id number] [facility] 00:00:00 2021-08-14 00:00:00 Outpatient CHRISTYNIKITA TINOCO LAVONNE MOORE [id number] Lavonne [facility] 2021-08-13 15:15:00 2021-08-13 15:15:00 Outpatient LAVONNE LAVONNE [id number] Lavonne [facility] 2021-08-13 14:50:00 2021-08-13 15:10:00 [facility] [id number] Lavonne [facility] 2021-08-07 00:00:00 2021-08-07 00:00:00 Outpatient CHUKCIE NIKITA LAVNONE MOORE [id number] [facility] 2021-08-01 14:00:00 2021-08-01 14:00:00 Outpatient INJ, REBAKOLBY LAVONNE MOORE [id number] [facility] 2021-07-19 13:00:00 2021-07-19 13:30:00 Office Visit Edson Poe [id number] Lavonne [facility] 2021-07-19 00:00:00 2021-07-19 00:00:00 Outpatient EDSON POE [facility] [id number] [facility] 2021-07-10 15:05:00 2021-07-10 15:05:00 Outpatient FLOOR, ALBIN MOORE [id number] Lavonne [facility] 2021-07-10 14:40:00 2021-07-10 15:00:00 Office Visit Lamonte Reyna [facility] [id number] Lavonne [facility] 2021-07-04 14:00:00 2021-07-04 14:00:00 Outpatient INJ, SAVANNAH LAVONNE MOORE [id number] [facility] 2021-06-06 14:00:00 2021-06-06 14:00:00 Outpatient INJ, SAVANNAH LAVONNE MOORE [id number] [facility] 2021-06-01 14:00:00 2021-06-01 14:00:00 Outpatient BOPPIDI, LAMONTE LAVONNE MOORE [id number] [facility] 2021-06-01 14:00:00 2021-06-01 14:00:00 Outpatient BOPPIDI, LAMONTE LAVONNE MOORE [id number] [facility] 2021-06-01 14:00:00 2021-06-01 14:00:00 Outpatient BOPPIDI, LAMONTE LAVONNE MOORE [id number] [facility] 2021-05-09 15:00:00 2021-05-09 15:00:00 Outpatient LAB47 LAVONNE MOORE [id number] [facility] 2021-05-09 14:30:00 2021-05-09 14:30:00 Outpatient INJ, SAVANNAH LAVONNE MOORE [id number] [facility] 2021-04-11 14:00:00 2021-04-11 14:00:00 Outpatient INJ, HERNESTO ESCALONALILI MOORE [id number] Lavonne [facility] 2021-04-09 00:00:00 2021-04-09 00:00:00 Outpatient ABIMAELEKTA JIMENEZLILI MOORE [id number] Lavonne [facility] 2021-03-27 00:00:00 2021-03-27 00:00:00 Outpatient LUI, EDSON ESCALONALILI MOORE [id number] Lavonne [facility] 2021-03-08 13:45:00 2021-03-08 13:45:00 Outpatient INJ, HERNESTO ESCALONALILI MOORE [id number] Lavonne [facility] 2021-03-05 14:00:00 2021-03-05 14:00:00 Outpatient ABIMAEL, EKTA LAVONNE MOORE [id number] [facility] 2021-02-23 00:00:00 2021-02-23 00:00:00 Outpatient LUI, EDSON LAVONNE MOORE [id number] [facility] 2021-02-16 18:30:00 2021-02-16 18:30:00 Outpatient LUI, EDSON MOORE LAVONNE [id number] [facility] 2021-02-16 00:00:00 2021-02-16 00:00:00 Outpatient LUI, EDSON MOORE LAVONNE [id number] [facility] 2021-02-16 00:00:00 2021-02-16 00:00:00 Outpatient LUI, EDSON ESCALONALILI MOORE [id number] [facility] 2021-02-15 00:00:00 2021-02-15 00:00:00 Outpatient LUI, ESDON ESCALONALILI MOORE [id number] [facility] 2021-02-08 13:50:00 2021-02-08 13:50:00 Outpatient COVID-MODER NA BOOSTER, HERNESTO LAVONNE MOORE [id number] [facility] 2021-02-08 13:18:40 2021-02-08 13:48:40 Office Visit Lui Edson ERIC [id number] [facility] 2021-02-08 13:45:00 2021-02-08 13:45:00 Outpatient INJ, HERNESTO MOORE [id number] Lavonne John 2021-02-08 00:00:00 2021-02-08 00:00:00 Outpatient EDSON POE [id number] Lavonne John 2021-02-07 00:00:00 2021-02-07 00:00:00 Outpatient EDSON POE [id number] Lavonne John 2021-01-22 14:40:00 2021-01-22 14:40:00 Outpatient ABIMAELEKTA [id number] Lavonne John 2021-01-11 14:30:00 2021-01-11 14:30:00 Outpatient INJ, HERNESTO MOORE [id number] Lavonne John 2020-12-14 13:30:00 2020-12-14 13:30:00 Outpatient INJ, HERNESTO MOORE [id number] Lavonne John 2020-11-28 00:00:00 2020-11-28 00:00:00 Outpatient EKTA VARGHESE [id number] Lavonne John 2020-11-16 14:15:00 2020-11-16 14:15:00 Outpatient INJ, HERNESTO MOORE [id number] [facility] Test Description Test Time Test Comments Results Resul t Comments Source MR ANGIOGRAM NECK WO CONTRAST 2024-01-11 8 20:37:29 MR ANGIOGRAPHY OF THE NECK WITH CONTRAST HISTORY: ?From outside [facility], had small vessel disease and occiptial [...] of superimposed mild stenosis seenalong its course. [facility] MR ANGIOGRAM HEAD WO CONTRAST 2024-01-11 8 20:12:28 MR ANGIOGRAPHY OF THE [place] of SMALL HISTORY: From outside [facility], had small vessel disease and occiptial lobstroke. C/O brain fog also TECHNIQUE: Time of flight MRA of the in[place] of small was obtained withoutcontrast COMPARISON: ?None. 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 [facility]
[2024-06-03 13:34] LABS: Absolute Basophils 0.1 K/uL (0-0.5); Absolute Eosinophils 0.1 K/uL (0-0.5); Absolute Lymphocytes (CBC) 2.8 K/uL (0.7-4.9); Absolute Monocytes 0.5 K/uL (0.1-1.3); Absolute Neutrophil 6.4 K/uL (1.8-8.0); Eosinophils % 0.9 % (0-4.4); Hematocrit 41.6 % (36.0-45.0); Hemoglobin 14.5 g/dL (12.0-15.0); Lymphocytes % 28.5 % (15.3-44.8); MCH 31.9 pg (27.0-35.0); MCHC 34.9 g/dL (32.0-36.0); MCV 91.6 fL (80-100); MPV 6.7 fL (7.6-11.3); Monocytes % 5.4 % (3.3-12.3); Neutrophils % 64.2 % (41.7-73.7); Nucleated Red Blood Cells % 0.1 % (0-0); Platelets 505 thou/uL (152-406); RBC Red Blood Cell Count 4.54 M/uL (3.86-4.86); Red Cell Distribution Width 13.4 % (12.1-15.2)
[2024-06-03 13:50] LABS: Calcium Oxalate Crystals- Ur Moderate /HPF (None Seen); Specific Gravity 1.021 (1.005-1.030); Sqamous Epithelial <5 /HPF (None Seen); Urine Bacteria None Seen /HPF (<20); Urine Bilirubin NEGATIVE (Negative); Urine Blood Negative (Negative); Urine Clarity Extremely Turbid (Clear); Urine Color Yellow (Yellow); Urine Culture Reflex Order NOT NEEDED; Urine Glucose NEGATIVE (Negative); Urine Ketones NEGATIVE (Negative); Urine Microscopic Reflex YN ORDER UMIC; Urine Mucus Slight /HPF (None Seen); Urine Nitrite NEGATIVE (Negative); Urine Protein NEGATIVE (Negative); Urine RBC None Seen /HPF (None Seen); Urine Urobilinogen Normal (Normal); Urine pH 6.5 (5.0-7.0)
[2024-06-03 13:53] LABS: Albumin 3.1 g/dL (3.4-5.0); Albumin/Globulin Ratio 0.9 (1.1-1.8); Anion Gap 10.2 mEq/L (5.0-15.0); Bilirubin Total 0.6 mg/dL (0.2-1.0); Globulin 3.6 g/dL (2.3-3.5); Potassium 3.2 mEq/L (3.5-5.1); Protein, Total 6.7 g/dL (6.4-8.2)
[2024-06-03] MEDS ORDERED: LACTULOSE 20 GM/30 ML UCUP ONE (15:09)
[2024-06-03] MEDS ORDERED: BISACODYL E.C. 5 MG TAB PO ONE (15:09)
--- NOTE | 2024-06-03 17:39 | RAD REPORT ---
EXAMINATION: CT Abdomen Pelvis W Contrast CLINICAL INDICATION: Female, 74 years old. Abd pain;Constipation TECHNIQUE: CT abdomen and pelvis was performed, after the administration of IV contrast, as per depar [facility] protocol. Axial, sagittal and coronal reconstructions were obtained. One or more of the following dose reduction techniques were used: Automated exposure control, adjustment of the mA and k V according to patient size, and iterative reconstruction. Unless otherwise specified, incidental findings do not require dedicated imaging follow-up. COMPARISON: 05/29/2024 FINDINGS: LOWER CHEST: The visualized lung bases are clear. LIVER: Normal in size and contour. No focal lesion. BILIARY SYSTEM: No suspicious abnormalities. SPLEEN: Normal size. No focal lesion. PANCREAS: No mass, ductal dilation, or luma-pancreatic fluid. ADRENALS: Normal; no mass. KIDNEYS: Normal size and contour. No hydronephrosis. 3 mm left interpolar nonobstructing calculus URINARY BLADDER: Decompressed limiting evaluation. GASTROINTESTINAL TRACT: Fluid opacification of nondistended distal small bowel and proximal large bow el to the level of the descending/sigmoid junction. No evidence of free air, significant intra-abdominal free fluid, bowel obstruction or abscess. APPENDIX: Normal appendix. LYMPH NODES: No lymphadenopathy. MUSCULOSKELETAL: No acute or suspicious osseous abnormality. Inferior endplate compression deformity at T10, appears stable. ADDITIONAL FINDINGS: None. IMPRESSION: Left renal interpolar 3 mL nonobstructing calculus. Fluid opacification of nondistended distal small bowel and proximal large bowel, nonspecific, and may relate to diarrheal state. No other acute or concerning abnormalities seen in the abdomen or pelvis.
[2024-06-03] MEDS ORDERED: POTASSIUM 25 MEQ EFFERV TAB ONE (17:59)
[2024-06-03] MEDS ORDERED: ONDANSETRON 4 MG/2 ML VIAL ONE (17:59)
--- NOTE | 2024-06-03 18:36 | ER ---
Nurse's Notes [facility] Name: Selene Oneal Age: 74 yrs Sex: Female : 1950 Arrival Date: 06/03/2024 Time: 13:06 Bed 20 Private MD: Diagnosis: Abdominal pain, unspecified Presentation: 06/03 13:17 Chief complaint: Patient states: Pt reports bowel blockage - reports coming to ER ld1 Friday. Left with perscription Golytely. "Only passed minimal stool." C/O ABD pain. Coronavirus screen: At this time, the client does not indicate any symptoms associated with coronavirus-19. Ebola Screen: No symptoms or risks identified at this time. Initial Sepsis Screen: Does the patient meet any 2 criteria? No. Patient's initial sepsis screen is negative. Does the patient have a suspected source of infection? No. Patient's initial sepsis screen is negative. Risk Assessment: Do you want to hurt yourself or someone else? Patient reports no desire to harm self or others. Onset of symptoms was June 03, 2024. 13:17 Method Of Arrival: Ambulatory ld1 13:17 Acuity: RUT 3 ld1 Triage Assessment: 13:17 General: Appears in no apparent distress. comfortable, Behavior is calm, cooperative, ld1 appropriate for age. Pain: Complains of pain in abdomen Pain does not radiate. Pain currently is 4 out of 10 on a pain scale. at worst was 8 out of 10 on a pain scale. Quality of pain is described as throbbing, Pain began suddenly. EENT: No signs and/or symptoms were reported regarding the EENT system. Neuro: Level of Consciousness is awake, alert, obeys commands, Oriented to person, place, time, situation. Cardiovascular: Capillary refill < 3 seconds Patient's skin is warm and dry. Respiratory: Airway is patent Respiratory effort is even, unlabored. GI: Abdomen is round non-distended, Reports lower abdominal pain, upper abdominal pain, constipation. : No signs and/or symptoms were reported regarding the genitourinary system. Derm: No signs and/or symptoms reported regarding the dermatologic system. Musculoskeletal: No signs and/or symptoms reported regarding the musculoskeletal system. Historical: - Allergies: 13:17 Clarithromycin; ld1 13:17 Doxycycline (stomach pain); ld1 13:17 mycins; ld1 13:17 PENICILLINS; ld1 - PMHx: 13:17 Asthma; Osteoporosis; Bronchitis; fibrobyalgia; Sleep Apnea; Hypertension; ld1 - Immunization history:: Adult Immunizations up to date. - Infectious Disease History:: Denies. - Social history:: Smoking status: Patient denies any tobacco usage or history of. Screenin:05 [facility] ED Fall Risk Assessment (Adult) History of falling in the last 3 months, bp including since admission No falls in past 3 months (0 pts) Confusion or Disorientation No (0 pts) Intoxicated or Sedated No (0 pts) Impaired Gait No (0 pts) Mobility Assist Device Used No (0 pt) Altered Elimination No (0 pt) Score/Fall Risk Level 0 - 2 = Low Risk Oriented to surroundings. Abuse screen: Denies threats or abuse. Denies injuries from another. Nutritional screening: No deficits noted. Tuberculosis screening: No symptoms or risk factors identified. Assessment: 15:05 General: Appears in no apparent distress. uncomfortable, Behavior is cooperative, bp appropriate for age, anxious. 16:48 Reassessment: RAMEZ ENNIS [id number], NEIGHBOR. bp 19:34 Reassessment: Patient is alert, oriented x 3, equal unlabored respirations, skin mt4 warm/dry/pink. Patient states symptoms have improved. Vital Signs: 13:17 Pulse 106; Resp 18; Temp 97.3(TE); Pulse Ox 94% on R/A; Weight 83.01 kg; Height 5 ft. 5 ld1 in. ; Pain 4/10; 13:20 BP 121 / 90; ld1 15:14 BP 149 / 94; Pulse 86; Resp 16; Pulse Ox 98% ; bp 19:33 BP 120 / 87; Pulse 94; Resp 16; Temp 97.9(O); Pulse Ox 96% on R/A; mt4 13:17 Body Mass Index 30.45 (83.01 kg, 165.1 cm) ld1 13:17 Pain Scale: Adult ld1 ED Course: 13:11 Patient arrived in ED. ra3 13:14 Ryan Rojo PA is PHCP. cp 13:14 Oneal Arana MD is Attending Physician. cp 13:17 Arm band placed on right wrist. ld1 13:19 Triage completed. ld1 13:29 Inserted saline lock: 20 gauge in left antecubital area, using aseptic technique. Blood ld1 collected. Flushed with 10 mL NS. 13:40 Urinalysis w/ reflexes Sent. ld1 15:03 Nile Alvarenga, RN is Primary Nurse. bp 15:05 Patient has correct armband on for positive identification. bp 17:15 CT Abd/Pelvis - PO and IV Contrast In Process Unspecified. EDMS 18:34 Alexandro Gamez MD is Referral Physician. cp 19:34 Provided Education on: DISCHARGE EDUCATION AND MEDS . mt4 19:34 No provider procedures requiring assistance completed. IV discontinued, bleeding mt4 controlled, No redness/swelling at site. Pressure dressing applied. Administered Medications: 15:15 Drug: Lactulose PO 30 grams 45 ml PO once Volume: 45 ml; Route: PO; bp 18:49 Follow up: Response: No adverse reaction bp 15:15 Drug: Dulcolax PO Delayed Release Tablet 5 mg PO once Route: PO; bp 18:49 Follow up: Response: No adverse reaction bp 18:00 Drug: Potassium PO Effervescent Tablet 50 mEq PO once; dissolve in 4 ounces of water or bp juice Route: PO; 18:49 Follow up: Response: No adverse reaction bp 18:00 Drug: Ondansetron IVP 4 mg IVP once; over 2 minutes Route: IVP; Site: left antecubital; bp 18:50 Follow up: Response: No adverse reaction bp Medication: 15:05 VIS not applicable for this client. bp Outcome: 18:36 Discharge ordered by . cp 19:34 Transferred mt4 19:34 Condition: stable 19:34 Discharge instructions given to patient, Instructed on discharge instructions, follow up and referral plans. medication usage, Demonstrated understanding of instructions, follow-up care, medications, 19:34 Prescriptions given X 2, 19:37 Patient left the ED. mt4 Signatures: Dispatcher [employer] EDWI Ryan Rojo PA PA cp Nile Alvarenga, RN RN bp Karla Ramos RN RN ld1 Daphne Levy ra3 Cale Thompson RN RN mt4
--- NOTE | 2024-06-03 18:36 | EDPHYS ---
Physician Documentation [facility] Name: Selene Oneal Age: 74 yrs Sex: Female : 1950 Arrival Date: 06/03/2024 Time: 13:06 Bed 20 Private MD: ED Physician Oneal Arana HPI: 06/03 13:50 This 74 yrs old Unknown Female presents to ER via Ambulatory with complaints of Bowel cp blockage. 13:50 The patient presents with possible blockage. cp 13:50 Patient returns to ED after being seen 5 days ago for constipation. Patient concerned cp about possible bowel blockage as she reports she took prescribed Golytely and hasn't had a normal bowel movement. Patient reports multiple, small loose bowel movements. Patient reports she has been passing gas. Historical: - Allergies: 13:17 Clarithromycin; ld1 13:17 Doxycycline (stomach pain); ld1 13:17 mycins; ld1 13:17 PENICILLINS; ld1 - PMHx: 13:17 Asthma; Osteoporosis; Bronchitis; fibrobyalgia; Sleep Apnea; Hypertension; ld1 - Immunization history:: Adult Immunizations up to date. - Infectious Disease History:: Denies. - Social history:: Smoking status: Patient denies any tobacco usage or history of. ROS: 13:55 Constitutional: Negative for body aches, chills, fever, poor PO intake, cp 13:55 Eyes: Negative for injury, pain, redness, and discharge, cp 13:55 Cardiovascular: Negative for chest pain, edema, palpitations, 13:55 Respiratory: Negative for cough, shortness of breath, wheezing, 13:55 Abdomen/GI: Positive for abdominal pain, constipation, Negative for vomiting, black/tarry stool, rectal bleeding, 13:55 Neuro: Negative for altered mental status, dizziness, headache, syncope, weakness, 13:55 All other systems are negative, Exam: 14:00 Constitutional: The patient appears in no acute distress, alert, awake, cp non-diaphoretic, non-toxic, well developed, well nourished, 14:00 Head/Face: Normocephalic, atraumatic. cp 14:00 Eyes: Periorbital structures: appear normal, Conjunctiva: normal, no exudate, no injection, Sclera: no appreciated abnormality, Lids and lashes: appear normal, bilaterally, 14:00 ENT: External ear(s): are unremarkable, Nose: is normal, Mouth: Lips: moist, Oral mucosa: moist, Posterior pharynx: Airway: no evidence of obstruction, patent, 14:00 Chest/axilla: Inspection: normal, 14:00 Cardiovascular: Rate: tachycardic, Rhythm: regular, Edema: is not appreciated, JVD: is not appreciated, 14:00 Respiratory: the patient does not display signs of respiratory distress, Respirations: normal, no use of accessory muscles, no retractions, labored breathing, is not present, Breath sounds: are clear throughout, no decreased breath sounds, no stridor, no wheezing, 14:00 Abdomen/GI: Inspection: abdomen appears normal, Bowel sounds: active, all quadrants, Palpation: soft, in all quadrants, mild abdominal tenderness, in all quadrants, rebound tenderness, is not appreciated, 14:00 Back: pain, is absent, ROM is normal, 14:00 Neuro: Orientation: to person, place \T\ time. Mentation: is normal, Motor: moves all fours, Gait: is steady, at a normal pace, without difficulty, Vital Signs: 13:17 Pulse 106; Resp 18; Temp 97.3(TE); Pulse Ox 94% on R/A; Weight 83.01 kg; Height 5 ft. 5 ld1 in. ; Pain 4/10; 13:20 BP 121 / 90; ld1 15:14 BP 149 / 94; Pulse 86; Resp 16; Pulse Ox 98% ; bp 19:33 BP 120 / 87; Pulse 94; Resp 16; Temp 97.9(O); Pulse Ox 96% on R/A; mt4 13:17 Body Mass Index 30.45 (83.01 kg, 165.1 cm) ld1 13:17 Pain Scale: Adult ld1 MDM: 18:36 Medical Screening Exam initiated cp 18:36 Data reviewed: vital signs, nurses notes, lab test result(s), radiologic studies, CT cp scan, and as a result, I will discharge patient. 18:36 Differential diagnosis: bowel obstruction, non-specific abd pain, pancreatitis, cp Pyelonephritis, Ureterolithiasis, urinary tract infection. I considered the following discharge prescriptions or medication management in the emergency department Medications were administered in the Emergency Department. See MAR. Care significantly affected by the following chronic conditions: Hypertension. Counseling: I had a detailed discussion with the patient and/or guardian regarding the historical points, exam findings, and any diagnostic results supporting the discharge/admit diagnosis, lab results, radiology results, the need for outpatient follow up, a head of strategy, to return to the emergency department if symptoms worsen or persist or if there are any questions or concerns that arise at home. Response to treatment: the patient's symptoms have mildly improved after treatment, and as a result, I will discharge patient. Special discussion: Based on the patient's Hx, exam, and Dx evaluation, there is no indication for emergent surgery or inpatient Tx. It is understood by the patient/guardian that if the Sx's persist or worsen they need to return immediately for re-evaluation. 06/03 13:25 Order name: CBC with Diff; Complete Time: 13:49 ld1 06/03 13:25 Order name: CMP; Complete Time: 13:57 ld1 06/03 13:57 Interpretation: Normal except: K 3.2; CL 109; GLUC 145; GFR 59; ALB 3.1; GLOB 3.6; A/G cp 0.9. 06/03 13:25 Order name: Lipase; Complete Time: 13:57 ld1 06/03 13:25 Order name: Urinalysis w/ reflexes; Complete Time: 13:57 ld1 06/03 13:50 Order name: CT Abd/Pelvis - PO and IV Contrast; Complete Time: 17:51 cp 06/03 17:52 Interpretation: Report reviewed. cp 06/03 13:25 Order name: IV Saline Lock; Complete Time: 13:25 ld1 06/03 13:25 Order name: Labs collected and sent; Complete Time: 13:25 ld1 Administered Medications: 15:15 Drug: Lactulose PO 30 grams 45 ml PO once Volume: 45 ml; Route: PO; bp 18:49 Follow up: Response: No adverse reaction bp 15:15 Drug: Dulcolax PO Delayed Release Tablet 5 mg PO once Route: PO; bp 18:49 Follow up: Response: No adverse reaction bp 18:00 Drug: Potassium PO Effervescent Tablet 50 mEq PO once; dissolve in 4 ounces of water or bp juice Route: PO; 18:49 Follow up: Response: No adverse reaction bp 18:00 Drug: Ondansetron IVP 4 mg IVP once; over 2 minutes Route: IVP; Site: left antecubital; bp 18:50 Follow up: Response: No adverse reaction bp Disposition Summary: 06/03/24 18:36 Discharge Ordered Notes: Location: Home cp Problem: new cp Symptoms: have improved cp Condition: Stable cp Diagnosis - Abdominal pain, unspecified cp Followup: cp - With: Alexandro Gamez MD - When: 5 - 6 days - Reason: symptoms continue Discharge Instructions: - Discharge Summary Sheet cp - Abdominal Pain, Adult cp Forms: - Medication Reconciliation Form cp - Antibiotic Education cp - Prescription Opioid Use cp - Patient Portal Instructions cp - Leadership Thank You Letter cp Prescriptions: - Zofran 4 mg Oral Tablet - take 1 tablet ORAL route every 12 hours As needed; 20 tablet; Refills: 0, cp Product Selection Permitted - dicyclomine 20 mg Oral tablet - take 1 tablet ORAL route 4 times per day; 20 tablet; Refills: 0, Product cp Selection Permitted Signatures: Dispatcher [employer] EDRyan Mckinney PA PA cp Nile Alvarenga, RN RN Karla Kaur RN RN ld1
[2024-06-03 23:07] VITALS: BP 120/87; TEMP 97.9; O2SAT 96
== END 2024-06-03 19:37 | disposition home or self-care (01) ==
LOC: ER 13:06
DX: R10.9 Unspecified abdominal pain (principal); K59.00 Constipation, unspecified
CPT/HCPCS: 85025; 81001; 36415; 83690; 80053; 74177; 96374; 99285; Q9967; J2405